=== PATIENT | female | born 1985 | race Caucasian/White ===

== ENCOUNTER → 2020-02-26 15:31 | Outpatient (BNVA) | payer OTHER, SELFPAY | PROVIDERS: PCP Internal Medicine; Visit Provider Internal Medicine | DX: J30.9 Allergic rhinitis, unspecified (principal); J44.9 Chronic obstructive pulmonary disease, unspecified; U07.1 COVID-19; E66.9 Obesity, unspecified; G47.33 Obstructive sleep apnea (adult) (pediatric); Z99.89 Dependence on other enabling machines and devices | CPT/HCPCS: Q3014 ==

== ENCOUNTER 2020-03-03 14:24 | Outpatient (REF) | payer OTHER, SELFPAY ==
[2020-03-03 15:10] LABS: Influenza A PCR NEGATIVE (Negative); Influenza B PCR NEGATIVE (Negative); Resp Syncy Virus RNA Qual PCR NEGATIVE (Negative)
[2020-03-03 15:14] LABS: SARS COV2 PCR INHOUSE POSITIVE (Negative)
== END 2020-03-03 14:25 | disposition home or self-care (01) ==
LOC: HO.LNP 14:24
PROVIDERS: Visit Provider Internal Medicine
DX: Z20.828 Contact with and (suspected) exposure to other viral communicable diseases (principal)
CPT/HCPCS: 0241U

== ENCOUNTER → 2020-03-13 14:24 | Outpatient (BNVA) | payer OTHER, SELFPAY | PROVIDERS: PCP Internal Medicine; Visit Provider Internal Medicine | DX: U07.1 COVID-19 (principal); J30.9 Allergic rhinitis, unspecified; G47.33 Obstructive sleep apnea (adult) (pediatric); J45.909 Unspecified asthma, uncomplicated; Z99.89 Dependence on other enabling machines and devices | CPT/HCPCS: 99212 ==

== ENCOUNTER 2020-03-21 14:56 | Outpatient (REF) | payer OTHER, SELFPAY ==
[2020-03-21 16:09] LABS: Estimated Average Glucose 108 mg/dL; Hemoglobin A1c % 5.4 %
[2020-03-21 16:32] LABS: Anion Gap 15 (12-20); Blood Urea Nitrogen 9 mg/dL (9-16); Calcium 8.8 mg/dL (8.4-10.2); Carbon Dioxide 24 mmol/L (22-29); Chloride 103 mmol/L (96-108); Estimated Glomerular Filt Rate > 60; Glucose Random 115 mg/dL (60-115); Potassium 4.3 mmol/L (3.3-5.1); Sodium 138 mmol/L (135-145)
[2020-03-21 16:54] LABS: Thyroid Stimulating Hormone 2.93 uIU/mL (0.32-4.0)
== END 2020-03-21 14:57 | disposition home or self-care (01) ==
LOC: HO.LAB 14:56
PROVIDERS: PCP Internal Medicine; Visit Provider Internal Medicine
DX: J45.909 Unspecified asthma, uncomplicated (principal); G47.33 Obstructive sleep apnea (adult) (pediatric); J44.9 Chronic obstructive pulmonary disease, unspecified
CPT/HCPCS: 36415; 80048; 83036; 84443

== ENCOUNTER 2020-06-13 14:59 | Outpatient (REF) | payer OTHER, SELFPAY ==
[2020-06-13 15:43] LABS: MANUAL DIFF FLAG NO
[2020-06-13 15:47] LABS: Basophils Absolute Auto 0.1 X10*3/uL (0.0-0.2); Basophils Percent Auto 0.5 % (0-2); Eosinophils Absolute Auto 0.3 X10*3/uL (0.0-0.4); Hematocrit 41.3 % (37-47); Hemoglobin 13.1 g/dl (12.0-16.0); Imm Gran Abs Auto 0.06 X10*3/uL (0.00-0.03); Imm Gran Pct Auto 0.5 % (0.0-0.4); Lymphocytes Percent Auto 24.3 % (20-40); Mean Corpuscular HGB Conc 31.7 g/dl (31.0-35.0); Mean Corpuscular Hemoglobin 27.8 pg (27.0-33.0); Mean Corpuscular Volume 87.5 fL (80-98); Mean Platelet Volume 9.5 fL (9.4-12.3); Monocytes Absolute Auto 0.7 X10*3/uL (0.1-1.2); Monocytes Percent Auto 5.7 % (2-11); Neutrophils Absolute Auto 8.4 X10*3/uL (2.0-8.3); Platelet Count 566 X10*3/uL (160-400); Red Blood Count 4.72 X10*6/uL (4.20-5.50); Red Cell Distribution Width 13.4 % (11.0-16.0); White Blood Count 12.5 X10*3/uL (4.8-10.8)
[2020-06-13 16:00] LABS: Glucose Urine UA NEG (NEG); Leukocyte Esterase Urine NEG (NEG); Nitrite Urine NEG (NEG); PH 5.5 (5.0-8.0); Specific Gravity - Urine 1.025 (1.005-1.025); Urine Blood NEG (NEG); Urine Ketones NEG (NEG); Urine Protein NEG (NEG-TRACE)
[2020-06-13 16:02] LABS: Appearance Urine CLEAR; Color Urine YELLOW
[2020-06-13 16:09] LABS: Alanine Aminotransferase 15 U/L (0-31); Albumin Level 4.3 g/dL (3.5-5.0); Alkaline Phosphatase 66 U/L (39-117); Anion Gap 14 (12-20); Aspartate Amino Transferase 14 U/L (5-31); Bilirubin Total 0.5 mg/dL (0.0-1.0); Blood Urea Nitrogen 12 mg/dL (9-16); Calcium 9.6 mg/dL (8.4-10.2); Carbon Dioxide 26 mmol/L (22-29); Chloride 102 mmol/L (96-108); Estimated Glomerular Filt Rate > 60; Glucose Random 79 mg/dL (60-115); Potassium 4.6 mmol/L (3.3-5.1); Sodium 137 mmol/L (135-145); Total Protein 7.2 g/dL (6.5-8.0)
[2020-06-13 16:19] LABS: Microalbum/Creatinine Ratio Ur 11.4 ug/mg cr
[2020-06-13 16:29] LABS: Thyroid Stimulating Hormone 2.67 uIU/mL (0.32-4.0)
== END 2020-06-13 15:00 | disposition home or self-care (01) ==
LOC: HO.LAB 14:59
PROVIDERS: PCP Internal Medicine; Visit Provider Internal Medicine
DX: R73.03 Prediabetes (principal); I10 Essential (primary) hypertension; Z87.898 Personal history of other specified conditions
CPT/HCPCS: 36415; 80053; 81003; 82043; 84443; 85025

== ENCOUNTER 2020-06-25 14:34 | Outpatient (REF) | payer OTHER, SELFPAY ==
[2020-06-28 05:56] LABS: HPV mRNA E6/E7 rflx Not Detected (Not Detected)
== END 2020-06-25 14:35 | disposition home or self-care (01) ==
LOC: HO.LAB 14:34
PROVIDERS: PCP Internal Medicine; Visit Provider Obstetrics & Gynecology
DX: Z01.419 Encounter for gynecological examination (general) (routine) without abnormal findings (principal); Z11.51 Encounter for screening for human papillomavirus (HPV); Z91.09 Other allergy status, other than to drugs and biological substances
CPT/HCPCS: 87624; 88142

== ENCOUNTER → 2020-08-04 13:58 | Outpatient (BNVA) | payer OTHER, SELFPAY | PROVIDERS: PCP Internal Medicine; Visit Provider Internal Medicine | DX: J45.909 Unspecified asthma, uncomplicated (principal); G47.33 Obstructive sleep apnea (adult) (pediatric); E66.01 Morbid (severe) obesity due to excess calories; Z99.89 Dependence on other enabling machines and devices; Z79.899 Other long term (current) drug therapy | CPT/HCPCS: 99212 ==

== ENCOUNTER 2020-09-11 08:32 | Outpatient (REF) | payer OTHER, SELFPAY ==
[2020-09-11 09:49] LABS: Anion Gap 14 (12-20); Blood Urea Nitrogen 9 mg/dL (9-16); Calcium 9.6 mg/dL (8.4-10.2); Carbon Dioxide 24 mmol/L (22-29); Chloride 105 mmol/L (96-108); Cholesterol 196 mg/dL; Estimated Glomerular Filt Rate > 60; Glucose Fasting 108 mg/dL (60-99); HDL Cholesterol 48 mg/dL; LDL Cholesterol Calculated 104 mg/dl; Potassium 4.8 mmol/L (3.3-5.1); Sodium 138 mmol/L (135-145); Triglycerides 221 mg/dL
== END 2020-09-11 08:33 | disposition home or self-care (01) ==
LOC: HO.LAB 08:32
PROVIDERS: Visit Provider Internal Medicine
DX: I10 Essential (primary) hypertension (principal); J45.909 Unspecified asthma, uncomplicated; G47.33 Obstructive sleep apnea (adult) (pediatric)
CPT/HCPCS: 36415; 80048; 80061

== ENCOUNTER → 2021-01-07 13:49 | Outpatient (BNVA) | payer OTHER, SELFPAY | PROVIDERS: PCP Internal Medicine; Visit Provider Internal Medicine ==

== ENCOUNTER → 2021-03-10 14:48 | Outpatient (BNVA) | payer OTHER, SELFPAY | PROVIDERS: PCP Internal Medicine; Visit Provider Internal Medicine ==

== ENCOUNTER 2021-10-29 17:33 | Outpatient (REF) | payer OTHER, SELFPAY ==
[2021-10-30 16:50] LABS: H Pylori Breath Test Negative (Negative)
== END 2021-10-29 17:34 | disposition home or self-care (01) ==
LOC: HO.LNP 17:33
PROVIDERS: Visit Provider Physician Assistant
DX: Z01.818 Encounter for other preprocedural examination (principal); G47.33 Obstructive sleep apnea (adult) (pediatric); E66.01 Morbid (severe) obesity due to excess calories; J44.9 Chronic obstructive pulmonary disease, unspecified; Z99.89 Dependence on other enabling machines and devices
CPT/HCPCS: 83013

== ENCOUNTER 2021-10-30 13:30 | Outpatient (REF) | payer OTHER, SELFPAY ==
--- NOTE | ~2021-10-30 | XR_ITS ---
EXAMINATION: XR CHEST 2 VIEWS CLINICAL INFORMATION: Morbid obesity. COMPARISON: Chest radiograph dated 11/12/2019. TECHNIQUE: Frontal and lateral views of the chest were obtained. FINDINGS: The heart, great vessels, pulmonary vasculature and mediastinum are normal. The lungs show no focal infiltrate, effusion or pneumothorax. There is mild elevation of the right hemidiaphragm. There is no acute osseous abnormality. XR/XR chest 2V IMPRESSION: No active cardiopulmonary disease.
--- NOTE | 2021-10-30 13:38 | ECG_ITS ---
Test Reason : e66.01 Blood Pressure : / mmHG Vent. Rate : 092 BPM Atrial Rate : 092 BPM P-R Int : 138 ms QRS Dur : 084 ms QT Int : 340 ms P-R-T Axes : 030 049 031 degrees QTc Int : 420 ms Normal sinus rhythm Normal ECG When compared with ECG of 23-DEC-2018 04:51, No significant change was found Referred By: Caryn Garibay Electronically Signed By:HUBER SALGADO
[2021-10-30 13:51] LABS: MANUAL DIFF FLAG NO
[2021-10-30 14:06] LABS: Basophils Absolute Auto 0.1 X10*3/uL (0.0-0.2); Basophils Percent Auto 0.6 % (0-2); Eosinophils Absolute Auto 0.3 X10*3/uL (0.0-0.4); Eosinophils Percent Auto 3.2 % (0-4); Hematocrit 40.8 % (37.0-47.0); Hemoglobin 13.3 g/dl (12.0-16.0); Imm Gran Abs Auto 0.04 X10*3/uL (0.00-0.03); Imm Gran Pct Auto 0.4 % (0.0-0.4); Lymphocytes Percent Auto 20.1 % (20-40); Mean Corpuscular HGB Conc 32.6 g/dl (31.0-35.0); Mean Corpuscular Hemoglobin 28.3 pg (27.0-33.0); Mean Corpuscular Volume 86.8 fL (80.0-98.0); Mean Platelet Volume 9.6 fL (9.4-12.3); Monocytes Absolute Auto 0.6 X10*3/uL (0.1-1.2); Monocytes Percent Auto 5.9 % (2-11); Neutrophils Absolute Auto 7.1 x10*3/uL (2.0-8.3); Neutrophils Percent Auto 69.8 % (45-73); Platelet Count 493 X10*3/uL (160-400); Red Cell Distribution Width 14.4 % (11.0-16.0); White Blood Count 10.1 X10*3/uL (4.8-10.8)
[2021-10-30 14:15] LABS: Estimated Average Glucose 108 mg/dL; Hemoglobin A1c % 5.4 %
[2021-10-30 14:35] LABS: Alanine Aminotransferase 21 U/L (0-31); Albumin Level 4.1 g/dL (3.5-5.0); Alkaline Phosphatase 63 U/L (39-117); Anion Gap 18 (12-20); Aspartate Amino Transferase 18 U/L (5-31); Bilirubin Total 0.4 mg/dL (0.0-1.0); Blood Urea Nitrogen 10 mg/dL (9-16); C Reactive Protein 2.07 mg/dL (< or = 0.50); Carbon Dioxide 23 mmol/L (22-29); Chloride 105 mmol/L (96-108); Cholesterol 197 mg/dL; Estimated Glomerular Filt Rate > 60; Glucose Random 106 mg/dL (60-115); HDL Cholesterol 60 mg/dL; Iron 125 mcg/dL (30-160); Percent Iron Saturation 25 % (15-50); Potassium 4.7 mmol/L (3.3-5.1); Sodium 141 mmol/L (135-145); Total Iron Binding Capacity 497 mcg/dL (228-428); Total Protein 7.3 g/dL (6.5-8.0); Unsaturated Iron Binding 372 ug/dL
[2021-10-30 14:58] LABS: LDL Cholesterol Calculated 96 mg/dl; Triglycerides 209 mg/dL
[2021-10-30 15:01] LABS: Folate 9.8 ng/mL (> or = 4.0); Vitamin B12 209 pg/mL (200-900)
[2021-10-30 15:03] LABS: Ferritin 38 ng/mL (10-122); Vitamin D 25-OH Total 18.2 ng/mL (>30)
[2021-10-30 15:33] LABS: Insulin 10 uU/mL (2-29)
[2021-11-01 13:56] LABS: PTHI 117 pg/mL (16-77)
[2021-11-03 16:56] LABS: Zinc 75 mcg/dL (60-130)
[2021-11-05 12:02] LABS: Vitamin A 66 mcg/dL (38-98)
[2021-11-06 06:32] LABS: Vitamin B1 13 nmol/L (8-30)
== END 2021-10-30 13:31 | disposition home or self-care (01) ==
LOC: HO.LAB 13:30
PROVIDERS: Visit Provider Physician Assistant
DX: Z01.818 Encounter for other preprocedural examination (principal); E66.01 Morbid (severe) obesity due to excess calories; G47.33 Obstructive sleep apnea (adult) (pediatric); J44.9 Chronic obstructive pulmonary disease, unspecified; Z99.89 Dependence on other enabling machines and devices
CPT/HCPCS: 36415; 71046; 80053; 80061; 82306; 82607; 82728; 82746; 83036; 83525; 83540; 83970; 84425; 84443; 84590; 84630; 85025; 86140; 93005

== ENCOUNTER → 2021-11-24 13:34 | Outpatient (BNVA) | payer OTHER, SELFPAY | PROVIDERS: PCP Nurse Practitioner Family; Visit Provider Dietitian, Registered | DX: E66.01 Morbid (severe) obesity due to excess calories (principal) | CPT/HCPCS: 97802 ==

== ENCOUNTER 2021-12-08 14:03 | Outpatient (REF) | payer OTHER, SELFPAY ==
[2021-12-08 15:36] LABS: Alanine Aminotransferase 22 U/L (0-31); Albumin Level 4.3 g/dL (3.5-5.0); Alkaline Phosphatase 68 U/L (39-117); Anion Gap 16 (12-20); Aspartate Amino Transferase 18 U/L (5-31); Bilirubin Total 0.4 mg/dL (0.0-1.0); Blood Urea Nitrogen 14 mg/dL (9-16); Calcium 9.6 mg/dL (8.4-10.2); Carbon Dioxide 25 mmol/L (22-29); Chloride 103 mmol/L (96-108); Estimated Glomerular Filt Rate > 60; Glucose Random 111 mg/dL (60-115); Potassium 4.5 mmol/L (3.3-5.1); Sodium 139 mmol/L (135-145)
[2021-12-10 14:57] LABS: Calcium (PTHI) 9.4 mg/dL (8.6-10.2); PTHI 68 pg/mL (16-77)
[2021-12-12 07:32] LABS: Calcium, Ionized 4.9 mg/dL (4.8-5.6)
== END 2021-12-08 14:04 | disposition home or self-care (01) ==
LOC: HO.LAB 14:03
PROVIDERS: PCP Nurse Practitioner Family; Visit Provider Nurse Practitioner Family
DX: E34.9 Endocrine disorder, unspecified (principal)
CPT/HCPCS: 36415; 80053; 82330; 83970

== ENCOUNTER → 2021-12-08 14:32 | Outpatient (BNV) | payer OTHER, SELFPAY | PROVIDERS: PCP Nurse Practitioner Family; Referring Provider Nurse Practitioner Family; Visit Provider Internal Medicine | DX: D75.839 Thrombocytosis, unspecified (principal) | CPT/HCPCS: 99204; 99213; 99214 ==

== ENCOUNTER → 2021-12-10 13:00 | Outpatient (BNVA) | payer OTHER, SELFPAY | PROVIDERS: Visit Provider Counselor Mental Health | DX: F43.20 Adjustment disorder, unspecified (principal); E66.01 Morbid (severe) obesity due to excess calories | CPT/HCPCS: 90791 ==

== ENCOUNTER → 2021-12-15 13:20 | Outpatient (BNVA) | payer OTHER, SELFPAY | PROVIDERS: PCP Nurse Practitioner Family; Visit Provider Dietitian, Registered | DX: E66.01 Morbid (severe) obesity due to excess calories (principal); Z68.42 Body mass index [BMI] 45.0-49.9, adult | CPT/HCPCS: 97803 ==

== ENCOUNTER 2021-12-17 07:54 | Outpatient (REF) | payer OTHER, SELFPAY ==
--- NOTE | ~2021-12-17 | FL_ITS ---
EXAMINATION: XR FLUOROSCOPY UPPER GI WITH AIR CLINICAL INFORMATION: Obesity. COMPARISON: None. TECHNIQUE: Air-contrast upper GI examination. FINDINGS: There is normal apposition of the vocal cords while saying E. There is normal elevation of the soft palate while saying candy. Patient swallowed thin and thick barium and a half-inch diameter barium tablet without difficulty. No nasopharyngeal reflux or tracheal aspiration identified. There is normal esophageal motility without evidence of persistent stricture or ulcerations/erosions. No hiatal hernia was identified. There was noted to be mild gastroesophageal reflux within the distal 3rd of the esophagus which cleared rapidly. The stomach demonstrated normal distensibility without evidence of abnormal mass or ulceration. There was no delay in gastric emptying. The duodenal bulb and sweep appeared unremarkable. FLUOROSCOPY TIME: 1.4 minutes. DOSE AREA PRODUCT: 13.768 Gy-cm2 (em-centimeter squared) FL/FL upper GI w air IMPRESSION: Mild gastroesophageal reflux distal 3rd of the esophagus which clears rapidly. Otherwise unremarkable air-contrast upper GI examination.
--- NOTE | ~2021-12-17 | US_ITS ---
EXAMINATION: US COMPLETE ABDOMEN WITH LIVER ELASTOGRAPHY CLINICAL INFORMATION: Obesity COMPARISON: Previous abdominal ultrasound February 2015 TECHNIQUE: Real-time imaging of the abdominal viscera. Noninvasive ultrasound liver fibrosis assessment is performed using Tyson ElastPQ point quantification shear wave elastography (2D-SWE) with a C5-2 MHz transducer. Multiple elastography samples are obtained. FINDINGS: PANCREAS: Normal. ABDOMINAL AORTA: The proximal and middle aortic segments are normal in caliber. Distal abdominal aorta is not well visualized bowel gas. INFERIOR VENA CAVA: Visualized portions are normal. LIVER: Liver echotexture is slightly increased. The liver is enlarged. The liver contour is normal. No focal lesion or intrahepatic biliary duct dilatation. The right lobe measures 23 cm in length. The left lobe measures 13 cm in length. Portal flow is normal/hepatopedal Shear wave liver elastography median stiffness is 2.4 m/s (reference: normal median stiffness is 1.3 m/s or less). IQR/median stiffness to assess sampling precision is 0.07 (reference: good quality data set is IQR/median stiffness of 0.15 or less). GALLBLADDER: Normal. The gallbladder is physiologically distended without evidence of stones, sludge, polyps, wall thickening or pericholecystic fluid. COMMON BILE DUCT: Normal in caliber measuring 0.6 cm in diameter. RIGHT KIDNEY: Normal. No hydronephrosis. No renal calculi or focal parenchymal lesions. The kidney measures 13 cm in maximum dimension. LEFT KIDNEY: Normal. No hydronephrosis. No renal calculi or focal parenchymal lesions. The kidney measures 13 cm in maximum dimension. SPLEEN: Normal. The spleen measures 12 cm in maximum dimension. FREE FLUID: None. US/US abdomen comp w elastography IMPRESSION: 1. Impression enlarged echogenic liver. No focal liver lesion or evidence of cirrhosis. Limited visualization of the distal abdominal aorta. 2. Liver elastography: Adequate liver sampling. Increased liver stiffness suggestive of clinically significant portal hypertension. REFERENCE: Society of Radiologists in Ultrasound Liver Stiffness Thresholds (2020): LIVER STIFFNESS THRESHOLDS: *Liver Stiffness equal or less than 1.3 m/s: High probability of being normal. *Liver Stiffness less than 1.7 m/s: In the absence of other known clinical signs, rules out compensated advanced chronic liver disease. *Liver Stiffness 1.7-2.1 m/s: Suggestive of compensated advanced chronic liver disease but need further test for confirmation. *Liver Stiffness over 2.1 m/s: Rules in compensated advanced chronic liver disease. *Liver Stiffness over 2.4 m/s: Suggestive of clinically significant portal hypertension. QUALITY OF DATA SET: *IQR/Median value equal or less than 0.15 implies a quality data set. *IQR/Median value over 0.15 implies a poor quality data set. SIGNIFICANT CHANGE FROM PRIOR EXAM: Significant change if liver stiffness measurement is 10% or greater from prior exam. OTHER CONSIDERATIONS: The stage of liver fibrosis may be overestimated in the setting of acute hepatitis, liver inflammation, elevated liver function tests, hepatic vascular congestion, obstructive cholestasis, non-fasting state, and infiltrative diseases such as amyloidosis and lymphoma. In some patients with NAFLD, the liver stiffness thresholds for compensated advanced chronic liver disease may be lower. In causes other than viral hepatitis and NAFLD, liver stiffness thresholds are not well established.
== END 2021-12-17 07:55 | disposition home or self-care (01) ==
LOC: HO.US 07:54
PROVIDERS: Visit Provider Physician Assistant
DX: Z01.818 Encounter for other preprocedural examination (principal); E66.01 Morbid (severe) obesity due to excess calories; G47.33 Obstructive sleep apnea (adult) (pediatric); J44.9 Chronic obstructive pulmonary disease, unspecified; Z99.89 Dependence on other enabling machines and devices
CPT/HCPCS: 74246; 76705; 76981

== ENCOUNTER → 2021-12-23 14:07 | Outpatient (REF) | payer OTHER, SELFPAY ==
--- NOTE | 2021-12-23 14:11 | CA_ITS ---
Transthoracic Echocardiogram Amended Patient (Last, First, Middle): Kellie Abraham A Gender: Female Date of : 1985 Age: 36 Procedure Date: 12/23/2021 Procedure Type: Transthoracic Echocardiogram Location: OP Height: 162.56 cm Weight: 130.64 kg BSA: 2.28 m2 Heart Rate: bpm BP: 170 / 100 mmHg Poly Operator: AJ Referring MD: Emmanuel Collins [facility] Symptoms: R01.1 - Cardiac murmur, unspecified Study Quality: Adequate ECG Rhythm: Sinus Conclusions: - The left ventricular systolic function is normal. The calculated ejection fraction is 63% by biplane method. - Possible basal inferior hypokinesis. - No obvious valvular pathology seen on this study. Findings Left Ventricle Normal left ventricular cavity size. There is normal left ventricular wall thickness. The left ventricular systolic function is normal. The calculated ejection fraction is 63% by biplane method. Diastolic function is normal for age. Possible basal inferior hypokinesis. Right Ventricle Normal right ventricular cavity size and systolic function. Atria Both atria are normal in size. Aortic Valve There is a normal trileaflet aortic valve. There is no aortic valve stenosis. There is trace (trivial) aortic valve regurgitation. Mitral Valve The mitral valve appears normal. There is trace mitral valve regurgitation. There is no mitral valve stenosis. Pulmonic Valve The pulmonic valve is likely normal. Tricuspid Valve Normal tricuspid valve structure. There is trace tricuspid valve regurgitation. There is no evidence of pulmonary hypertension. Great Vessels The asc aorta is normal in size. Venous The inferior vena cava is normal in size and collapses greater than 50% with inspiration. Pericardium/Pleural There is no evidence of pericardial effusion. Prior Study Comparison No prior study available for comparison. Recommendations, Care & Conclusions No obvious valvular pathology seen on this study. Measurements 2D Linear Measurements IVSd: 1.00 0.6-0.9/0.6-1.0 cm LVIDd: 5.02 3.9-5.3/4.2-5.9 cm LVIDd Index: 2.20 2.4-3.2/2.2-3.1 cm/m2 LVIDs: 2.99 2.0-3.6 cm LVPWd: 1.00 0.7-1.1 cm LA Diam: 3.80 2.7-3.8/3.0-4.0 cm LAIDs Index: 1.67 1.5-2.3 cm/m2 LV Mass: 228.22 67-162/88-224 g LV Mass Index: 100.10 43-95/49-115 g/m2 LVOT Diam: 1.90 3.0+(-)1.3 cm 2D Volumes LA Vol: 20.40 2D Systolic Function EF 4C: 54.30 >55% EF 2C: 68.20 >55% EF BiP: 62.50 >55% Mitral Valve MV Pk E: 1.30 MV PK A: 0.88 MV Decel Time: 189.00 E/A: 1.50 E'Lateral: 11.40 E'Medial: 7.45 E/E' Med: 17.40 E/E' Lat: 11.40 PHT: 55.00 MVA PHT: 4.00 Decel [place]: 6.86 Aortic Valve AoV Pk [place]: 1.47 AoV Mn [place]: 1.02 AoV VTI: 0.31 AoV Pk Grad: 9.00 Aov Mn Grad: 5.00 ANAT Cont.VTI: 2.62 LVOT LVOT Pk [place]: 1.32 LVOT Mn [place]: 0.91 LVOT VTI: 0.29 LVOT Pk Grad: 7.00 LVOT Mn Grad: 4.00 LVOT Diam: 1.90 LVOT Area: 2.84 Diastolic Function MV Pk E: 1.30 MV Pk A: 0.88 E/A: 1.50 E'Medial: 7.45 E/E' Med: 17.40 E' Laterial: 11.40 E/E' Lat: 11.40 Right Ventricle TAPSE (mm): 20.30 TVS' [place]: 11.70 Tricuspid Valve TR Pk [place]: 1.81 TR Pk Grad: 13.00 RA Press: 3.00 RVSP: 16.00 Great Vessels Aorta Sinus of Valsalva: 3.10 2.0-3.5 cm Ao Asc: 3.20 2.1-3.4 cm Pulmonary Valve PV Pk [place]: 1.03 Peak PV Grad: 4.00 Updated in Other Vendor System with Status of Final Danilo Lorenzo MD electronically signed on 04/06/2022 3:23:33 PM with status of Final
== END ==
LOC: HO.CARD 14:07
PROVIDERS: Visit Provider Nurse Practitioner Family
DX: R01.1 Cardiac murmur, unspecified (principal)
CPT/HCPCS: 93306

== ENCOUNTER 2021-12-27 11:05 | Emergency (ER) | payer OTHER, SELFPAY ==
--- NOTE | 2021-12-27 | ECG_ITS ---
Test Reason : CHEST PAIN/SOB Blood Pressure : / mmHG Vent. Rate : 134 BPM Atrial Rate : 134 BPM P-R Int : 124 ms QRS Dur : 082 ms QT Int : 290 ms P-R-T Axes : 044 065 021 degrees QTc Int : 433 ms Sinus tachycardia Abnormal ECG When compared with ECG of 30-OCT-2021 13:43, Heart rate has increased Referred By: Generic ED Physician Electronically Signed By:KERI FISCHER MD
--- NOTE | ~2021-12-27 | XR_ITS ---
EXAMINATION: XR CHEST CLINICAL INFORMATION: Cough. COMPARISON: None TECHNIQUE: PA view of the chest was obtained. XR/XR chest 1V FINDINGS/IMPRESSION: The study is limited by portable technique, low lung volumes, and patient body habitus. Approximately 1.7 cm, round density projects over the confluence of pulmonary vessels and ribs, and was not clearly evident 2 months prior. Differential diagnosis includes, but is not limited to, overlapping normal anatomical structures, and, less likely, unusual infiltrate, etc. If further imaging is clinically desired, repeat standing upright PA, lateral, and bilateral oblique views of the chest in full inspiration may be of use for further evaluation. The study is otherwise essentially unremarkable. No effusion or pneumothorax is seen. The cardiovascular structures, mediastinum, diaphragm, bones and soft tissues appear unremarkable.
--- NOTE | ~2021-12-27 | CT_ITS ---
EXAMINATION: CT ANGIOGRAM OF THE CHEST WITH AND WITHOUT CONTRAST (CT PULMONARY ANGIOGRAM FOR PE) CLINICAL INFORMATION: Reason for Exam SOB, tachycardia COMPARISON: 02/03/2018 TECHNIQUE: Prior to contrast administration, noncontrast localization images were obtained. Subsequently, multidetector volumetric imaging was performed from the thoracic inlet to below the diaphragms following the administration of 140 mL Omnipaque 350 intravenous contrast. Repeat bolus was required due to suboptimal first scan No contrast reaction reported Sagittal, coronal, and MIP oblique sagittal reformatted images were obtained on the CT workstation, uploaded to PACS, and reviewed. This CT examination was performed using dose optimization techniques as appropriate, variously including the following: *Automated exposure control *Adjustment of mA and/or kV according to patient size (this includes techniques or standardized protocols for targeted exams where dose is matched to indication/reason for exam; i.e. extremities or head) *Use of iterative reconstruction technique Total exam dose-length product 1001 mGy-cm FINDINGS: QUALITY OF STUDY/CONTRAST BOLUS: Suboptimal. PULMONARY ARTERIES: No central or lobar pulmonary embolus is seen. However, there is inadequate assessment of the segmental and subsegmental vessels bilaterally due to suboptimal bolus timing, and therefore emboli at these levels cannot be entirely excluded. THORACIC AORTA: No aneurysm or dissection. LUNG: There is a focal region of consolidation in the posterior right lower lobe measuring up to approximately 4.6 cm. Additional patchy, less well-defined region of opacity is also present in the anterior right upper lobe. The left lung appears clear. PLEURA: No pleural effusion or pneumothorax. MEDIASTINUM: Visualized thyroid gland is unremarkable. A few mildly prominent right paratracheal lymph nodes are noted, which may be reactive. Borderline cardiomegaly without pericardial effusion. No evidence of septal bowing or right heart strain. CHEST WALL/AXILLA: No axillary or internal mammary lymphadenopathy. OSSEOUS STRUCTURES: No acute or suspicious osseous abnormality. UPPER ABDOMEN: Unremarkable. No reflux of contrast into the hepatic veins to suggest elevated right heart pressures. CT/CT angio chest PE protocol IMPRESSION: 1. No central or lobar pulmonary embolus identified. However, there is inadequate assessment of the segmental and subsegmental vessels bilaterally due to suboptimal bolus timing, and therefore emboli at these levels cannot be entirely excluded. 2. Focal region of consolidation in the posterior right lower lobe, suspicious for pneumonia. Additional patchy region of opacity in the anterior right upper lobe. Given the focal appearance of the right lower lobe consolidation, follow-up chest CT in 3 months is advised to assess for resolution and exclude underlying mass. 3. Mildly prominent right paratracheal lymph nodes, which may be reactive. VTE: negative
[2021-12-27 11:14] VITALS: BP 183/95; PULSE 143; RESP 20; TEMP 37.8; O2SAT 97; BMI 31.9
[2021-12-27 11:55] LABS: Basophils Absolute Auto 0.1 X10*3/uL (0.0-0.2); Basophils Percent Auto 0.3 % (0-2); Eosinophils Percent Auto 0.1 % (0-4); Hemoglobin 13.9 g/dl (12.0-16.0); Imm Gran Abs Auto 0.11 X10*3/uL (0.00-0.03); Imm Gran Pct Auto 0.6 % (0.0-0.4); Lymphocytes Absolute Auto 1.4 X10*3/uL (1.2-4.9); Lymphocytes Percent Auto 7.2 % (20-40); MANUAL DIFF FLAG SCAN; Mean Corpuscular HGB Conc 33.1 g/dl (31.0-35.0); Mean Corpuscular Hemoglobin 28.4 pg (27.0-33.0); Mean Corpuscular Volume 85.9 fL (80.0-98.0); Mean Platelet Volume 10.1 fL (9.4-12.3); Monocytes Absolute Auto 1.1 X10*3/uL (0.1-1.2); Neutrophils Absolute Auto 16.2 x10*3/uL (2.0-8.3); Neutrophils Percent Auto 85.8 % (45-73); PLT CLUMP 1; Red Blood Count 4.89 X10*6/uL (4.20-5.50); SCAN SMEAR FLAG 1
[2021-12-27 12:09] LABS: Anion Gap 22 (12-20); Blood Urea Nitrogen 10 mg/dL (9-16); Calcium 9.2 mg/dL (8.4-10.2); Carbon Dioxide 16 mmol/L (22-29); Chloride 104 mmol/L (96-108); Creatinine Clr Calc Pharmacy 115.7; Estimated Glomerular Filt Rate > 60; Glucose Random 145 mg/dL (60-115); Potassium 4.5 mmol/L (3.3-5.1); Sodium 137 mmol/L (135-145)
[2021-12-27 12:16] LABS: Platelet Count 389 X10*3/uL (160-400); White Blood Count 18.9 X10*3/uL (4.8-10.8)
[2021-12-27 12:17] LABS: COVID-19 Test Negative (Negative); SLIDE REVIEW VERIFIED
[2021-12-27 18:13] VITALS: BP 147/110; PULSE 120; RESP 18; TEMP 37.3; O2SAT 98
[2021-12-27 18:19] VITALS: O2SAT 98
[2021-12-27 19:26] VITALS: PULSE 116
--- NOTE | 2021-12-27 20:07 | ED.URI ---
HPI - URI/Sore Throat General Chief Complaint: Upper Respiratory Symptoms Stated Complaint: Chest pain/Fever Time Seen by Provider: 12/27/21 19:21 Source: patient Mode of arrival: ambulatory History of Present Illness HPI Narrative: 36-year-old female has been feeling unwell with body aches, cough, sore throat and noted that she had a fever at noon today that was measured at 102 and patient took Tylenol. Otherwise, she denies any shortness of breath, chest pain/palpitations, nausea, vomiting, diarrhea, nasal congestion. Related Data Home Medications Medication Instructions Recorded Confirmed fexofenadine 60 mg capsule 180 mg PO DAILY 01/07/21 12/08/21 amlodipine 10 mg tablet 5 mg PO DAILY 10/13/21 12/08/21 Previous Rx's Medication Instructions Recorded albuterol sulfate 90 mcg/actuation 2 puff inhalation Q4-6H PRN 03/07/20 aerosol inhaler (ProAir HFA) shortness of breath or wheezing #8.5 grams cholecalciferol (vitamin D3) 50 50 mcg PO DAILY #30 caps 11/02/21 mcg (2,000 unit) capsule cyanocobalamin (vitamin B-12) 500 500 mcg PO DAILY #30 tabs 11/02/21 mcg tablet l.norgest-eth.estradiol triphasic 1 tab PO DAILY 30 days #30 tabs 11/12/21 50-30 (6)/75-40(5)/125-30(10) tablet fluticasone 250 mcg-salmeterol 50 1 inh inhalation BID 90 days #3 ea 11/13/21 mcg/dose blistr powdr for inhalation montelukast 10 mg tablet 10 mg PO DAILY #90 tabs 11/13/21 doxycycline hyclate 100 mg capsule 100 mg PO BID 7 days #14 caps 12/28/21 Allergies Allergy/AdvReac Type Severity Reaction Status Date / Time ENVIRONMENTAL Allergy Intermediate RUNNY Uncoded 12/02/21 15:07 NOSE, ASTHMA FLARE UP Review of Systems Review of Systems: Pertinent positives and negatives as stated in HPI 10 point review of systems is otherwise negative. PMFSH Past Medical History Source: nursing notes reviewed Medical History Allergic rhinitis Asthma Chest pain COPD (chronic obstructive pulmonary disease) COVID-19 Morbid obesity Obesity (BMI 30-39.9) TISHA on CPAP Surgical History History of carpal tunnel surgery History of loop electrical excision procedure (LEEP) Family History Family History Father HTN (hypertension) Mother HTN (hypertension) Social History Social History Household Members: None Housing: Apartment Alcohol intake: current Alcohol intake frequency: holidays/special occasions only Patient Tobacco Use Status: Never used Tobacco Smoked in Last 30 Days: No e-Cigarette/Vaping Use: Never Used Second Hand Smoke Exposure: No Use of substances other than those prescribed or required for medical reasons: No Advance Directives: No Advance Directives Information Provided: Yes service: No Current occupational status: employed Current occupation: [employer] Current occupational exposures/hazards: No Gender identity: Female Cognitive needs: No Hearing needs: No Vision needs: No Physical Exam Vital Signs: Vital Signs: Last Vital Signs Temp 99.0 F 12/27/21 20:56 Pulse 106 H 12/27/21 22:00 Resp 20 12/27/21 22:00 BP 173/83 H 12/27/21 20:56 Pulse Ox 96 12/27/21 22:00 O2 Del Method 12/27/21 22:00 BMI result Body Mass Index 31.9 VITAL SIGNS: Reviewed. GENERAL: Elevated BMI, Well developed, well nourished, in no acute distress. HEAD: Normocephalic/atraumatic EYES: PERRLA, EOMI EARS: Ext canals without abnormality OROPHARYNX: no oral lesions noted, posterior pharynx clear NECK: Supple, no adenopathy LUNGS: Normal breath sounds. No adventitious sounds or accessory muscle use. SpO2<98> CARDIOVASCULAR: Regular rate and rhythm without noted murmurs ABDOMEN: Soft, non-tender, non-distended with bowel sounds. MUSCULOSKELETAL: No tenderness, deformities, or effusions noted on gross inspection. EXTREMITIES: No cyanosis, clubbing or edema. SKIN: Inspection of the skin reveals no rashes NEUROLOGIC: Alert and oriented x 4. Strength and sensation to light touch were grossly intact x 4. Course Course Course Narrative: 36-year-old female with history and clinical presentation consistent with viral syndrome and suspect RSV as on review of all investigations she is negative for COVID-19 On review of all investigations patient has a pneumonia, she is oxygenating well otherwise and hers received IV fluids as well as antibiotics. All results were discussed with her bedside she is discharged home in stable condition with antibiotics for pneumonia and suspect the urinalysis is a dirty urine given the number squamous epithelial cells. Patient received antibiotics in the emergency room, heart rate is noted to have improved. And she is discharged home in stable condition. MDM - URI/Sore Throat Lab Data Result diagrams: 12/27/21 11:47 12/27/21 11:47 Labs: Lab Results 12/27/21 12/27/21 12/27/21 Range/Units 11:47 11:47 11:47 WBC 18.9 H (4.8-10.8) X10*3/uL RBC 4.89 (4.20-5.50) X10*6/uL Hgb 13.9 (12.0-16.0) g/dl Hct 42.0 (37.0-47.0) % MCV 85.9 (80.0-98.0) fL MCH 28.4 (27.0-33.0) pg MCHC 33.1 (31.0-35.0) g/dl RDW 14.0 (11.0-16.0) % Plt Count 389 (160-400) X10*3/uL MPV 10.1 (9.4-12.3) fL Immature Gran % (Auto) 0.6 H (0.0-0.4) % Neut % (Auto) 85.8 H (45-73) % Lymph % (Auto) 7.2 L (20-40) % [place] % (Auto) 6.0 (2-11) % Eos % (Auto) 0.1 (0-4) % Baso % (Auto) 0.3 (0-2) % Lymph # (Auto) 1.4 (1.2-4.9) X10*3/uL [place] # (Auto) 1.1 (0.1-1.2) X10*3/uL Eos # (Auto) 0.0 (0.0-0.4) X10*3/uL Baso # (Auto) 0.1 (0.0-0.2) X10*3/uL Abs Immat Gran (auto) 0.11 H (0.00-0.03) X10*3/uL Absolute Neuts (auto) 16.2 H (2.0-8.3) x10*3/uL Absolute Nucleated RBC 0.000 (0.0-0.012) X10*3/uL Nucleated RBC % (auto) 0.0 (0.0-0.2) /100WBC Smear Tech's Comments VERIFIED D-Dimer High Sensitivty NG/ML Sodium 137 (135-145) mmol/L Potassium 4.5 (3.3-5.1) mmol/L Chloride 104 (96-108) mmol/L Carbon Dioxide 16 L (22-29) mmol/L Anion Gap 22 H (12-20) BUN 10 (9-16) mg/dL Creatinine 0.72 (0.5-1.4) mg/dL Estim Creat Clear Calc 115.7 Estimated GFR > 60 Random Glucose 145 H (60-115) mg/dL Calcium 9.2 (8.4-10.2) mg/dL Beta HCG, Quant 5 mIU/mL Urine Color Urine Appearance Urine pH (5.0-9.0) Ur Specific [place] (1.005-1.025) Urine Protein (Neg-Trace) mg/dL Urine Glucose (UA) (Negative) mg/dL Urine Ketones (Negative) mg/dL Urine Blood (Negative) Urine Nitrite (Negative) Ur Leukocyte Esterase (Negative) Urine RBC (0-2) /HPF Urine WBC (0-5) /HPF Ur Squamous Epith Cells (0-2) /HPF Urine Bacteria (None Seen) Hyaline Casts (0-2) /LPF COVID-19 (EZ) Negative (Negative) COVID-19 Clin Com See Note Influenza Type A (PCR) (Negative) Influenza Type B (PCR) (Negative) RSV RNA Qual (PCR) (Negative) SARS-CoV-2 RNA (RT-PCR) (Negative) S. pyogenes GrpA MARCY (Negative) 12/27/21 12/27/21 12/27/21 Range/Units 19:41 21:03 21:11 WBC (4.8-10.8) X10*3/uL RBC (4.20-5.50) X10*6/uL Hgb (12.0-16.0) g/dl Hct (37.0-47.0) % MCV (80.0-98.0) fL MCH (27.0-33.0) pg MCHC (31.0-35.0) g/dl RDW (11.0-16.0) % Plt Count (160-400) X10*3/uL MPV (9.4-12.3) fL Immature Gran % (Auto) (0.0-0.4) % Neut % (Auto) (45-73) % Lymph % (Auto) (20-40) % [place] % (Auto) (2-11) % Eos % (Auto) (0-4) % Baso % (Auto) (0-2) % Lymph # (Auto) (1.2-4.9) X10*3/uL [place] # (Auto) (0.1-1.2) X10*3/uL Eos # (Auto) (0.0-0.4) X10*3/uL Baso # (Auto) (0.0-0.2) X10*3/uL Abs Immat Gran (auto) (0.00-0.03) X10*3/uL Absolute Neuts (auto) (2.0-8.3) x10*3/uL Absolute Nucleated RBC (0.0-0.012) X10*3/uL Nucleated RBC % (auto) (0.0-0.2) /100WBC Smear Tech's Comments D-Dimer High Sensitivty 391 NG/ML Sodium (135-145) mmol/L Potassium (3.3-5.1) mmol/L Chloride (96-108) mmol/L Carbon Dioxide (22-29) mmol/L Anion Gap (12-20) BUN (9-16) mg/dL Creatinine (0.5-1.4) mg/dL Estim Creat Clear Calc Estimated GFR Random Glucose (60-115) mg/dL Calcium (8.4-10.2) mg/dL Beta HCG, Quant mIU/mL Urine Color Yellow Urine Appearance Cloudy Urine pH 6.5 (5.0-9.0) Ur Specific [place] >= 1.030 H (1.005-1.025) Urine Protein Trace (Neg-Trace) mg/dL Urine Glucose (UA) Negative (Negative) mg/dL Urine Ketones Trace (Negative) mg/dL Urine Blood Negative (Negative) Urine Nitrite Negative (Negative) Ur Leukocyte Esterase Moderate (2+) H (Negative) Urine RBC 3-5 H (0-2) /HPF Urine WBC 21-50 H (0-5) /HPF Ur Squamous Epith Cells 11-20 (0-2) /HPF Urine Bacteria 4+ (None Seen) Hyaline Casts 0-2 (0-2) /LPF COVID-19 (EZ) (Negative) COVID-19 Clin Com Influenza Type A (PCR) NEGATIVE (Negative) Influenza Type B (PCR) NEGATIVE (Negative) RSV RNA Qual (PCR) NEGATIVE (Negative) SARS-CoV-2 RNA (RT-PCR) NEGATIVE (Negative) S. pyogenes GrpA MARCY (Negative) 12/27/21 Range/Units 23:22 WBC (4.8-10.8) X10*3/uL RBC (4.20-5.50) X10*6/uL Hgb (12.0-16.0) g/dl Hct (37.0-47.0) % MCV (80.0-98.0) fL MCH (27.0-33.0) pg MCHC (31.0-35.0) g/dl RDW (11.0-16.0) % Plt Count (160-400) X10*3/uL MPV (9.4-12.3) fL Immature Gran % (Auto) (0.0-0.4) % Neut % (Auto) (45-73) % Lymph % (Auto) (20-40) % [place] % (Auto) (2-11) % Eos % (Auto) (0-4) % Baso % (Auto) (0-2) % Lymph # (Auto) (1.2-4.9) X10*3/uL [place] # (Auto) (0.1-1.2) X10*3/uL Eos # (Auto) (0.0-0.4) X10*3/uL Baso # (Auto) (0.0-0.2) X10*3/uL Abs Immat Gran (auto) (0.00-0.03) X10*3/uL Absolute Neuts (auto) (2.0-8.3) x10*3/uL Absolute Nucleated RBC (0.0-0.012) X10*3/uL Nucleated RBC % (auto) (0.0-0.2) /100WBC Smear Tech's Comments D-Dimer High Sensitivty NG/ML Sodium (135-145) mmol/L Potassium (3.3-5.1) mmol/L Chloride (96-108) mmol/L Carbon Dioxide (22-29) mmol/L Anion Gap (12-20) BUN (9-16) mg/dL Creatinine (0.5-1.4) mg/dL Estim Creat Clear Calc Estimated GFR Random Glucose (60-115) mg/dL Calcium (8.4-10.2) mg/dL Beta HCG, Quant mIU/mL Urine Color Urine Appearance Urine pH (5.0-9.0) Ur Specific [place] (1.005-1.025) Urine Protein (Neg-Trace) mg/dL Urine Glucose (UA) (Negative) mg/dL Urine Ketones (Negative) mg/dL Urine Blood (Negative) Urine Nitrite (Negative) Ur Leukocyte Esterase (Negative) Urine RBC (0-2) /HPF Urine WBC (0-5) /HPF Ur Squamous Epith Cells (0-2) /HPF Urine Bacteria (None Seen) Hyaline Casts (0-2) /LPF COVID-19 (EZ) (Negative) COVID-19 Clin Com Influenza Type A (PCR) (Negative) Influenza Type B (PCR) (Negative) RSV RNA Qual (PCR) (Negative) SARS-CoV-2 RNA (RT-PCR) (Negative) S. pyogenes GrpA MARCY Negative (Negative) Discharge Plan Discharge Clinical Impression: Pneumonia Patient Disposition: Home, Self-Care Instructions: Pneumonia (ED) Additional Instructions: 1. Resume all home medications as prescribed. 2. Complete the entire course of antibiotics as prescribed. 3. Recommend that you utilize [id number] Tylenol as needed for temperatures greater than 100.4. 4. Please follow-up with your primary care provider by calling the office tomorrow morning and setting up an appointment for re-evaluation. Return to the ER for worsening symptoms. Prescriptions: New doxycycline hyclate 100 mg capsule 100 mg PO BID 7 Days Qty: 14 0RF No Action albuterol sulfate [ProAir HFA] 90 mcg/actuation HFA aerosol inhaler 2 puff inhalation Q4-6H PRN (Reason: shortness of breath or wheezing) Qty: 8.5 2RF cyanocobalamin (vitamin B-12) 500 mcg tablet 500 mcg PO DAILY Qty: 30 6RF cholecalciferol (vitamin D3) 50 mcg (2,000 unit) capsule 50 mcg PO DAILY Qty: 30 6RF levonorg-eth estrad triphasic 50-30 (6)/75-40 (5)/125-30(10) tablet 1 tab PO DAILY 30 Days Qty: 30 2RF fluticasone propion-salmeterol 250-50 mcg/dose blister with device 1 inh inhalation BID 90 Days Qty: 3 2RF montelukast 10 mg tablet 10 mg PO DAILY Qty: 90 1RF fexofenadine 60 mg capsule 180 mg PO DAILY amlodipine 10 mg tablet 5 mg PO DAILY Referrals: Emmanuel Collins, [employer] [Primary Care Provider] -
[2021-12-27 20:28] LABS: Influenza A PCR NEGATIVE (Negative); Influenza B PCR NEGATIVE (Negative); Resp Syncy Virus RNA Qual PCR NEGATIVE (Negative); SARS COV2 PCR INHOUSE NEGATIVE (Negative)
[2021-12-27 20:56] VITALS: BP 173/83; PULSE 112; RESP 20; TEMP 37.2; O2SAT 95
[2021-12-27 21:13] LABS: HCG Quantitative 5 mIU/mL
[2021-12-27 21:17] LABS: Appearance Urine Cloudy; Color Urine Yellow; Glucose Urine UA Negative (Negative); Leukocyte Esterase Urine Moderate (2+) (Negative); Nitrite Urine Negative (Negative); PH 6.5 (5.0-9.0); Specific Gravity - Urine >= 1.030 (1.005-1.025); UMIC TRIGGER UACC YES; Urine Blood Negative (Negative); Urine Ketones Trace mg/dL (Negative); Urine Protein Trace mg/dL (Neg-Trace)
[2021-12-27 21:22] LABS: Bacteria Urine 4+ (None Seen); Hyaline Casts Urine 0-2 /LPF (0-2); UACC Culture Trigger YES; WBC Urine 21-50 /HPF (0-5)
[2021-12-27 21:23] LABS: D Dimer High Sensitivity 391 NG/ML
[2021-12-27 22:00] VITALS: PULSE 106; RESP 20; O2SAT 96
[2021-12-27] MEDS: ondansetron HCL 4 MG/2 ML VIAL IVPUSH (22:27)
[2021-12-27] MEDS: Acetaminophen 325 MG TABLET 975 MG PO (22:27)
[2021-12-27] MEDS: 0.9 % Sodium Chloride 1,000 ML 999 ML IV (22:40)
--- NOTE | 2021-12-27 23:20 | PC.NURSE ---
per Dr Prieto blood cultures and lactic acid are not needed at this time 2320.
[2021-12-27] MEDS: cefTRIAXone sodium 1 GM in 0.9 % Sodium Chloride 50 ML IV (23:23)
[2021-12-27 23:40] LABS: Strep A Nucleic Acid Negative (Negative)
--- NOTE | 2021-12-27 23:45 | PC.NURSE ---
Pt reported being nauseas after getting her IV placed. Zofran was administered and some time was given. Pt was poked again for a lab draw and reported that she felt like she was going to pass out and had to lay down. Labs were unable to be drawn at that time. I spoke to Dr Prieto about the situation and she stated that we do not need the labs at this time and I can start the antibiotics. Pt went to CT scan and came back feeling much better. Fluids and antibiotics are running at this time.
[2021-12-28 00:12] VITALS: BP 139/68; PULSE 99; RESP 22; TEMP 37; O2SAT 98
== END 2021-12-28 00:39 | disposition home or self-care (01) ==
PROVIDERS: Emergency Provider Student in an Organized Health Care Education/Training Program; PCP Nurse Practitioner Family
DX: J18.9 Pneumonia, unspecified organism (principal); R05.9 Cough, unspecified; M79.10 Myalgia, unspecified site; Z20.822 Contact with and (suspected) exposure to COVID-19; Z79.899 Other long term (current) drug therapy
CPT/HCPCS: 0241U; 36415; 71045; 71275; 80048; 81001; 84702; 85025; 85379; 87086; 87635; 87651; 93005; 99285; J0696; J2405; Q9967

== ENCOUNTER → 2022-02-25 13:23 | Outpatient (BNVA) | payer OTHER, SELFPAY | PROVIDERS: PCP Nurse Practitioner Family; Visit Provider Physician Assistant | DX: E66.01 Morbid (severe) obesity due to excess calories (principal) ==

== ENCOUNTER → 2022-03-17 13:45 | Outpatient (BNVA) | payer OTHER, SELFPAY | PROVIDERS: PCP Nurse Practitioner Family; Visit Provider Physician Assistant | DX: E66.9 Obesity, unspecified (principal); Z90.3 Acquired absence of stomach [part of]; E66.01 Morbid (severe) obesity due to excess calories; D75.839 Thrombocytosis, unspecified ==

== ENCOUNTER 2022-03-18 14:02 | Emergency (ER) | payer OTHER, SELFPAY ==
--- NOTE | ~2022-03-18 | XR_ITS ---
EXAMINATION: XR CHEST CLINICAL INFORMATION: Chest pain COMPARISON: Chest radiograph from 12/27/2021 TECHNIQUE: 2 views of the chest were obtained. FINDINGS: No focal consolidation. No pneumothorax. Trachea is midline. Cardiac mediastinal silhouette is not enlarged. No large pleural effusion. Osseous structures are intact. Soft tissues are unremarkable. XR/XR chest 2V IMPRESSION: No acute cardiopulmonary process.
--- NOTE | 2022-03-18 14:19 | ED.CHESTPAIN ---
HPI - Chest Pain General Chief Complaint: Chest Pain <Tessa Cabrales NP - Last Filed: 03/18/22 14:21> Stated Complaint: chest pain <Tessa Cabrales NP - Last Filed: 03/18/22 14:21> Time Seen by Provider: 03/18/22 17:12 <Tessa Cabrales NP - Last Filed: 03/18/22 14:21> Source: patient <SAMMY Roblero - Last Filed: 03/18/22 20:34> Mode of arrival: ambulatory <SAMMY Roblero - Last Filed: 03/18/22 20:34> Limitations: no limitations <SAMMY Roblero - Last Filed: 03/18/22 20:34> History of Present Illness HPI narrative: This is a 37-year-old female history of HTN, obesity, asthma, adjustment disorder, hyperparathyroidism, TISHA on CPAP here with chest pain since this morning. Patient reports that the chest pain is intermittent, substernal in nature, nonradiating, described as stabbing. Patient is unable to tell me what makes the pain better or worse. She denies shortness of breath lower extremity swelling, fevers, chills, upper respiratory symptoms, nausea, vomiting, abdominal pain, headache, vision changes, dizziness. <SAMMY Roblero - Last Filed: 03/18/22 20:34> Related Data Home Medications: Home Medications Medication Instructions Recorded Confirmed fexofenadine 60 mg capsule 180 mg PO DAILY 01/07/21 03/10/22 amlodipine 10 mg tablet 5 mg PO DAILY 10/13/21 03/10/22 Previous Rx's Medication Instructions Recorded albuterol sulfate 90 mcg/actuation 2 puff inhalation Q4-6H PRN 03/07/20 aerosol inhaler (ProAir HFA) shortness of breath or wheezing #8.5 grams cholecalciferol (vitamin D3) 50 50 mcg PO DAILY #30 caps 11/02/21 mcg (2,000 unit) capsule cyanocobalamin (vitamin B-12) 500 500 mcg PO DAILY #30 tabs 11/02/21 mcg tablet fluticasone 250 mcg-salmeterol 50 1 inh inhalation BID 90 days #3 ea 11/13/21 mcg/dose blistr powdr for inhalation montelukast 10 mg tablet 10 mg PO DAILY #90 tabs 11/13/21 l.norgest-eth.estradiol triphasic 1 tab PO DAILY 30 days #30 tabs 02/11/22 50-30 (6)/75-40(5)/125-30(10) tablet olmesartan 20 1 tab PO DAILY 30 days #30 tabs 03/17/22 mg-hydrochlorothiazide 12.5 mg tablet ketorolac 10 mg tablet 10 mg PO TID PRN pain 5 days #15 03/18/22 tabs <Tessa Cabrales NP - Last Filed: 03/18/22 14:21> Allergies/Adverse Reactions: Allergies Allergy/AdvReac Type Severity Reaction Status Date / Time ENVIRONMENTAL Allergy Intermediate RUNNY Uncoded 12/02/21 15:07 NOSE, ASTHMA FLARE UP <Tessa Cabrales NP - Last Filed: 03/18/22 14:21> Review of Systems Review of Systems: Constitutional : No Weight loss, No Fever, No Chills, No Fatigue, No Malaise ENT/Mouth : No sore throat, No Rhinorrhea Eyes: No Eye Pain, No Swelling, No Redness Cardiovascular : + Chest Pain, No SOB, No Dyspnea on Exertion, No Orthopnea, No Edema, No Palpitations Respiratory : No Cough, No Sputum, No Wheezing Gastrointestinal : No Nausea, No Vomiting, No Diarrhea, No Constipation, No abdominal Pain, No Hematochezia, No Melena Genitourinary : No Dysuria, No Urinary Frequency, No Hematuria, Musculoskeletal : No joint pain, No Myalgias, No Joint Swelling Skin : No Skin Lesions, No rash Neuro : No Weakness, No Numbness, No Dizziness, No Headache Psych : No Anxiety/Panic, No Depression All other systems reviewed and are negative <SAMMY Roblero - Last Filed: 03/18/22 20:34> Yes all other systems are reviewed and are negative <SAMMY Roblero - Last Filed: 03/18/22 20:34> PMFSH Past Medical History Medical History: Medical History Allergic rhinitis Asthma Chest pain COPD (chronic obstructive pulmonary disease) COVID-19 Morbid obesity Obesity (BMI 30-39.9) TISHA on CPAP <Tessa Cabrales NP - Last Filed: 03/18/22 14:21> Surgical History: Surgical History History of carpal tunnel surgery History of loop electrical excision procedure (LEEP) <Tessa Cabrales NP - Last Filed: 03/18/22 14:21> Family History Family History: Family History Father HTN (hypertension) Mother HTN (hypertension) <Tessa Cabrales NP - Last Filed: 03/18/22 14:21> Social History Social History: Social History Household Members: None Housing: Apartment Alcohol intake: current Alcohol intake frequency: holidays/special occasions only Patient Tobacco Use Status: Never used Tobacco e-Cigarette/Vaping Use: Never Used Second Hand Smoke Exposure: No Advance Directives: No Patient : No service: No Current occupational status: employed Current occupation: [employer] Current occupational exposures/hazards: No Gender identity: Female Cognitive needs: No Hearing needs: No Vision needs: No <Tessa Cabrales NP - Last Filed: 03/18/22 14:21> Physical Exam Vital Signs: Vital Signs: Last Vital Signs Temp 98.7 F 03/18/22 18:30 Pulse 94 03/18/22 18:30 Resp 14 03/18/22 18:30 BP 128/68 03/18/22 18:30 Pulse Ox 96 03/18/22 18:30 O2 Del Method 03/18/22 18:30 BMI result Body Mass Index 47.3 <Tessa Cabrales NP - Last Filed: 03/18/22 14:21> Vital Signs: Last Vital Signs Temp 98.7 F 03/18/22 18:30 Pulse 94 03/18/22 18:30 Resp 14 03/18/22 18:30 BP 128/68 03/18/22 18:30 Pulse Ox 96 03/18/22 18:30 O2 Del Method 03/18/22 18:30 BMI result Body Mass Index 47.3 vss <SAMMY Roblero - Last Filed: 03/18/22 20:34> Appearance: Alert.? Oriented X3.? No acute distress.? Head: Normocephalic, atraumatic, no step-offs or deformities Eyes: Pupils equal, round and reactive to light.? ENT: Pharynx normal.? Neck: Normal inspection.? Neck supple.? CVS: Rapid rate normal rhythm likely sinus tachycardia.? Pulses normal.? Respiratory: No respiratory distress.? Breath sounds normal.? Abdomen: Soft and nontender.? Skin: Skin warm and dry.? Normal skin color.? Normal skin turgor.? Extremities: No lower extremity edema.? No calf ttp. 5/5 strength to bilateral upper and lower extremities Neuro: Oriented X 3.? No motor deficit.? No sensory deficit. CN 2-12 intact <SAMMY Roblero - Last Filed: 03/18/22 20:34> Course Course Course Narrative: This is a rapid medical exam. Deferred additional HPI, ROS, PE to primary provider. 37 yo female with past medical history of HTN, obesity, asthma, TISHA on CPAP here with chest pain since this morning. No cough, difficulty breathing, cough, fever. Will obtain labs, EKG, CXR. VSS <Tessa Cabrales NP - Last Filed: 03/18/22 14:21> Reevaluation(s) Reevaluation #1: CBC appears to be within normal limits, platelets elevated 557 however this appears to be chronic for patient, chemistry with no acute electrolyte abnormalities requiring intervention. Troponin negative, EKG nonischemic unlikely ACS. Patient COVID negative. Pending D-dimer. <SAMMY Roblero - Last Filed: 03/18/22 20:34> Time: 17:45 <SAMMY Roblero - Last Filed: 03/18/22 20:34> Reevaluation #2: Patient feeling better, reports significant improvement symptoms. Trop negative X2. Dimer negative, unlikley PE . Patient will be DC home w/ cardiology follow up. Educated patient on diagnosis and treatment plan, answered all question, patient verbalizes understanding. At this time patient will be discharged home, advised to return with new or worsening symptoms. Educated on worrisome signs and symptoms and when to return. At this time I feel comfortable discharge home. <SAMMY Roblero - Last Filed: 03/18/22 20:34> Time: 20:33 <SAMMY Roblero - Last Filed: 03/18/22 20:34> Medications Administered Discontinued Medications Generic Name Dose Route Start Last Admin Trade Name Freq PRN Reason Stop Dose Admin Ketorolac Tromethamine 30 mg 03/18/22 17:43 03/18/22 19:35 Ketorolac Tromethamine 15 Mg/Ml Vial IVPUSH 03/18/22 17:44 30 mg ONCE ONE Administration <Tessa Cabrales NP - Last Filed: 03/18/22 14:21> Medications Administered Discontinued Medications Generic Name Dose Route Start Last Admin Trade Name Freq PRN Reason Stop Dose Admin Ketorolac Tromethamine 30 mg 03/18/22 17:43 03/18/22 19:35 Ketorolac Tromethamine 15 Mg/Ml Vial IVPUSH 03/18/22 17:44 30 mg ONCE ONE Administration <SAMMY Roblero - Last Filed: 03/18/22 20:34> Medical Decision Making Medical Decision Making [facility] Narrative: 1725 37-year-old female presents with substernal, nonradiating stabbing chest pain that is intermittent in nature since this morning was advised to come to the emergency department by her PCP for further evaluation. Physical examination with rapid regular rhythm likely sinus tachycardia. Likely noncardiac related chest pain, anxiety. I do not suspect ACS, PE, aortic dissection, endocarditis, pericarditis, myocarditis Plan at this time basic labs, EKG, D-dimer and troponin. <SAMMY Roblero - Last Filed: 03/18/22 20:34> Differential Diagnosis Differential Diagnoses: The differential diagnosis associated with the presentation includes <SAMMY Roblero - Last Filed: 03/18/22 20:34> Likely noncardiac related chest pain, anxiety. I do not suspect ACS, PE, aortic dissection, endocarditis, pericarditis, myocarditis <SAMMY Roblero - Last Filed: 03/18/22 20:34> Admission/Observation Consideration of admission/observation: Escalation of care including admission/observation considered <SAMMY Roblero - Last Filed: 03/18/22 20:34> Unlikely <SAMMY Roblero - Last Filed: 03/18/22 20:34> Lab Data MDM Lab Attestation statement: I reviewed the patient's lab results. <SAMMY Roblero - Last Filed: 03/18/22 20:34> Result Diagrams: 03/18/22 14:54 03/18/22 14:54 <Tessa Cabrales NP - Last Filed: 03/18/22 14:21> Labs: Lab Results 03/18/22 03/18/22 03/18/22 Range/Units 14:54 14:54 14:54 WBC 10.7 (4.8-10.8) X10*3/uL RBC 4.74 (4.20-5.50) X10*6/uL Hgb 13.0 (12.0-16.0) g/dl Hct 41.3 (37.0-47.0) % MCV 87.1 (80.0-98.0) fL MCH 27.4 (27.0-33.0) pg MCHC 31.5 (31.0-35.0) g/dl RDW 15.4 (11.0-16.0) % Plt Count 557 H (160-400) X10*3/uL MPV 9.5 (9.4-12.3) fL Immature Gran % (Auto) 0.3 (0.0-0.4) % Neut % (Auto) 73.5 H (45-73) % Lymph % (Auto) 18.3 L (20-40) % Richardson % (Auto) 5.5 (2-11) % Eos % (Auto) 1.8 (0-4) % Baso % (Auto) 0.6 (0-2) % Lymph # (Auto) 2.0 (1.2-4.9) X10*3/uL Richardson # (Auto) 0.6 (0.1-1.2) X10*3/uL Eos # (Auto) 0.2 (0.0-0.4) X10*3/uL Baso # (Auto) 0.1 (0.0-0.2) X10*3/uL Abs Immat Gran (auto) 0.03 (0.00-0.03) X10*3/uL Absolute Neuts (auto) 7.9 (2.0-8.3) x10*3/uL Absolute Nucleated RBC 0.000 (0.0-0.012) X10*3/uL Nucleated RBC % (auto) 0.0 (0.0-0.2) /100WBC D-Dimer High Sensitivty NG/ML Sodium 139 (135-145) mmol/L Potassium 4.4 (3.3-5.1) mmol/L Chloride 107 (96-108) mmol/L Carbon Dioxide 23 (22-29) mmol/L Anion Gap 13 (12-20) BUN 10 (9-16) mg/dL Creatinine 0.76 (0.5-1.4) mg/dL Estim Creat Clear Calc 135.2 Estimated GFR > 60 Random Glucose 154 H (60-115) mg/dL Calcium 8.9 (8.4-10.2) mg/dL Magnesium 1.9 (1.6-2.6) mg/dL Total Bilirubin 0.3 (0.0-1.0) mg/dL Direct Bilirubin < 0.2 (0.0-0.5) mg/dL AST 19 (5-31) U/L ALT 27 (0-31) U/L Alkaline Phosphatase 72 (39-117) U/L Troponin I High Sens < 3.5 (<3.5-17.0) ng/L Total Protein 6.5 (6.5-8.0) g/dL Albumin 3.9 (3.5-5.0) g/dL COVID-19 (EZ) (Negative) COVID-19 Clin Com 03/18/22 03/18/22 03/18/22 Range/Units 15:05 17:41 17:41 WBC (4.8-10.8) X10*3/uL RBC (4.20-5.50) X10*6/uL Hgb (12.0-16.0) g/dl Hct (37.0-47.0) % MCV (80.0-98.0) fL MCH (27.0-33.0) pg MCHC (31.0-35.0) g/dl RDW (11.0-16.0) % Plt Count (160-400) X10*3/uL MPV (9.4-12.3) fL Immature Gran % (Auto) (0.0-0.4) % Neut % (Auto) (45-73) % Lymph % (Auto) (20-40) % Richardson % (Auto) (2-11) % Eos % (Auto) (0-4) % Baso % (Auto) (0-2) % Lymph # (Auto) (1.2-4.9) X10*3/uL Richardson # (Auto) (0.1-1.2) X10*3/uL Eos # (Auto) (0.0-0.4) X10*3/uL Baso # (Auto) (0.0-0.2) X10*3/uL Abs Immat Gran (auto) (0.00-0.03) X10*3/uL Absolute Neuts (auto) (2.0-8.3) x10*3/uL Absolute Nucleated RBC (0.0-0.012) X10*3/uL Nucleated RBC % (auto) (0.0-0.2) /100WBC D-Dimer High Sensitivty 167 NG/ML Sodium (135-145) mmol/L Potassium (3.3-5.1) mmol/L Chloride (96-108) mmol/L Carbon Dioxide (22-29) mmol/L Anion Gap (12-20) BUN (9-16) mg/dL Creatinine (0.5-1.4) mg/dL Estim Creat Clear Calc Estimated GFR Random Glucose (60-115) mg/dL Calcium (8.4-10.2) mg/dL Magnesium (1.6-2.6) mg/dL Total Bilirubin (0.0-1.0) mg/dL Direct Bilirubin (0.0-0.5) mg/dL AST (5-31) U/L ALT (0-31) U/L Alkaline Phosphatase (39-117) U/L Troponin I High Sens < 3.5 (<3.5-17.0) ng/L Total Protein (6.5-8.0) g/dL Albumin (3.5-5.0) g/dL COVID-19 (EZ) Negative (Negative) COVID-19 Clin Com See Note <Tessa SUDHIR Cabrales - Last Filed: 03/18/22 14:21> Lab Results 03/18/22 03/18/22 03/18/22 Range/Units 14:54 14:54 14:54 WBC 10.7 (4.8-10.8) X10*3/uL RBC 4.74 (4.20-5.50) X10*6/uL Hgb 13.0 (12.0-16.0) g/dl Hct 41.3 (37.0-47.0) % MCV 87.1 (80.0-98.0) fL MCH 27.4 (27.0-33.0) pg MCHC 31.5 (31.0-35.0) g/dl RDW 15.4 (11.0-16.0) % Plt Count 557 H (160-400) X10*3/uL MPV 9.5 (9.4-12.3) fL Immature Gran % (Auto) 0.3 (0.0-0.4) % Neut % (Auto) 73.5 H (45-73) % Lymph % (Auto) 18.3 L (20-40) % Richardson % (Auto) 5.5 (2-11) % Eos % (Auto) 1.8 (0-4) % Baso % (Auto) 0.6 (0-2) % Lymph # (Auto) 2.0 (1.2-4.9) X10*3/uL Richardson # (Auto) 0.6 (0.1-1.2) X10*3/uL Eos # (Auto) 0.2 (0.0-0.4) X10*3/uL Baso # (Auto) 0.1 (0.0-0.2) X10*3/uL Abs Immat Gran (auto) 0.03 (0.00-0.03) X10*3/uL Absolute Neuts (auto) 7.9 (2.0-8.3) x10*3/uL Absolute Nucleated RBC 0.000 (0.0-0.012) X10*3/uL Nucleated RBC % (auto) 0.0 (0.0-0.2) /100WBC D-Dimer High Sensitivty NG/ML Sodium 139 (135-145) mmol/L Potassium 4.4 (3.3-5.1) mmol/L Chloride 107 (96-108) mmol/L Carbon Dioxide 23 (22-29) mmol/L Anion Gap 13 (12-20) BUN 10 (9-16) mg/dL Creatinine 0.76 (0.5-1.4) mg/dL Estim Creat Clear Calc 135.2 Estimated GFR > 60 Random Glucose 154 H (60-115) mg/dL Calcium 8.9 (8.4-10.2) mg/dL Magnesium 1.9 (1.6-2.6) mg/dL Total Bilirubin 0.3 (0.0-1.0) mg/dL Direct Bilirubin < 0.2 (0.0-0.5) mg/dL AST 19 (5-31) U/L ALT 27 (0-31) U/L Alkaline Phosphatase 72 (39-117) U/L Troponin I High Sens < 3.5 (<3.5-17.0) ng/L Total Protein 6.5 (6.5-8.0) g/dL Albumin 3.9 (3.5-5.0) g/dL COVID-19 (EZ) (Negative) COVID-19 Clin Com 03/18/22 03/18/22 03/18/22 Range/Units 15:05 17:41 17:41 WBC (4.8-10.8) X10*3/uL RBC (4.20-5.50) X10*6/uL Hgb (12.0-16.0) g/dl Hct (37.0-47.0) % MCV (80.0-98.0) fL MCH (27.0-33.0) pg MCHC (31.0-35.0) g/dl RDW (11.0-16.0) % Plt Count (160-400) X10*3/uL MPV (9.4-12.3) fL Immature Gran % (Auto) (0.0-0.4) % Neut % (Auto) (45-73) % Lymph % (Auto) (20-40) % Richardson % (Auto) (2-11) % Eos % (Auto) (0-4) % Baso % (Auto) (0-2) % Lymph # (Auto) (1.2-4.9) X10*3/uL Richardson # (Auto) (0.1-1.2) X10*3/uL Eos # (Auto) (0.0-0.4) X10*3/uL Baso # (Auto) (0.0-0.2) X10*3/uL Abs Immat Gran (auto) (0.00-0.03) X10*3/uL Absolute Neuts (auto) (2.0-8.3) x10*3/uL Absolute Nucleated RBC (0.0-0.012) X10*3/uL Nucleated RBC % (auto) (0.0-0.2) /100WBC D-Dimer High Sensitivty 167 NG/ML Sodium (135-145) mmol/L Potassium (3.3-5.1) mmol/L Chloride (96-108) mmol/L Carbon Dioxide (22-29) mmol/L Anion Gap (12-20) BUN (9-16) mg/dL Creatinine (0.5-1.4) mg/dL Estim Creat Clear Calc Estimated GFR Random Glucose (60-115) mg/dL Calcium (8.4-10.2) mg/dL Magnesium (1.6-2.6) mg/dL Total Bilirubin (0.0-1.0) mg/dL Direct Bilirubin (0.0-0.5) mg/dL AST (5-31) U/L ALT (0-31) U/L Alkaline Phosphatase (39-117) U/L Troponin I High Sens < 3.5 (<3.5-17.0) ng/L Total Protein (6.5-8.0) g/dL Albumin (3.5-5.0) g/dL COVID-19 (EZ) Negative (Negative) COVID-19 Clin Com See Note <SAMMY Roblero - Last Filed: 03/18/22 20:34> Independent Interpretation I performed an independent interpretation of an: EKG (EKG with sinus tachycardia heart rate 110, normal TN normal QRS normal QT/QTC. No significant changes when compared to previous. No signs of acute ischemia) <SAMMY Roblero - Last Filed: 03/18/22 20:34> Radiology Impression Discussion of test interpretation with radiology: I have reviewed the radiologist's reading. <SAMMY Roblero - Last Filed: 03/18/22 20:34> Core Measures AMI core measures followed: Yes <SAMMY Roblero - Last Filed: 03/18/22 20:34> Measure exclusions: not indicated <SAMMY Roblero - Last Filed: 03/18/22 20:34> Critical Care Time Critical Care Time Critical Care Time: No <SAMMY Roblero - Last Filed: 03/18/22 20:34> Discharge Plan Discharge Clinical Impression: Chest pain <Tessa Cabrales NP - Last Filed: 03/18/22 14:21> Patient Disposition: Home, Self-Care <Tessa Cabrales NP - Last Filed: 03/18/22 14:21> Instructions: Chest Pain (DC) <Tessa Cabrales NP - Last Filed: 03/18/22 14:21> Additional Instructions: Take your medications as prescribed. If you were prescribed antibiotics today, it is important that you take your medication to their entirety, do not skip any doses, do not finish them early. Follow-up with your primary care provider this week. Follow up with cardiology Return to the emergency department with new or worsening symptoms. Such as fevers, chills, chest pain, shortness of breath, nausea, vomiting, dizziness, headache, vision changes, lethargy In case of emergency call 911 Your laboratory studies, EKG and imaging were all reassuring. Toradol has been sent to your pharmacy, you tolerated this well in the department. Please take this as prescribed do not take this with ibuprofen, or other NSAIDs, do not mix this with alcohol. Side effects of this medication including increased risk for bleeding and possible kidney injury. <Tessa Cabrales NP - Last Filed: 03/18/22 14:21> Prescriptions: New ketorolac 10 mg tablet 10 mg PO TID PRN (Reason: pain) 5 Days Qty: 15 0RF Rx Instructions: Tolerated IM in the department No Action albuterol sulfate [ProAir HFA] 90 mcg/actuation HFA aerosol inhaler 2 puff inhalation Q4-6H PRN (Reason: shortness of breath or wheezing) Qty: 8.5 2RF cyanocobalamin (vitamin B-12) 500 mcg tablet 500 mcg PO DAILY Qty: 30 6RF cholecalciferol (vitamin D3) 50 mcg (2,000 unit) capsule 50 mcg PO DAILY Qty: 30 6RF fluticasone propion-salmeterol 250-50 mcg/dose blister with device 1 inh inhalation BID 90 Days Qty: 3 2RF montelukast 10 mg tablet 10 mg PO DAILY Qty: 90 1RF levonorg-eth estrad triphasic 50-30 (6)/75-40 (5)/125-30(10) tablet 1 tab PO DAILY 30 Days Qty: 30 2RF olmesartan-hydrochlorothiazide 20-12.5 mg tablet 1 tab PO DAILY 30 Days Qty: 30 1RF fexofenadine 60 mg capsule 180 mg PO DAILY amlodipine 10 mg tablet 5 mg PO DAILY <Tessa Cabrales NP - Last Filed: 03/18/22 14:21> Referrals: [facility] Cardiovascular Services [Provider Group] - 2 days <Tessa Cabrales NP - Last Filed: 03/18/22 14:21> Stand Alone Forms: Work/School Release <Tessa Cabrales NP - Last Filed: 03/18/22 14:21>
[2022-03-18 14:20] VITALS: BP 153/81; PULSE 109; RESP 16; TEMP 36.1; O2SAT 96; BMI 47.3
--- NOTE | 2022-03-18 14:21 | ECG_ITS ---
Test Reason : chest pain Blood Pressure : / mmHG Vent. Rate : 110 BPM Atrial Rate : 110 BPM P-R Int : 136 ms QRS Dur : 082 ms QT Int : 334 ms P-R-T Axes : 036 043 018 degrees QTc Int : 452 ms Sinus tachycardia Otherwise normal ECG When compared with ECG of 27-DEC-2021 11:35, No significant change was found Referred By: Tessa Cabrales Electronically Signed By:BUSHRA MILLER
[2022-03-18 15:03] LABS: MANUAL DIFF FLAG NO
[2022-03-18 15:07] LABS: Basophils Absolute Auto 0.1 X10*3/uL (0.0-0.2); Basophils Percent Auto 0.6 % (0-2); Eosinophils Absolute Auto 0.2 X10*3/uL (0.0-0.4); Eosinophils Percent Auto 1.8 % (0-4); Hematocrit 41.3 % (37.0-47.0); Imm Gran Abs Auto 0.03 X10*3/uL (0.00-0.03); Imm Gran Pct Auto 0.3 % (0.0-0.4); Lymphocytes Percent Auto 18.3 % (20-40); Mean Corpuscular HGB Conc 31.5 g/dl (31.0-35.0); Mean Corpuscular Hemoglobin 27.4 pg (27.0-33.0); Mean Corpuscular Volume 87.1 fL (80.0-98.0); Mean Platelet Volume 9.5 fL (9.4-12.3); Monocytes Absolute Auto 0.6 X10*3/uL (0.1-1.2); Monocytes Percent Auto 5.5 % (2-11); Neutrophils Absolute Auto 7.9 x10*3/uL (2.0-8.3); Neutrophils Percent Auto 73.5 % (45-73); Platelet Count 557 X10*3/uL (160-400); Red Blood Count 4.74 X10*6/uL (4.20-5.50); Red Cell Distribution Width 15.4 % (11.0-16.0); White Blood Count 10.7 X10*3/uL (4.8-10.8)
[2022-03-18 15:23] LABS: COVID-19 Test Negative (Negative); IDNOW Serial# 6674DD1D
[2022-03-18 15:26] LABS: Alanine Aminotransferase 27 U/L (0-31); Albumin Level 3.9 g/dL (3.5-5.0); Alkaline Phosphatase 72 U/L (39-117); Anion Gap 13 (12-20); Aspartate Amino Transferase 19 U/L (5-31); Bilirubin Direct < 0.2 mg/dL (0.0-0.5); Bilirubin Total 0.3 mg/dL (0.0-1.0); Blood Urea Nitrogen 10 mg/dL (9-16); Calcium 8.9 mg/dL (8.4-10.2); Carbon Dioxide 23 mmol/L (22-29); Chloride 107 mmol/L (96-108); Creatinine Clr Calc Pharmacy 135.2; Estimated Glomerular Filt Rate > 60; Glucose Random 154 mg/dL (60-115); Magnesium 1.9 mg/dL (1.6-2.6); Potassium 4.4 mmol/L (3.3-5.1); Sodium 139 mmol/L (135-145); Total Protein 6.5 g/dL (6.5-8.0)
[2022-03-18 15:49] LABS: Troponin-I High Sensitivity < 3.5 ng/L (<3.5-17.0)
[2022-03-18 18:03] LABS: D Dimer High Sensitivity 167 NG/ML
[2022-03-18 18:20] LABS: Troponin-I High Sensitivity < 3.5 ng/L (<3.5-17.0)
[2022-03-18 18:30] VITALS: BP 128/68; PULSE 94; RESP 14; TEMP 37.1; O2SAT 96
--- NOTE | 2022-03-18 19:20 | PC.NURSE ---
assumed care of patient reading book while resting quietly per SRUTHI Parks, pt refused IV line and ketorolac IV push has not been administered will confirm with pt that she still desires not to have IV line established
[2022-03-18] MEDS: Ketorolac Tromethamine 15 MG/ML VIAL 30 MG IVPUSH (19:35)
--- NOTE | 2022-03-18 19:36 | PC.NURSE ---
IV line est in L AC 20g 2mL ketorolac IV push administered pt pain level 8/10 (chest)
--- NOTE | 2022-03-18 20:44 | PC.NURSE ---
Discharge instructions given/explained, no sob- able to speak in full sentences; no respiratory distress, ambulates safely/independently; IV cath tip intact upon removal; all of patient's questions answered
== END 2022-03-18 20:36 | disposition home or self-care (01) ==
PROVIDERS: Nurse Practitioner Family; Physician Assistant; Emergency Provider Emergency Medicine; PCP Nurse Practitioner Family
DX: R07.89 Other chest pain (principal); I10 Essential (primary) hypertension; G47.33 Obstructive sleep apnea (adult) (pediatric); Z79.899 Other long term (current) drug therapy; Z20.828 Contact with and (suspected) exposure to other viral communicable diseases; Z20.822 Contact with and (suspected) exposure to COVID-19
CPT/HCPCS: 36415; 71046; 80048; 80076; 83735; 84484; 85025; 85379; 87635; 93005; 96374; 99284; 99285; J1885

== ENCOUNTER 2022-03-29 09:34 | Outpatient (REF) | payer OTHER, SELFPAY ==
[2022-03-29 12:06] LABS: Cholesterol 179 mg/dL; HDL Cholesterol 65 mg/dL; LDL Cholesterol Calculated 93 mg/dl; Triglycerides 106 mg/dL
[2022-03-29 12:29] LABS: Vitamin D 25-OH Total 43.7 ng/mL (>30)
[2022-03-30 15:08] LABS: Calcium (PTHI) 9.4 mg/dL (8.6-10.2); PTHI 104 pg/mL (16-77)
== END 2022-03-29 09:35 | disposition home or self-care (01) ==
LOC: HO.LAB 09:34
PROVIDERS: PCP Nurse Practitioner Family; Visit Provider Physician Assistant
DX: E66.01 Morbid (severe) obesity due to excess calories (principal); R01.1 Cardiac murmur, unspecified; G47.33 Obstructive sleep apnea (adult) (pediatric); D75.839 Thrombocytosis, unspecified; Z71.3 Dietary counseling and surveillance; Z79.899 Other long term (current) drug therapy; Z90.3 Acquired absence of stomach [part of]
CPT/HCPCS: 36415; 80061; 82306; 83970

== ENCOUNTER → 2022-04-06 14:08 | Outpatient (BNVA) | payer OTHER, SELFPAY | PROVIDERS: PCP Nurse Practitioner Family; Visit Provider Internal Medicine | DX: R07.9 Chest pain, unspecified (principal); I10 Essential (primary) hypertension; E66.01 Morbid (severe) obesity due to excess calories; G47.33 Obstructive sleep apnea (adult) (pediatric); Z99.89 Dependence on other enabling machines and devices; Z68.42 Body mass index [BMI] 45.0-49.9, adult | CPT/HCPCS: 93005 ==

== ENCOUNTER 2022-04-13 14:07 | Outpatient (REF) | payer OTHER, SELFPAY ==
[2022-04-13 15:11] LABS: Anion Gap 11 (12-20); Blood Urea Nitrogen 18 mg/dL (9-16); Calcium 9.5 mg/dL (8.4-10.2); Carbon Dioxide 28 mmol/L (22-29); Chloride 103 mmol/L (96-108); Estimated Glomerular Filt Rate > 60; Glucose Random 94 mg/dL (60-115); Potassium 4.7 mmol/L (3.3-5.1); Sodium 137 mmol/L (135-145)
[2022-04-13 15:22] LABS: Vitamin D 25-OH Total 40.1 ng/mL (>30)
[2022-04-14 10:03] LABS: PTHI 56 pg/mL (16-77)
[2022-04-14 13:44] LABS: Thyroid Peroxidase Antibodies <1 IU/mL (<9)
[2022-04-15 14:53] LABS: Calcium, Ionized 5.1 mg/dL (4.8-5.6)
== END 2022-04-13 14:08 | disposition home or self-care (01) ==
LOC: HO.LAB 14:07
PROVIDERS: PCP Nurse Practitioner Family; Visit Provider Nurse Practitioner Family
DX: E34.9 Endocrine disorder, unspecified (principal); R07.9 Chest pain, unspecified; R94.6 Abnormal results of thyroid function studies
CPT/HCPCS: 36415; 80048; 82306; 82330; 83970; 84443; 86376

== ENCOUNTER 2022-05-12 13:47 | Outpatient (REF) | payer OTHER, SELFPAY ==
[2022-05-12 14:02] LABS: MANUAL DIFF FLAG NO
[2022-05-12 16:08] LABS: Basophils Absolute Auto 0.1 X10*3/uL (0.0-0.2); Basophils Percent Auto 0.6 % (0-2); Eosinophils Absolute Auto 0.3 X10*3/uL (0.0-0.4); Eosinophils Percent Auto 2.2 % (0-4); Hematocrit 40.2 % (37.0-47.0); Hemoglobin 12.9 g/dl (12.0-16.0); Imm Gran Abs Auto 0.06 X10*3/uL (0.00-0.03); Imm Gran Pct Auto 0.5 % (0.0-0.4); Lymphocytes Absolute Auto 2.7 X10*3/uL (1.2-4.9); Lymphocytes Percent Auto 21.6 % (20-40); Mean Corpuscular HGB Conc 32.1 g/dl (31.0-35.0); Mean Corpuscular Hemoglobin 28.4 pg (27.0-33.0); Mean Corpuscular Volume 88.4 fL (80.0-98.0); Mean Platelet Volume 9.4 fL (9.4-12.3); Monocytes Absolute Auto 0.9 X10*3/uL (0.1-1.2); Monocytes Percent Auto 6.7 % (2-11); Neutrophils Absolute Auto 8.7 x10*3/uL (2.0-8.3); Neutrophils Percent Auto 68.4 % (45-73); Platelet Count 574 X10*3/uL (160-400); Red Blood Count 4.55 X10*6/uL (4.20-5.50); Red Cell Distribution Width 14.5 % (11.0-16.0); White Blood Count 12.7 X10*3/uL (4.8-10.8)
== END 2022-05-12 13:48 | disposition home or self-care (01) ==
LOC: HO.LAB 13:47
PROVIDERS: PCP Nurse Practitioner Family; Referring Provider Internal Medicine; Visit Provider Nurse Practitioner Family
DX: D75.839 Thrombocytosis, unspecified (principal)
CPT/HCPCS: 36415; 85025

== ENCOUNTER 2022-06-24 09:01 | Outpatient (REF) | payer OTHER, SELFPAY ==
[2022-06-24 09:20] LABS: MANUAL DIFF FLAG NO
[2022-06-24 09:51] LABS: Basophils Absolute Auto 0.1 X10*3/uL (0.0-0.2); Basophils Percent Auto 0.5 % (0-2); Eosinophils Absolute Auto 0.2 X10*3/uL (0.0-0.4); Eosinophils Percent Auto 2.2 % (0-4); Hematocrit 39.6 % (37.0-47.0); Hemoglobin 12.8 g/dl (12.0-16.0); Imm Gran Abs Auto 0.04 X10*3/uL (0.00-0.03); Imm Gran Pct Auto 0.4 % (0.0-0.4); Lymphocytes Absolute Auto 2.3 X10*3/uL (1.2-4.9); Lymphocytes Percent Auto 24.6 % (20-40); Mean Corpuscular HGB Conc 32.3 g/dl (31.0-35.0); Mean Corpuscular Hemoglobin 28.8 pg (27.0-33.0); Mean Corpuscular Volume 89.2 fL (80.0-98.0); Mean Platelet Volume 9.4 fL (9.4-12.3); Monocytes Absolute Auto 0.6 X10*3/uL (0.1-1.2); Neutrophils Percent Auto 65.3 % (45-73); Platelet Count 551 X10*3/uL (160-400); Red Blood Count 4.44 X10*6/uL (4.20-5.50); Red Cell Distribution Width 14.1 % (11.0-16.0); White Blood Count 9.1 X10*3/uL (4.8-10.8)
[2022-06-24 10:01] LABS: Appearance Urine Clear; Color Urine Yellow; Glucose Urine UA Negative (Negative); Leukocyte Esterase Urine Moderate (2+) (Negative); Nitrite Urine Negative (Negative); PH 7.5 (5.0-9.0); Specific Gravity - Urine 1.025 (1.005-1.025); UMIC TRIGGER UACC YES; Urine Blood Negative (Negative); Urine Ketones Negative (Negative); Urine Protein Negative (Neg-Trace)
[2022-06-24 10:06] LABS: Bacteria Urine Trace (None Seen); Hyaline Casts Urine 0-2 /LPF (0-2); RBC Urine 0-2 /HPF (0-2); Squamous Epithelial Cell Urine 0-2 /HPF (0-2); UACC Culture Trigger YES; WBC Urine 21-50 /HPF (0-5)
[2022-06-24 10:27] LABS: Alanine Aminotransferase 18 U/L (0-31); Albumin Level 4.1 g/dL (3.5-5.0); Alkaline Phosphatase 58 U/L (39-117); Anion Gap 13 (12-20); Aspartate Amino Transferase 14 U/L (5-31); Bilirubin Total 0.3 mg/dL (0.0-1.0); Blood Urea Nitrogen 18 mg/dL (9-16); Calcium 9.6 mg/dL (8.4-10.2); Carbon Dioxide 26 mmol/L (22-29); Chloride 105 mmol/L (96-108); Cholesterol 210 mg/dL; Estimated Glomerular Filt Rate > 60; Glucose Fasting 112 mg/dL (60-99); HDL Cholesterol 52 mg/dL; LDL Cholesterol Calculated 128 mg/dl; Potassium 4.9 mmol/L (3.3-5.1); Sodium 139 mmol/L (135-145); Total Protein 6.7 g/dL (6.5-8.0); Triglycerides 154 mg/dL
[2022-06-24 10:47] LABS: TSH reflex Free T4 2.91 uIU/mL (0.32-4.0)
== END 2022-06-24 09:02 | disposition home or self-care (01) ==
LOC: HO.LAB 09:01
PROVIDERS: PCP Nurse Practitioner Family; Visit Provider Nurse Practitioner Family
DX: Z00.00 Encounter for general adult medical examination without abnormal findings (principal); R82.90 Unspecified abnormal findings in urine; Z20.2 Contact with and (suspected) exposure to infections with a predominantly sexual mode of transmission; I10 Essential (primary) hypertension; R94.6 Abnormal results of thyroid function studies; K76.0 Fatty (change of) liver, not elsewhere classified
CPT/HCPCS: 36415; 80053; 80061; 81001; 81003; 84443; 85025; 87086

== ENCOUNTER → 2022-06-28 13:23 | Outpatient (BNVA) | payer OTHER, SELFPAY | PROVIDERS: PCP Nurse Practitioner Family; Visit Provider Physician Assistant | DX: E66.01 Morbid (severe) obesity due to excess calories (principal) ==

== ENCOUNTER → 2022-07-29 14:02 | Outpatient (BNVA) | payer OTHER, SELFPAY | PROVIDERS: PCP Nurse Practitioner Family; Referring Provider Nurse Practitioner Family; Visit Provider Internal Medicine ==

== ENCOUNTER 2022-08-30 13:00 | Outpatient (AMB) | payer OTHER, SELFPAY ==
--- NOTE | 2022-08-30 12:54 | MHC.OFFVISWM ---
Intake VS Expanded 08/30/22 12:55 Height 5 ft 4 in Weight 278 lb 6 oz BMI 47.8 Intake Visit Reasons: VIDEO F/U SWL Allergies ENVIRONMENTAL Allergy (Intermediate, Uncoded 07/29/22 14:29) RUNNY NOSE, ASTHMA FLARE UP Medication List - Last Reconciled 08/30/22 by Caryn Garibay PA-C albuterol sulfate 90 mcg/actuation (ProAir HFA) 2 puffs inhalation Q4-6H PRN amlodipine 5 mg PO DAILY betamethasone dipropionate 0.05% 1 appl topical DAILY PRN cholecalciferol (vitamin D3) (Vitamin D3) 50 mcg PO DAILY cyanocobalamin (vitamin B-12) 500 mcg PO DAILY fexofenadine (Chasidy Allergy) 180 mg PO DAILY fluticasone propion-salmeterol 250-50 mcg/dose 1 inh inhalation BID 90 days fluticasone propionate 50 mcg/actuation (Allergy Relief (fluticasone)) 2 sprays intranasal DAILY levonorg-eth estrad triphasic 50-30 (6)/75-40 (5)/125-30(10) 1 tab PO DAILY 30 days montelukast 10 mg PO DAILY olmesartan-hydrochlorothiazide 20-12.5 mg 1 tab PO DAILY 90 days HPI HPI Comments History of Present Illness Details 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 All preoperatvie work up has been completed including cardiology clearance, low risk. Pt is feeling frustrated. Meal plan; 8:30 - Body Central shake 12pm - yougrt may have fresh berries with it 3:30 - Body Central shake 6:30 pm- grilled chicken or ground turkey with raw vegetables Exercise - M- F, over the last 2 weeks, 30 minutes PFS Medical History Allergic rhinitis Asthma Chest pain COPD (chronic obstructive pulmonary disease) COVID-19 Morbid obesity Obesity (BMI 30-39.9) TISHA on CPAP Surgical History History of carpal tunnel surgery History of loop electrical excision procedure (LEEP) Family History Father HTN (hypertension) Mother HTN (hypertension) Social History Household Members: None Housing: Apartment Alcohol intake: current Alcohol intake frequency: holidays/special occasions only Patient Tobacco Use Status: Never used Tobacco e-Cigarette/Vaping Use: Never Used Second Hand Smoke Exposure: No service: No Current occupational status: employed Current occupation: [employer] Current occupational exposures/hazards: No Gender identity: Female Cognitive needs: No Hearing needs: No Vision needs: No Assessment & Plan Assessment & Plan (1) Morbid obesity: Code(s): E66.01 - Morbid (severe) obesity due to excess calories Plan: Pt has lost 19.8 lbs or 6.6% and pre op work up is completed. She had to stop for a while due to cardiac symptoms - but is now cleared and considered low risk. No changes to meal plan. Will change her exercise plan now and see what progress she has over the next week or two, can change to bars and shakes only if needed. Exercise - TBP every other day, alternating with her other 30 minute videos. Will text me next week, appt in 3 weeks. Patient is still morbidly obese and is not considered stable at this time. I spent 25 minutes in total speaking with the patient via video conference counseling , reviewing records and charting in patients chart. . Telehealth Telehealth Location of provider rendering services: practice address Location of patient: address on file Patient Identification confirmed using: Name, : Yes Telehealth method: video Patient verbally consented to treatment: Yes Patient verbally consented to billing insurance company: Yes Patient informed of any privacy concerns related to visit: Yes Coding Level of Care Code Tele Est Pt Level 4 (71625) Diagnoses Morbid obesity E66.01
[2022-08-30 12:55] VITALS: BMI 47.8
== END 2022-08-30 13:28 | disposition home or self-care (01) ==
LOC: HO.HBS 13:26
PROVIDERS: PCP Nurse Practitioner Family; Visit Provider Physician Assistant
DX: E66.01 Morbid (severe) obesity due to excess calories (principal); Z68.42 Body mass index [BMI] 45.0-49.9, adult
CPT/HCPCS: 99214

== ENCOUNTER → 2022-08-30 13:00 | Outpatient (BNVA) | payer OTHER, SELFPAY | PROVIDERS: PCP Nurse Practitioner Family; Visit Provider Physician Assistant ==

== ENCOUNTER 2022-09-08 13:23 | Outpatient (AMB) | payer OTHER, SELFPAY ==
[2022-09-08 13:25] VITALS: BP 140/78; PULSE 108; O2SAT 98; BMI 47.7
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
== END 2022-09-08 13:42 | disposition home or self-care (01) ==
PROVIDERS: PCP Nurse Practitioner Family; Visit Provider Nurse Practitioner Family
DX: J45.909 Unspecified asthma, uncomplicated (principal)
CPT/HCPCS: 99213

== ENCOUNTER → 2022-09-08 13:23 | Outpatient (BNVA) | payer OTHER, SELFPAY | PROVIDERS: PCP Nurse Practitioner Family; Visit Provider Nurse Practitioner Family ==

== ENCOUNTER 2022-09-15 11:04 | Outpatient (REF) | payer OTHER, SELFPAY ==
--- NOTE | ~2022-09-15 | XR_ITS ---
EXAMINATION: XR CHEST CLINICAL INFORMATION: Reason for Exam R07.81 - Pleurodynia COMPARISON: Chest radiograph 03/18/2022 TECHNIQUE: 2 views of the chest FINDINGS: Lines and tubes: None. Streaky right lower lung airspace opacities likely reflecting atelectasis. No pleural effusion. No pneumothorax. Normal cardiomediastinal silhouette. XR/XR chest 2V IMPRESSION: Streaky right lower lung airspace opacities likely reflecting atelectasis.
== END 2022-09-15 11:05 | disposition home or self-care (01) ==
LOC: HO.XRAY 11:04
PROVIDERS: PCP Nurse Practitioner Family; Visit Provider Nurse Practitioner Family
DX: R07.81 Pleurodynia (principal); J45.909 Unspecified asthma, uncomplicated; G47.33 Obstructive sleep apnea (adult) (pediatric); Z99.89 Dependence on other enabling machines and devices
CPT/HCPCS: 71046; 94640

== ENCOUNTER 2022-09-15 11:04 | Outpatient (AMB) | payer OTHER, SELFPAY ==
[2022-09-15 11:09] VITALS: BP 130/80; PULSE 114; O2SAT 96; BMI 48.1
--- NOTE | 2022-09-15 11:09 | A.OFFVIS_ITS ---
Intake Vital Signs 09/15/22 11:09 Height 5 ft 4 in Weight 279 lb 15.793 oz BMI 48.1 BP 130/80 Blood Pressure Location Lt brachial Position Sitting Pulse 114 H Pulse Source Pulse Oximeter Pulse Oximetry (%) 96 Oxygen Delivery Method Room Air Intake Visit Reasons: Shortness of breath Back Up Worker Required: No Health Care Specialist: Health Care Specialist offered & declined Allergies ENVIRONMENTAL Allergy (Intermediate, Uncoded 09/15/22 11:14) RUNNY NOSE, ASTHMA FLARE UP Medication List - Last Reconciled 09/15/22 by Autumn Hall LPN albuterol sulfate 90 mcg/actuation (ProAir HFA) 2 puffs inhalation Q4-6H PRN amlodipine 5 mg PO DAILY betamethasone dipropionate 0.05% 1 appl topical DAILY PRN cholecalciferol (vitamin D3) (Vitamin D3) 50 mcg PO DAILY cyanocobalamin (vitamin B-12) 500 mcg PO DAILY fexofenadine (Wendy Allergy) 180 mg PO DAILY fluticasone propion-salmeterol 250-50 mcg/dose 1 inh inhalation BID 90 days fluticasone propionate 50 mcg/actuation (Allergy Relief (fluticasone)) 2 sprays intranasal DAILY PRN levonorg-eth estrad triphasic 50-30 (6)/75-40 (5)/125-30(10) 1 tab PO DAILY 30 days montelukast 10 mg PO DAILY olmesartan-hydrochlorothiazide 20-12.5 mg 1 tab PO DAILY 90 days prednisone 10 mg PO DIRECTED prednisone 40 mg (2 x 20 mg) PO DAILY HPI Shortness of breath HPI Details Kellie is a pleasant 37 year old female with underlying asthma and TISHA on CPAP. At baseline symptoms are well controlled on advair, singulair, albuterol MDI wendy. Today she presents for an acute visit. She was seen on 09/08/22 with increased chest tightness and dry cough after being exposed to poor air quality with [employer]. She was given a 5 day course of prednisone and had significant relief in symptoms. This past two days she reports feeling almost back to baseline and woke this morning with similar symptoms of chest tightness and cough. She reports symptoms today feel worse than prior exacerbation and did not get any relief with her albuterol this morning. She also reported waking up gasping for air despite using her CPAP reguarly. [facility] Medical History Allergic rhinitis Asthma Chest pain COPD (chronic obstructive pulmonary disease) COVID-19 Morbid obesity Obesity (BMI 30-39.9) TISHA on CPAP Surgical History History of carpal tunnel surgery History of loop electrical excision procedure (LEEP) Family History Father HTN (hypertension) Mother HTN (hypertension) Social History Household Members: None Housing: Apartment Alcohol intake: current Alcohol intake frequency: holidays/special occasions only Patient Tobacco Use Status: Never used Tobacco e-Cigarette/Vaping Use: Never Used Second Hand Smoke Exposure: No service: No Current occupational status: employed Current occupation: [employer] Current occupational exposures/hazards: No Gender identity: Female Cognitive needs: No Hearing needs: No Vision needs: No Review of Systems Const Denies chills, Denies excessive sweating, Denies fever(s), Denies headache(s) and Denies night sweats Eyes Denies dry eyes, Denies irritation and Denies itchy eyes ENT Reports Normal hearing present, Denies headache(s), Denies nasal congestion, Denies nasal discharge, Denies post nasal drip and Denies sore throat Card Denies chest pain, Denies chest pain at rest, Denies chest pain with activity, Denies claudication, Denies leg edema, Denies dyspnea, Denies orthopnea and Denies paroxysmal nocturnal dyspnea Resp Denies chest congestion, Denies excessive phlegm production, Denies pain on inspiration, Denies pain with cough, Denies dyspnea, Denies stridor and Denies wheezing Musc Denies myalgias Neuro Reports Normal hearing present and Denies headache(s) Endo Denies excessive sweating Melo/Lymph Denies lymphadenopathy Aller/Immun Denies itchy eyes, Denies seasonal rhinorrhea and Denies wheezing Physical Exam Vital Signs: Last Vital Signs Pulse 114 H 09/15/22 11:09 BP 130/80 09/15/22 11:09 Pulse Ox 96 09/15/22 11:09 Oxygen Delivery Method Room Air 09/15/22 11:09 BMI result Body Mass Index 48.1 Const General: cooperative, healthy appearing, comfortable, no acute distress, well developed and alert Nutritional Appearance: obese Orientation/consciousness: patient oriented x3 Limitations: no limitations HEENT Head: Yes normal to inspection, Yes normocephalic and Yes atraumatic Ears: hearing grossly normal bilaterally and external ears normal Eyes General: appearance normal, both eyes and all related structures Eyelids: Yes eyelids normal Sclerae: sclerae normal EOM: EOMs intact bilaterally Neck Neck: Yes normal visual inspection and Yes no lymphadenopathy Lymphatic: no lymphadenopathy noted Chest Chest palpation & inspection: normal inspection of the chest Resp Other: post exhalation cough, diminished lung sounds bilaterally, improved after duoneb Effort & Inspection: normal respiratory effort, able to speak in complete sentences, no audible wheezes, no stridor, not tachypneic, no tripod positioning and no use of accessory muscles Cardio Jugular venous distension: no JVD Rate: regular rate Rhythm: regular rhythm Skin Other: warm, dry General skin exam: no rashes or lesions noted Neuro General: patient oriented x3 Cranial nerves: Yes Normal hearing present Cognition (Neuro): normal cognition Gait exam (Neuro): Normal gait present Extrem General: Yes normal to inspection, Yes capillary refill normal, Yes no clubbing, cyanosis or edema and Yes no pedal edema Psych Appearance: grossly normal and well kempt Speech and movement: Normal speech and movement present and Clear speech present Affect: normal affect Attitude: cooperative Thought process: Normal thought process present Thought content: Normal thought content present Insight: Good insight present (Psych) Judgement: Good judgement present (Psych) Office Procedures Nebulizer Treatment Nebulizer Treatment 27003-[id number]/MDI RX initial, or Nebulizer Subsequent Treatment Office Meds ipratropium-albuterol 0.5 mg-3 mg(2.5 mg base)/3 mL Performing Provider: Candelaria Randolph NP Administered by: Autumn Hall LPN on 09/15/22 11:30 Dose Route Admin Location Lot Number Expiration Date 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 On exam she did have post exhalation cough and diminished lung sounds, both improved after duoneb treatment in office. Patient stated she also felt it was easier to take a deep breath after nebulizer. Will send in an extended prednisone taper and duoneb. She was also reporting pleurtic pain, will send for CXR. She is aware if symptoms worsen to seek emergent care and to call the office if she does not have improvements. All questions were answered and patient is in agreement of plan. Orders: Orders XR chest 2V 09/15/22 R07.81 - Pleurodynia AMB Nebulizer Treatment 09/15/22 J45.909 - Unspecified asthma, uncomplicated Medications: New prednisone see taper instructions; 40 mg Daily for three days, 30 mg daily for three days, 20 mg daily for three days, 10 mg daily for three days 10 mg PO DIRECTED 30 tabs 0RF ipratropium-albuterol 0.5 mg-3 mg(2.5 mg base)/3 mL 3 mL inhalation Q6H PRN 180 mL 0RF wheezing Coding Level of Care Code Est Pt Level 4 (13459) Diagnoses Asthma J45.909 TISHA on CPAP G47.33; Z99.89 Pleuritic chest pain R07.81 CPT Codes Nebulizer Treatment - Nebulizer Treatment, initial or subsequent: 08562- Nebulizer/MDI RX initial, or Nebulizer Subsequent Treatment ([id number])
== END 2022-09-15 13:47 | disposition home or self-care (01) ==
PROVIDERS: PCP Nurse Practitioner Family; Visit Provider Nurse Practitioner Family
DX: J45.909 Unspecified asthma, uncomplicated (principal)
CPT/HCPCS: 99214

== ENCOUNTER 2022-10-01 13:07 | Outpatient (AMB) | payer OTHER, SELFPAY ==
--- NOTE | 2022-10-01 13:08 | MHC.OFFVISWM ---
Intake VS Expanded 10/01/22 13:10 Height 5 ft 4 in Weight 279 lb 9.6 oz BMI 48.0 BP 165/86 H Blood Pressure Location Rt brachial Blood Pressure Position Sitting Pulse 110 H Pulse Source Pulse Oximeter Temp 98.4 F Temperature Source Temporal Artery Scan Pulse Oximetry 97 Body Fat 132.2 Body Fat Percentage 47.3 Free Fat Mass 147.2 Muscle Mass 139.8 Visceral Mass 15 Water Mass 105.6 BMR 2,113 Intake Visit Reasons: (OV) F/U SWL Manager Database Required: No Accompanied by: Self / Same As Patient Allergies ENVIRONMENTAL Allergy (Intermediate, Uncoded 10/01/22 13:09) RUNNY NOSE, ASTHMA FLARE UP Medication List - Last Reconciled 10/01/22 by Caryn Garibay PA-C albuterol sulfate 90 mcg/actuation (ProAir HFA) 2 puffs inhalation Q4-6H PRN albuterol sulfate 2.5 mg (3 mL) inhalation Q4-6H PRN amlodipine 5 mg PO DAILY azithromycin For 250 mg dose pack: take 500 mg today (day 1), then 250 mg for 4 days (days 2-5) PO betamethasone dipropionate 0.05% 1 appl topical DAILY PRN cholecalciferol (vitamin D3) (Vitamin D3) 50 mcg PO DAILY cyanocobalamin (vitamin B-12) 500 mcg PO DAILY fexofenadine (Chasidy Allergy) 180 mg PO DAILY fluticasone propion-salmeterol 250-50 mcg/dose 1 inh inhalation BID 90 days fluticasone propionate 50 mcg/actuation (Allergy Relief (fluticasone)) 2 sprays intranasal DAILY PRN ipratropium bromide 2.5 mL inhalation Q6H PRN ipratropium-albuterol 0.5 mg-3 mg(2.5 mg base)/3 mL 3 mL inhalation Q6H PRN levonorg-eth estrad triphasic 50-30 (6)/75-40 (5)/125-30(10) 1 tab PO DAILY 30 days montelukast 10 mg PO DAILY olmesartan-hydrochlorothiazide 20-12.5 mg 1 tab PO DAILY 90 days HPI HPI Comments History of Present Illness Details SWL follow up -now on abx URI, just finished prednisone for asthma exacerbation. Exercise- none for about 3 weeks due to asthma. Meal plan - sometimes misses s MR due ot lung congestion. typical routine: 8:30 fairlife shake 12 pm - yogurt - sometimes adds 1/2 c blueberries 3pm - second shake 6:30 - 6 oz chicken mostly and green vegetables - will measure in forkfuls - 12 each [facility] Medical History Allergic rhinitis Asthma Chest pain COPD (chronic obstructive pulmonary disease) COVID-19 Morbid obesity Obesity (BMI 30-39.9) TISHA on CPAP Surgical History History of carpal tunnel surgery History of loop electrical excision procedure (LEEP) Family History Father HTN (hypertension) Mother HTN (hypertension) Social History Household Members: None Housing: Apartment Alcohol intake: current Alcohol intake frequency: holidays/special occasions only Patient Tobacco Use Status: Never used Tobacco e-Cigarette/Vaping Use: Never Used Second Hand Smoke Exposure: No service: No Current occupational status: employed Current occupation: [employer] Current occupational exposures/hazards: No Gender identity: Female Cognitive needs: No Hearing needs: No Vision needs: No Physical Exam Vital Signs: Last Vital Signs Temp 98.4 F 10/01/22 13:10 Pulse 110 H 10/01/22 13:10 BP 165/86 H 10/01/22 13:10 Pulse Ox 97 10/01/22 13:10 BMI result Body Mass Index 48.0 Assessment & Plan Assessment & Plan (1) Morbid obesity: Code(s): E66.01 - Morbid (severe) obesity due to excess calories Plan: SWL patient in our program since Oct 2021, with 19.6 or 6.6% TBWL. She has completed all pre operative work up but has not been able to exercise regularly due to lety exacerbations, frequent URI's and cardiac work up. Visceral fat rating of 15. No changes to meal plan Exercise - she will continue to try to walk at least 30 minutes daily now and will increase again once her lung conditiion improves. I have asked Dr Aguilar for a surgical consultation for her. She will take her BP at home, it was high today as she was rushing to get to her appt. Encouraged her to continue with weekly texts. Next appt with me in 3 weeks. Patient is morbidly obese and is not considered stable at this time. I spent 30minutes in total with patient reviewing/updating records, examining the patient and counseling the patient on weight management as detailed above. (2) COPD (chronic obstructive pulmonary disease): Code(s): J44.9 - Chronic obstructive pulmonary disease, unspecified (3) TISHA on CPAP: Code(s): G47.33 - Obstructive sleep apnea (adult) (pediatric); Z99.89 - Dependence on other enabling machines and devices (4) HTN (hypertension): Code(s): I10 - Essential (primary) hypertension (5) Fatty liver: Code(s): K76.0 - Fatty (change of) liver, not elsewhere classified Coding Level of Care Code Est Pt Level 4 (12663) Diagnoses Morbid obesity E66.01 COPD (chronic obstructive pulmonary disease) J44.9 TISHA on CPAP G47.33; Z99.89 HTN (hypertension) I10 Fatty liver K76.0
[2022-10-01 13:10] VITALS: BP 165/86; PULSE 110; TEMP 36.9; O2SAT 97; BMI 48.0
== END 2022-10-01 13:42 | disposition home or self-care (01) ==
PROVIDERS: PCP Nurse Practitioner Family; Visit Provider Physician Assistant
DX: E66.01 Morbid (severe) obesity due to excess calories (principal); J44.9 Chronic obstructive pulmonary disease, unspecified; G47.33 Obstructive sleep apnea (adult) (pediatric); Z99.89 Dependence on other enabling machines and devices; I10 Essential (primary) hypertension; K76.0 Fatty (change of) liver, not elsewhere classified
CPT/HCPCS: 99214

== ENCOUNTER → 2022-10-01 13:07 | Outpatient (BNVA) | payer OTHER, SELFPAY | PROVIDERS: PCP Nurse Practitioner Family; Visit Provider Physician Assistant ==

== ENCOUNTER 2022-10-18 08:00 | Outpatient (AMB) | payer OTHER, SELFPAY ==
--- NOTE | 2022-10-18 08:38 | A.OFFVIS_ITS ---
Intake VS Expanded 10/18/22 09:01 Height 5 ft 4 in Weight 279 lb 8 oz BMI 48.0 Body Fat 142.9 Body Fat Percentage 51.1 Free Fat Mass 136.8 Visceral Mass 16 Water Mass 97.9 BMR 1,878 Intake Visit Reasons: TV Consult/Transfer Caryn Allergies ENVIRONMENTAL Allergy (Intermediate, Uncoded 10/18/22 08:38) RUNNY NOSE, ASTHMA FLARE UP Medication List - Last Reconciled 10/18/22 by Mikal Love MD albuterol sulfate 90 mcg/actuation (ProAir HFA) 2 puffs inhalation Q4-6H PRN albuterol sulfate 2.5 mg (3 mL) inhalation Q4-6H PRN amlodipine 5 mg PO DAILY amoxicillin-pot clavulanate 875-125 mg 1 tab PO Q12H azithromycin For 250 mg dose pack: take 500 mg today (day 1), then 250 mg for 4 days (days 2-5) PO betamethasone dipropionate 0.05% 1 appl topical DAILY PRN cholecalciferol (vitamin D3) (Vitamin D3) 50 mcg PO DAILY cyanocobalamin (vitamin B-12) 500 mcg PO DAILY fexofenadine (Chasidy Allergy) 180 mg PO DAILY fluticasone propion-salmeterol 250-50 mcg/dose 1 inh inhalation BID 90 days fluticasone propionate 50 mcg/actuation (Allergy Relief (fluticasone)) 2 sprays intranasal DAILY PRN ipratropium bromide 2.5 mL inhalation Q6H PRN ipratropium-albuterol 0.5 mg-3 mg(2.5 mg base)/3 mL 3 mL inhalation Q6H PRN levonorg-eth estrad triphasic 50-30 (6)/75-40 (5)/125-30(10) 1 tab PO DAILY 30 days montelukast 10 mg PO DAILY olmesartan-hydrochlorothiazide 20-12.5 mg 1 tab PO DAILY 90 days HPI TV Consult/Transfer Caryn HPI Details Start time: 8.15am, End time: 9.15am ?I spent 15 minutes speaking with the patient on the phone plus an additional 5 minutes reviewing and updating records for a total of 20 minutes HPI Comments History of Present Illness Details Overall weight loss: 18.6lbs, or 6.23% TBWL Is doing two Powerphotonickes, one Chinese yogurt or a Quest protein bar and a meal (6oz meat with 6oz vegetables, estimating) Snacks: none Exercise: 2 mile in-house exercise video daily [facility] Medical History Allergic rhinitis Asthma Chest pain COPD (chronic obstructive pulmonary disease) COVID-19 Morbid obesity Obesity (BMI 30-39.9) TISHA on CPAP Surgical History History of carpal tunnel surgery History of loop electrical excision procedure (LEEP) Family History Father HTN (hypertension) Mother HTN (hypertension) Social History Household Members: None Housing: Apartment Alcohol intake: current Alcohol intake frequency: holidays/special occasions only Patient Tobacco Use Status: Never used Tobacco e-Cigarette/Vaping Use: Never Used Second Hand Smoke Exposure: No service: No Current occupational status: employed Current occupation: [employer] Current occupational exposures/hazards: No Gender identity: Female Cognitive needs: No Hearing needs: No Vision needs: No Physical Exam Vital Signs: BMI result Body Mass Index 48.0 Assessment & Plan Assessment & Plan (1) Morbid obesity: Code(s): E66.01 - Morbid (severe) obesity due to excess calories Plan: 1. Plan for lap sleeve gastrectomy. If diaphragmatic or ventral hernias are present at time of surgery, these will be repaired laparoscopically as well. Risks and complications were discussed in detail including possible conversion to an open procedure, anastomotic leak, bleeding requiring transfusion, small bowel obstruction, , DVT and pulmonary embolism, cardiac, or pulmonary complications, as terminal block assembler complications such as anastomotic ulcer, insufficient weight loss and vitamin deficiencies. I emphasized the importance of close follow-up, adherence to instructions and good communication. 2. Please change nutritional plan to 2 Isopure INFUSION protein shakes (HALF scoop EACH in 8oz cold water) at 8am-10am and 11am-1pm, one Zone Perfect protein bar, one meal (10 forks of protein and 10 forks of salad or vegetables) and 2 more Zone Perfect protein bars at 7pm-9pm and 9pm-11pm. 3. Increase home video exercises to 4 miles per day 4. Purchase a stationary bike, elliptical or treadmill at home that can track calories. Let me know if you do so I can give you an exercise plan. 5. Send me weight measurements weekly on Fridays (2) Fatty liver: Code(s): K76.0 - Fatty (change of) liver, not elsewhere classified (3) HTN (hypertension): Code(s): I10 - Essential (primary) hypertension (4) Thrombocytosis: Code(s): D75.839 - Thrombocytosis, unspecified (5) TISHA on CPAP: Code(s): G47.33 - Obstructive sleep apnea (adult) (pediatric); Z99.89 - Dependence on other enabling machines and devices (6) COPD (chronic obstructive pulmonary disease): Code(s): J44.9 - Chronic obstructive pulmonary disease, unspecified (7) Asthma: Code(s): J45.909 - Unspecified asthma, uncomplicated Telehealth Telehealth Location of provider rendering services: practice address Location of patient: address on file Patient Identification confirmed using: Name, : Yes Telehealth method: voice only Patient verbally consented to treatment: Yes Patient verbally consented to billing insurance company: Yes Patient informed of any privacy concerns related to visit: Yes Minutes spent on Phone/Video with Pt.: 60 Coding Level of Care Code Tele Est Pt Level 5 (09035) Diagnoses Morbid obesity E66.01 Fatty liver K76.0 HTN (hypertension) I10 Thrombocytosis D75.839 TISHA on CPAP G47.33; Z99.89 COPD (chronic obstructive pulmonary disease) J44.9 Asthma J45.909 Time Spent (min) 60
[2022-10-18 09:01] VITALS: BMI 48.0
== END 2022-10-18 09:41 | disposition home or self-care (01) ==
LOC: HO.HBS 08:00
PROVIDERS: PCP Nurse Practitioner Family; Visit Provider Surgery
DX: E66.01 Morbid (severe) obesity due to excess calories (principal); Z68.42 Body mass index [BMI] 45.0-49.9, adult; K76.0 Fatty (change of) liver, not elsewhere classified; I10 Essential (primary) hypertension
CPT/HCPCS: 99443

== ENCOUNTER → 2022-10-18 08:00 | Outpatient (BNVA) | payer OTHER, SELFPAY | PROVIDERS: PCP Nurse Practitioner Family; Visit Provider Surgery ==

== ENCOUNTER 2022-11-02 15:25 | Outpatient (AMB) | payer OTHER, SELFPAY ==
--- NOTE | 2022-11-02 15:27 | A.OFFVIS_ITS ---
Intake Vital Signs 11/02/22 15:28 Height 5 ft 4 in Weight 280 lb BMI 48.1 BP 120/80 Intake Visit Reasons: Annual/DO NOT RS Laboratory Specialist Required: No Information Interpreted: non-clinical & clinical Magnetizer: Magnetizer Present (Karen) Allergies ENVIRONMENTAL Allergy (Intermediate, Uncoded 11/02/22 15:31) RUNNY NOSE, ASTHMA FLARE UP Is last menstrual period known: No Post menopausal: No HPI HPI Comments History of Present Illness Details Presenting for annual exam. No complaints. Last Pap/HPV was in 07/11 was negative [facility] Medical History Chest pain Morbid obesity Asthma COVID-19 COPD (chronic obstructive pulmonary disease) Allergic rhinitis TISHA on CPAP Obesity (BMI 30-39.9) Surgical History History of loop electrical excision procedure (LEEP) History of carpal tunnel surgery Family History Father HTN (hypertension) Mother HTN (hypertension) Maternal Grandmother Breast cancer Social History Household Members: None Housing: Apartment Alcohol intake: current Alcohol intake frequency: holidays/special occasions only Patient Tobacco Use Status: Never used Tobacco e-Cigarette/Vaping Use: Never Used Second Hand Smoke Exposure: No service: No Current occupational status: employed Current occupation: [employer] Current occupational exposures/hazards: No Gender identity: Female Cognitive needs: No Hearing needs: No Vision needs: No Female Reproductive History Menstrual Age of Menarche: 17 Duration of menses: 3-5 days control method: pills Total pregnancies: 0 Date of last pap smear: 06/26/20 (negative) History of abnormal pap smear: Yes Review of Systems Const All systems reviewed & are unremarkable except as noted in HPI and below Card Reports as per HPI Resp Reports as per HPI GI Reports as per HPI and Reports no additional complaints Reports as per HPI Physical Exam Vital Signs: Last Vital Signs BP 120/80 11/02/22 15:28 BMI result Body Mass Index 48.1 Const General: cooperative, healthy appearing and comfortable Chest Chest palpation & inspection: normal inspection of the chest and normal palpation of entire chest wall Breast/axilla inspection: normal inspection of the breasts and normal inspection of the axillae Breast/axilla palpation: normal palpation of the breasts, normal palpation of the axillae and no axillary lymphadenopathy Resp Effort & Inspection: normal respiratory effort Auscultation: clear to auscultation bilaterally Percussion: percussion normal Cardio Palpation: normal PMI Rate: regular rate Rhythm: regular rhythm Heart sounds: no murmurs and no rubs Peripheral pulses: Peripheral pulses 2+ throughout GI Inspection: Yes normal to inspection Palpation (GI): Soft to palpation, nontender, no guarding, not rigid and No hepatosplenomegaly present Percussion: Yes normal to percussion Auscultation: normal bowel sounds Rectal Exam - Female: deferred General: Yes bladder normal to palpation External Female Exam: No lesion Speculum Exam - Vagina: normal appearance of the vagina, normal palpation, normal vaginal discharge and not erythematous Speculum Exam - Cervix: normal appearance of the cervix and normal palpation Bimanual exam- vagina & uterus: normal bimanual exam, normal palpation, uterine size normal, bladder normal to palpation, consistency normal and normal palpation Bimanual Exam- Adnexa, other: normal adnexae, no masses and no tenderness Assessment & Plan Assessment & Plan (1) Well woman exam: Code(s): Z01.419 - Encounter for gynecological examination (general) (routine) without abnormal findings Plan: Cotesting not indicated this year. Counseled the patient about the recommended dietary allowance of 1000 mg of Calcium & 600 IU of vitamin D. The patient was instructed to perform monthly self-breast exams and to schedule an annual exam in a year; All questions answered and the patient verbalized understanding. Instructed the patient to schedule annual exam in a year Coding Level of Care Code Est Pt Prev Care 18-39y(27470) Diagnoses Well woman exam Z01.419
[2022-11-02 15:28] VITALS: BP 120/80; BMI 48.1
== END 2022-11-02 16:01 | disposition home or self-care (01) ==
PROVIDERS: Visit Provider Obstetrics & Gynecology
DX: Z01.419 Encounter for gynecological examination (general) (routine) without abnormal findings (principal)
CPT/HCPCS: 99395

== ENCOUNTER → 2022-11-02 15:25 | Outpatient (BNVA) | payer OTHER, SELFPAY | PROVIDERS: Visit Provider Obstetrics & Gynecology ==

== ENCOUNTER 2022-11-02 15:52 | Outpatient (AMB) | payer OTHER, SELFPAY ==
[2022-11-02 16:02] VITALS: BP 124/80; PULSE 120; O2SAT 97; BMI 48.1
--- NOTE | 2022-11-02 16:02 | MHC.OFFVIS ---
Intake Vital Signs 11/02/22 16:02 Height 5 ft 4 in Weight 279 lb 15.793 oz BMI 48.1 BP 124/80 Blood Pressure Location Lt brachial Position Sitting Pulse 120 H Pulse Source Pulse Oximeter Pulse Oximetry (%) 97 Oxygen Delivery Method Room Air Intake Visit Reasons: asthma Intake Note: pt is here for follow up and states cpap is doing well, asthma is stable. Geothermal Operations Manager Required: No Allergies ENVIRONMENTAL Allergy (Intermediate, Uncoded 11/02/22 15:31) RUNNY NOSE, ASTHMA FLARE UP Medication List - Last Reconciled 11/02/22 by Lisa Wilde MD albuterol sulfate 90 mcg/actuation (ProAir HFA) 2 puffs inhalation Q4-6H PRN albuterol sulfate 2.5 mg (3 mL) inhalation Q4-6H PRN amlodipine 5 mg PO DAILY azithromycin For 250 mg dose pack: take 500 mg today (day 1), then 250 mg for 4 days (days 2-5) PO betamethasone dipropionate 0.05% 1 appl topical DAILY PRN cholecalciferol (vitamin D3) (Vitamin D3) 50 mcg PO DAILY cyanocobalamin (vitamin B-12) 500 mcg PO DAILY fexofenadine (Chasidy Allergy) 180 mg PO DAILY fluticasone propion-salmeterol 250-50 mcg/dose 1 inh inhalation BID 90 days fluticasone propionate 50 mcg/actuation (Allergy Relief (fluticasone)) 2 sprays intranasal DAILY PRN ipratropium bromide 2.5 mL inhalation Q6H PRN ipratropium-albuterol 0.5 mg-3 mg(2.5 mg base)/3 mL 3 mL inhalation Q6H PRN levonorg-eth estrad triphasic 50-30 (6)/75-40 (5)/125-30(10) 1 tab PO DAILY 30 days montelukast 10 mg PO DAILY olmesartan-hydrochlorothiazide 20-12.5 mg 1 tab PO DAILY 90 days Do you need a note to return to daycare/school/sports/work: No HPI asthma HPI Details This 37 years old morbidly obese and very pleasant female, is for her routine follow-up for the bronchial asthma and obstructive sleep apnea. She uses CPAP very regularly and sleeps good for at least 8-9 hours per night. She does have intermittent nasal congestion, which is controlled. With medications She is in weight management program and has lost some weight. She is on a strict diet and waiting to undergo bariatric surgery. Denies any problems with the CPAP device. Breathing remains well controlled as long as she uses Advair 250-51 inhalation b.i.d. ipratropium/albuterol solution only p.r.n.. Her allergy symptoms are controlled with use of montelukast, PFSH Medical History Chest pain Morbid obesity Asthma COVID-19 COPD (chronic obstructive pulmonary disease) Allergic rhinitis TISHA on CPAP Obesity (BMI 30-39.9) Surgical History History of loop electrical excision procedure (LEEP) History of carpal tunnel surgery Family History Father HTN (hypertension) Mother HTN (hypertension) Maternal Grandmother Breast cancer Social History Household Members: None Housing: Apartment Alcohol intake: current Alcohol intake frequency: holidays/special occasions only Patient Tobacco Use Status: Never used Tobacco e-Cigarette/Vaping Use: Never Used Second Hand Smoke Exposure: No service: No Current occupational status: employed Current occupation: [employer] Current occupational exposures/hazards: No Gender identity: Female Cognitive needs: No Hearing needs: No Vision needs: No Female Reproductive History Menstrual Age of Menarche: 17 Review of Systems Const All systems reviewed & are unremarkable except as noted in HPI and below Eyes Reports no additional complaints ENT Reports no additional complaints Card Reports chest pain (It is more like muscular, discomfort across the anterior chest), Denies irregular heart rhythm and Denies leg edema Resp Details: She has her usual mild intermittent cough with some wheezing Reports cough (mild) and Reports wheezing (only occasional ) GI Reports no additional complaints Reports no additional complaints Musc Reports no additional complaints Skin/Breast Reports system reviewed and no additional complaints, except as documented Psych Reports no additional complaints Aller/Immun Reports wheezing (only occasional ) Physical Exam Vital Signs: Last Vital Signs Pulse 120 H 11/02/22 16:02 BP 124/80 11/02/22 16:02 Pulse Ox 97 11/02/22 16:02 Oxygen Delivery Method Room Air 11/02/22 16:02 BMI result Body Mass Index 48.1 Const General: comfortable, no acute distress, alert and awake Orientation/consciousness: patient oriented x3 HEENT Head: Yes normal to inspection General nose exam: No nasal polyps present and No nasal discharge present Face and sinus: Yes sinuses nontender Mouth: oropharynx normal Throat: Yes posterior oropharynx normal Eyes General: appearance normal, both eyes and all related structures Neck Neck: Yes normal visual inspection, Yes no lymphadenopathy, Yes trachea midline and Yes no JVD Thyroid: Thyroid normal Chest Chest palpation & inspection: normal inspection of the chest, normal palpation of entire chest wall and tenderness (Minimal, nonspecific, tenderness over the anterior chest.) Resp Other: Breath sounds are distant as usual. She does not have any active wheezing crepitations or pleural rub. Cardio Palpation: normal PMI Rate: regular rate Rhythm: regular rhythm Heart sounds: no gallops and no murmurs Peripheral pulses: Peripheral pulses 2+ throughout GI Palpation (GI): Soft to palpation, nontender, No hepatosplenomegaly present and no masses Auscultation: normal bowel sounds Back/Spine/Pelvis Thoracic/Lumbar Spine: thoracic and lumbar spine normal to inspection Skin General skin exam: no rashes or lesions noted Neuro General: patient oriented x3 and no focal motor deficits Cranial nerves: Yes CN's II-XII intact bilaterally Extrem General: Yes normal to inspection, Yes no clubbing, cyanosis or edema and Yes no calf tenderness Psych Appearance: grossly normal and well kempt Speech and movement: Normal speech and movement present Results Reviewed Results Reviewed: Compliance report for the last 30 nights is reviewed. Her usage has been 97%, missed only 1 night when she had her nephew and niece home. Average use it per night 9 hours 16 minutes. Pressure used mostly 13 cm. There is a slight leak, maximum 77. Residual AHI only 0.7 Assessment & Plan Assessment & Plan (1) TISHA on CPAP: Comment: Patient is a very regular user of CPAP. . CPAP is well treated Commended for good compliance and encouraged to keep on using CPAP regularly , pressure setting is 6-16 cm. . Uses fullface mask Code(s): G47.33 - Obstructive sleep apnea (adult) (pediatric); Z99.89 - Dependence on other enabling machines and devices (2) Allergic rhinitis: Comment: Chronic , controlled with meds . TX: CONT. SINGULAIR 10 MG DAILY / and Fexofenadine 180 mg per day as needed Code(s): J30.9 - Allergic rhinitis, unspecified (3) COPD (chronic obstructive pulmonary disease): Comment: She has combination of bronchial asthma/COPD. Remains well controlled with the use of Advair 250-51 inhalation b.i.d.. And use of ipratropium -albuterol solution in the nebulizer Q 4-6 hours p.r.n. Code(s): J44.9 - Chronic obstructive pulmonary disease, unspecified (4) Morbid obesity: Comment: Patient currently in weight management program. Code(s): E66.01 - Morbid (severe) obesity due to excess calories Coding Level of Care Code Est Pt Level 3 (79044) Diagnoses TISHA on CPAP G47.33; Z99.89 Allergic rhinitis J30.9 COPD (chronic obstructive pulmonary disease) J44.9 Morbid obesity E66.01
== END 2022-11-02 16:15 | disposition home or self-care (01) ==
PROVIDERS: PCP Nurse Practitioner Family; Visit Provider Internal Medicine
DX: G47.33 Obstructive sleep apnea (adult) (pediatric) (principal); Z99.89 Dependence on other enabling machines and devices; J30.9 Allergic rhinitis, unspecified; J44.9 Chronic obstructive pulmonary disease, unspecified; E66.01 Morbid (severe) obesity due to excess calories
CPT/HCPCS: 99213

== ENCOUNTER 2022-11-08 08:42 | Outpatient (AMB) | payer OTHER, SELFPAY ==
--- NOTE | 2022-11-08 10:27 | MHC.OFFVISWM ---
Intake Intake Visit Reasons: TV Pre Op LSG 11/16/22 Allergies ENVIRONMENTAL Allergy (Intermediate, Uncoded 11/08/22 10:27) RUNNY NOSE, ASTHMA FLARE UP Medication List - Last Reconciled 11/08/22 by Mikal Love MD albuterol sulfate 90 mcg/actuation (ProAir HFA) 2 puffs inhalation Q4-6H PRN albuterol sulfate 2.5 mg (3 mL) inhalation Q4-6H PRN amlodipine 5 mg PO DAILY betamethasone dipropionate 0.05% 1 appl topical DAILY PRN cholecalciferol (vitamin D3) (Vitamin D3) 50 mcg PO DAILY cyanocobalamin (vitamin B-12) 500 mcg PO DAILY fexofenadine (Chasidy Allergy) 180 mg PO DAILY fluticasone propion-salmeterol 250-50 mcg/dose 1 inh inhalation BID 90 days fluticasone propionate 50 mcg/actuation (Allergy Relief (fluticasone)) 2 sprays intranasal DAILY PRN ipratropium bromide 2.5 mL inhalation Q6H PRN ipratropium-albuterol 0.5 mg-3 mg(2.5 mg base)/3 mL 3 mL inhalation Q6H PRN levonorg-eth estrad triphasic 50-30 (6)/75-40 (5)/125-30(10) 1 tab PO DAILY 30 days montelukast 10 mg PO DAILY olmesartan-hydrochlorothiazide 20-12.5 mg 1 tab PO DAILY 90 days ondansetron 4 mg PO Q12H pantoprazole 40 mg PO DAILY polyethylene glycol 3350 (Miralax) 17 grams PO DAILY sucralfate 10 mL PO BID HPI TV Pre Op LSG 11/16/22 HPI Details Start time: 10.21am, End time: 10.51am ?I spent 25 minutes speaking with the patient on the phone plus an additional 5 minutes reviewing and updating records for a total of 30 minutes HPI Comments History of Present Illness Details Overall weight loss: 23.2lbs, or 7.77% TBWL Is doing 2 Isopure protein shakes (1 scoop each in water), 2 Zone Perfect protein bars and one meal (10 forks of protein and 10 forks of salad or vegetables) Exercise: is doing home exercise videos [facility] Medical History Chest pain Morbid obesity Asthma COVID-19 COPD (chronic obstructive pulmonary disease) Allergic rhinitis TISHA on CPAP Obesity (BMI 30-39.9) Surgical History History of loop electrical excision procedure (LEEP) History of carpal tunnel surgery Family History Father HTN (hypertension) Mother HTN (hypertension) Maternal Grandmother Breast cancer Social History Household Members: None Housing: Apartment Alcohol intake: current Alcohol intake frequency: holidays/special occasions only Patient Tobacco Use Status: Never used Tobacco e-Cigarette/Vaping Use: Never Used Second Hand Smoke Exposure: No service: No Current occupational status: employed Current occupation: [employer] Current occupational exposures/hazards: No Gender identity: Female Cognitive needs: No Hearing needs: No Vision needs: No Female Reproductive History Menstrual Age of Menarche: 17 Assessment & Plan Assessment & Plan (1) Morbid obesity: Comment: Patient currently in weight management program. Code(s): E66.01 - Morbid (severe) obesity due to excess calories Plan: 1. Plan for lap sleeve gastrectomy including upper GI endoscopy. All tests has been completed and reviewed and the patient is cleared for the surgery. ?If diaphragmatic or ventral hernias are present at time of surgery, these will be repaired laparoscopically as well. Risks and complications were discussed in detail including possible conversion to an open procedure, anastomotic leak, bleeding requiring transfusion, small bowel obstruction, , DVT and pulmonary embolism, cardiac, or pulmonary complications, as penitentiary complications such as anastomotic ulcer, insufficient weight loss and vitamin deficiencies. I emphasized the importance of close follow-up, adherence to instructions and good communication. So far she has proven to be an excellent communicator and very compliant with all our directions accomplishing a great weight loss. I believe that she is an excellent candidate and she is ready. 2. Preop prescriptions were provided and explained the purpose of each one. Need to be purchased preop. Start Pantoprazole now as you get it from the pharmacy, 1 pill per day. Sucralfate and Zofran are for after surgery as needed. 3. Bowel prep: please do 7 packets ?of Miralax mixing each one with a an 8oz glass of water, crystal light, gatorade zero, or propel ?on 11/14/22 and the same amount on 11/15/22. Continue the protein shakes during? the bowel prep. 4. Needs to purchase 1oz medicine cups . 5. Needs to purchase Children's liquid Tylenol for postop pain control. 6. She needs to stop the control pill as of today. Avoid aspirin, motrin, Advil, Aleve, Ibuprofen, Naproxyn. Tylenol is OK. 7. She needs to purchase the Celebrate 4:1 protein shakes from the hospital's gift shop. 8. Will do basic preop blood work-up any day between Tuesday11/09/22 and Tuesday11/12/22 fasting for 12 hours and is scheduled to see the Anesthesiologist prior to the day of surgery. 9. Importance of adherence to postop folllow-up and recommendations was underscored and she understands that. 10. Stop food and bars as of tomorrow 11/09/22 and continue with one Ispure protein shake (HALF scoop in 8oz water) at 9am-11am, and FOUR more Isopure protein shakes with ONE scoop in 8oz of water at 12pm-2pm, 3pm-5pm, 6pm-8pm and 9pm-11pm 11. No soups, broths or V8 12. The patient's?medical?history has been reviewed and they are considered low risk for post op DVT and therefore DVT prophylaxis is not considered necessary. Travel after surgery was reviewed. The patient has not disclosed any travel plans during the first 30 days after surgery and they have been advised that within the first 30 days after surgery any bus, plane, train or car travel over 2 hours in duration is contraindicated due to the possibility of developing blood clots from immobility. Any travel, needs to include periods of ambulation of 10 minutes in duration every 2 hours.? Patient was instructed to discuss any plans for travel during this period with their bariatric surgeon.? 13. Use your CPAP daily and bring it to the hospital with your mask 14. Please take at the day of surgery the following medications: AMLODIPINE AND LOSARTAN/HYDROCHLROTHIAZIDE. Please check your blood pressure daily and let me know if it drops below 120/70. 15. Stop any control pills and don't use them for one month after surgery 16. Absolutely no smoking or vaping, or marijuana until the surgery and for at least the first 4 weeks. Only nicotine patches are allowed. 17. Send me weight measurements on and then next Tuesday on the day of surgery before you go to the hospital. 18. Avoid any steroids by mouth for any reason. Let me know if someone prescribes them to you (2) HTN (hypertension): Code(s): I10 - Essential (primary) hypertension Orders: Orders TSH reflex Free T4 Today E66.01 - Morbid (severe) obesity due to excess calories, I10 - Essential (primary) hypertension, R79.89 - Other specified abnormal findings of blood chemistry Partial Thromboplastin Time Today E66.01 - Morbid (severe) obesity due to excess calories, I10 - Essential (primary) hypertension, R79.89 - Other specified abnormal findings of blood chemistry C Reactive Protein Today E66.01 - Morbid (severe) obesity due to excess calories, I10 - Essential (primary) hypertension, R79.89 - Other specified abnormal findings of blood chemistry Lipid Panel Today E66.01 - Morbid (severe) obesity due to excess calories, I10 - Essential (primary) hypertension, R79.89 - Other specified abnormal findings of blood chemistry Hemoglobin A1c Today E66.01 - Morbid (severe) obesity due to excess calories, I10 - Essential (primary) hypertension, R79.89 - Other specified abnormal findings of blood chemistry Insulin Today E66.01 - Morbid (severe) obesity due to excess calories, I10 - Essential (primary) hypertension, R79.89 - Other specified abnormal findings of blood chemistry Comprehensive Met. Panel Today E66.01 - Morbid (severe) obesity due to excess calories, I10 - Essential (primary) hypertension, R79.89 - Other specified abnormal findings of blood chemistry Prothrombin Time INR Today E66.01 - Morbid (severe) obesity due to excess calories, I10 - Essential (primary) hypertension, R79.89 - Other specified abnormal findings of blood chemistry Type and Screen Today E66.01 - Morbid (severe) obesity due to excess calories, I10 - Essential (primary) hypertension, R79.89 - Other specified abnormal findings of blood chemistry Medications: New pantoprazole 40 mg PO DAILY 30 tabs 2RF K21.9 - Gastro-esophageal reflux disease without esophagitis sucralfate 10 mL PO BID 400 mL 2RF K21.9 - Gastro-esophageal reflux disease without esophagitis polyethylene glycol 3350 (Miralax) Mix each packet with 8oz of water, Crystal light, or Gatorade zero, or Propel and do 7 packets on 11/14/22 and another 7 packets on 11/15/22 17 grams PO DAILY 14 ea 0RF Z01.818 - Encounter for other preprocedural examination ondansetron 4 mg PO Q12H 20 tabs 0RF nausea and vomiting R11.0 - Nausea Telehealth Telehealth Location of provider rendering services: practice address Location of patient: address on file Patient Identification confirmed using: Name, : Yes Telehealth method: voice only Patient verbally consented to treatment: Yes Patient verbally consented to billing insurance company: Yes Patient informed of any privacy concerns related to visit: Yes Minutes spent on Phone/Video with Pt.: 30 Coding Level of Care Code Tele Est Pt Level 4 (19524) Diagnoses Morbid obesity E66.01 HTN (hypertension) I10 Time Spent (min) 30
== END 2022-11-08 10:52 | disposition home or self-care (01) ==
PROVIDERS: PCP Nurse Practitioner Family; Visit Provider Surgery
DX: E66.01 Morbid (severe) obesity due to excess calories (principal); I10 Essential (primary) hypertension
CPT/HCPCS: 99499

== ENCOUNTER → 2022-11-08 08:42 | Outpatient (BNVA) | payer OTHER, SELFPAY | PROVIDERS: PCP Nurse Practitioner Family; Visit Provider Surgery ==

== ENCOUNTER 2022-11-16 10:33 | Inpatient (IN) | payer OTHER, SELFPAY ==
[2022-11-10 08:57] LABS: Estimated Average Glucose 100 mg/dL; Hemoglobin A1c % 5.1 % (<6.0)
[2022-11-10 09:02] LABS: INTERNATIONAL NORM RATIO 0.9 (0.9-1.1)
[2022-11-10 09:05] LABS: Partial Thromboplastin Time 32.8 SEC (26.0-36.4)
[2022-11-10 10:25] LABS: Alanine Aminotransferase 32 U/L (0-31); Albumin Level 4.4 g/dL (3.5-5.0); Alkaline Phosphatase 68 U/L (39-117); Anion Gap 15 (12-20); Aspartate Amino Transferase 23 U/L (5-31); Bilirubin Total 0.5 mg/dL (0.0-1.0); Blood Urea Nitrogen 16 mg/dL (9-16); C Reactive Protein 2.43 mg/dL (< or = 0.50); Calcium 9.7 mg/dL (8.4-10.2); Carbon Dioxide 25 mmol/L (22-29); Chloride 105 mmol/L (96-108); Cholesterol 211 mg/dL (<200); Estimated Glomerular Filt Rate > 60; Glucose Random 98 mg/dL (60-115); HDL Cholesterol 57 mg/dL (>40); LDL Cholesterol Calculated 111 mg/dL (<100); Potassium 3.5 mmol/L (3.3-5.1); Sodium 141 mmol/L (135-145); Total Protein 7.1 g/dL (6.5-8.0); Triglycerides 216 mg/dL (<150)
[2022-11-10 10:48] LABS: Insulin 9 uU/mL (2-29); TSH reflex Free T4 2.78 uIU/mL (0.32-4.0)
--- NOTE | 2022-11-10 23:39 | MHC.SHP ---
Pre-Procedural Eval Section A Date of Service: 11/10/22 The patient is an INPATIENT: Yes The History & Physical has been completed within 30 days and I have reviewed it.: Yes Section B Chief Complaint: Morbid (severe) obesity due to excess calories Relevant Family History (Specify if Yes): No Relevant Social History: None Present Medications: None Medical History: No relevant PMH History of Previous Operations: No relevant previous surgery Allergies: Allergies Allergy/AdvReac Type Severity Reaction Status Date / Time ENVIRONMENTAL Allergy Intermediate RUNNY Uncoded 11/08/22 10:27 NOSE, ASTHMA FLARE UP Review of Systems Sugical H&P ROS: Negative: Constitution, Cardiovascular, Respiratory, Neurological, Psychiatric, Hem-Onc, Allergic/Immunologic, Gastrointestinal, Genitourinary, Musculoskeletal, Integumentary, Endocrine and Eyes/Ears/Nose/Throat Exam Surgical H&P Exam: Normal: HEENT, Normal: Heart, Normal: Lungs, Normal: Extremities, Normal: Abdomen, Normal: Skin and Normal: Neurological Plan Diagnosis/Plan: Unchanged I have reviewed the history and physical and performed a pertinent physical examination on my patient. No changes have occurred unless specified. Time Spent With Patient Time: Total time managing care of this patient today ____ minutes.
[2022-11-11 11:31] VITALS: BMI 46.7
--- NOTE | 2022-11-15 09:19 | HO.ANESPROP2 ---
Documented by User: Belen Holguin NP 11/15/22 09:20 HPI - Anesthesia Eval Consult details Narrative: 37yo F for Gastrectomy Sleeve,EGD,poss diaphragmatic hernia,poss ventral hernia,poss open, Cardiac optimized PMFSH Active Problems Active Problems: All Active Problems (Updated 11/11/22 @ 11:15 by Jenelle Barajas RN) Pleuritic chest pain (Acute) Preoperative cardiovascular examination (Acute) Elevated TSH (Acute) Elevated parathyroid hormone (Acute) Fatty liver (Acute) Adjustment disorder, unspecified (Acute) Thrombocytosis (Chronic) HTN (hypertension) (Acute) Systolic murmur (Acute) Elevated parathyroid hormone (Acute) Pre-op evaluation (Acute) Morbid obesity (Acute) Physical exam (Acute) Well woman exam (Acute) Chest pain (Acute) Morbid obesity (Acute) Asthma (Acute) COVID-19 (Acute) COPD (chronic obstructive pulmonary disease) (Acute) Allergic rhinitis (Acute) TISHA on CPAP (Acute) Obesity (BMI 30-39.9) (Acute) Past Medical History Medical History Fatty liver Anxiety Murmur HTN (hypertension) Chest pain Morbid obesity Asthma COVID-19 COPD (chronic obstructive pulmonary disease) Allergic rhinitis TISHA on CPAP Obesity (BMI 30-39.9) Family History Family History Father HTN (hypertension) Mother HTN (hypertension) Maternal Grandmother Breast cancer Surgical History Surgical History Hx of sinus surgery History of loop electrical excision procedure (LEEP) History of carpal tunnel surgery Social History Social History Household Members: None Housing: Apartment Are you a primary care coordination manager to a significant other at home: No Do you presently have visiting nurse or other home services: No Alcohol intake: current Alcohol intake frequency: does not drink Patient Tobacco Use Status: Never used Tobacco e-Cigarette/Vaping Use: Never Used Second Hand Smoke Exposure: No Use of substances other than those prescribed or required for medical reasons: No Have you been hit, kicked, punched, or otherwise hurt by someone within the past year? If so, by whom?: No Are you DNR?: No Advance Directives: No Advance Directives Information Provided: No Advance Directives on File: No Recently lost weight without trying: No Nutrition Risks: No Nutritional Risk Patient : No : No Poor oral hygiene: No service: No Current occupational status: employed Current occupation: [email or web address] Current occupational exposures/hazards: No Gender identity: Female Cognitive needs: No Hearing needs: No Vision needs: No Meds Allergies Allergy/AdvReac Type Severity Reaction Status Date / Time ENVIRONMENTAL Allergy Intermediate RUNNY Uncoded 11/16/22 10:43 NOSE, ASTHMA FLARE UP Home Medications Medication Instructions Recorded Confirmed Last Taken Type amlodipine 5 mg tablet 5 mg PO DAILY 04/06/22 11/11/22 11/16/22 09:00 History fexofenadine 180 mg tablet 180 mg PO DAILY 04/06/22 11/11/22 11/15/22 History (Chasidy Allergy) montelukast 10 mg tablet 10 mg PO BEDTIME 11/11/22 11/11/22 11/15/22 History fluticasone 250 mcg-salmeterol 50 1 ea inhalation BID 11/16/22 11/16/22 11/16/22 09:00 History mcg/dose blistr powdr for inhalation (Advair Diskus) Exam Exam Date and Time: November 15, 2022 0919 Height,Weight and Vital Signs: Height 5 ft 4 in Weight 123.377 kg Pertinent Lab Results Pertinent Lab Results: Laboratory Tests 11/10/22 11/10/22 07:50 07:52 PT 11.0 L INR 0.9 APTT 32.8 Sodium 141 Potassium 3.5 D Chloride 105 Carbon Dioxide 25 Anion Gap 15 BUN 16 Creatinine 0.72 Estim Creat Clear Calc TNP Estimated GFR > 60 Random Glucose 98 Estimat Average Glucose 100 Hemoglobin A1c % 5.1 Insulin Level 9 Calcium 9.7 Total Bilirubin 0.5 AST 23 ALT 32 H Alkaline Phosphatase 68 C-Reactive Protein 2.43 H Total Protein 7.1 Albumin 4.4 Triglycerides 216 H Cholesterol 211 H LDL Cholesterol, Calc 111 H HDL Cholesterol 57 TSH 2.78 Blood Type A Positive Antibody Screen NEGATIVE Narrative Narrative: Per 07/2022 cardiology office visit note: Baseline EKG shows sinus tachycardia but otherwise unremarkable. In the echocardiogram, LVEF preserved. There is a question of basal inferior hypokinesis but more than likely, could be just from the way it is visualized. Possibly normal. Images reviewed. Coronary CTA reviewed. No coronary artery calcification. No definite coronary stenosis. Assessment and Plan Assessment Anesthesia Assessment: Chart Reviewed Documented by User: Gladys Yee MD 11/16/22 13:33 [facility] Past Medical History Medical History Fatty liver Anxiety Murmur HTN (hypertension) Chest pain Morbid obesity Asthma COVID-19 COPD (chronic obstructive pulmonary disease) Allergic rhinitis TISHA on CPAP Obesity (BMI 30-39.9) Family History Family History Father HTN (hypertension) Mother HTN (hypertension) Maternal Grandmother Breast cancer Surgical History Surgical History Hx of sinus surgery History of loop electrical excision procedure (LEEP) History of carpal tunnel surgery History of Problems with Anesthesia: No Social History Social History Household Members: None Housing: Apartment Are you a primary care coordination manager to a significant other at home: No Do you presently have visiting nurse or other home services: No Alcohol intake: current Alcohol intake frequency: does not drink Patient Tobacco Use Status: Never used Tobacco e-Cigarette/Vaping Use: Never Used Second Hand Smoke Exposure: No Use of substances other than those prescribed or required for medical reasons: No Have you been hit, kicked, punched, or otherwise hurt by someone within the past year? If so, by whom?: No Are you DNR?: No Advance Directives: No Advance Directives Information Provided: No Advance Directives on File: No Recently lost weight without trying: No Nutrition Risks: No Nutritional Risk Patient : No : No Poor oral hygiene: No service: No Current occupational status: employed Current occupation: [email or web address] Current occupational exposures/hazards: No Gender identity: Female Cognitive needs: No Hearing needs: No Vision needs: No Meds Allergies Allergy/AdvReac Type Severity Reaction Status Date / Time ENVIRONMENTAL Allergy Intermediate RUNNY Uncoded 11/16/22 10:43 NOSE, ASTHMA FLARE UP Home Medications Medication Instructions Recorded Confirmed Last Taken Type amlodipine 5 mg tablet 5 mg PO DAILY 04/06/22 11/11/22 11/16/22 09:00 History fexofenadine 180 mg tablet 180 mg PO DAILY 04/06/22 11/11/22 11/15/22 History (Chasidy Allergy) montelukast 10 mg tablet 10 mg PO BEDTIME 11/11/22 11/11/22 11/15/22 History fluticasone 250 mcg-salmeterol 50 1 ea inhalation BID 11/16/22 11/16/22 11/16/22 09:00 History mcg/dose blistr powdr for inhalation (Advair Diskus) Exam Airway Mallampati Class: III TM Dist: >3cm Neck ROM: Full Loose/Missing/Broken Teeth: No Heart: RRR Lungs: CTA Assessment and Plan Assessment Anesthesia Assessment: Anesthesia Plan Discussed Final Anesthetic Review History of Problems with Anesthesia: No NPO: Yes ASA Class: III Final Preanesthetic Review: Meds/Allgs Chart Reviewed, Consent Obtained/Reviewed and Anes Risks/Benef Reviewed Patient Risk: Intermediate Procedure Risk: Intermediate Anesthetic Plan Anesthetic Plan: GA Disposition: Standard PACU
[2022-11-16] VITALS (15 sets, daily range): BP systolic 82–132; BP diastolic 35–67; PULSE 87–108; RESP 16–24; TEMP 36–36.4; O2SAT 94–98; BMI 45.6
--- NOTE | 2022-11-16 10:45 | PHA.MEDREC ---
Pharmacy Consult ? Medication Reconciliation Pharmacy has reviewed the medication reconciliation.
[2022-11-16] MEDS: Lactated Ringers 1,000 ML 999 ML IV (11:13)
[2022-11-16] MEDS: Aprepitant 32 MG/4.4 ML VIAL IVPUSH (11:13)
[2022-11-16 12:13] LABS: UPreg QC Valid YES; Urine Pregnancy NEGATIVE (NEGATIVE)
--- NOTE | 2022-11-16 12:21 | PM.OP ---
Brief Operative Note Date of Service: 11/16/22 Pre-op diagnosis: Morbid obesity with comorbidities (see below) Post-op diagnosis: same (& abdominal adhesions) Procedure: INITIAL PATIENT BMI ON PRESENTATION AT OUR OFFICE: 52 kg/m2 LAST BMI BEFORE SURGERY: 47.6 kg/m2 COMORBIDITIES: sleep anea on CPAP, thrombocytosis, hypertension, asthma, GERD, liver steatosis, liver fibrosis, left inferior wall hypokinesis ?The patient presented to the Weight Management Program with significant obesity that was negatively impacting the patient's comorbidities as listed above.? The program is a phased program with a special focus on preoperative medical weight management to promote substantial weight loss and prepare the patients for the second phase of the program: bariatric surgery. The patient participated in an intensive weekly lifestyle ?intervention and exercise program during which the patient ?has lost between the initial office visit and the last preoperative visit 23.2lbs, or 7.77% of initial actual body weight. It was deemed appropriate for the patient to now have bariatric surgery. In light of the current Covid-19 pandemic and the well documented strong association of obesity and increased risk of worse outcomes if infected with Covid-19 (REFERENCES:https://pubmed.ncbi.nlm.nih.gov/06261400/,?https://pubmed.ncbi.nlm.nih.gov/87982927/), any delay in undergoing bariatric surgery may lead to the patient's worsening health condition and increased?risk of more severe Covid-19 disease if infected. In addition a recent?study from [facility] published in [facility] on 02/16/2021 ([email or web address]) found that, among patients with obesity, substantial weight loss achieved with surgery was associated with improved outcomes of COVID-19 infection. The findings suggest that obesity can be a modifiable risk factor for the severity of COVID-19 infection. In addition, the patient met the BMI-criteria for bariatric surgery based on the BMI on initial presentation. The patient should not be penalized for achieving such weight loss because ?it is not sustainable long-term without surgical intervention and it was achieved in preparation for bariatric surgery ?under my direction and based on my published research ([email or web address]).[email or web address] and?[email or web address].soard.org/article/[email or web address]/pdf) ?that a 10% preoperative weight loss improves long-term weight loss after surgery and reduces perioperative complications.? Insurance carriers such as [facility] have endorsed my recommendations ?and have included in their policies criteria to include a 10% preoperative weight loss requirement. PROCEDURE: Esophago-gastroscopy, laparoscopic lysis of adhesions, laparoscopic sleeve gastrectomy and laparoscopic gastropexy INDICATIONS: This is a 37 year-old female who was electively scheduled for laparoscopic, possibly open sleeve gastrectomy. The risks and complications of the procedure were discussed with the patient in advance, particularly the possibility of ; pulmonary embolism; staple line leak; bleeding; GERD; cardiac, pulmonary, or renal complications; as well as long-term problems such as insufficient weight loss, vitamin deficiency, strictures, or ulcers. The patient understood all the risks, and was in agreement to proceed with surgery. DESCRIPTION OF PROCEDURE: After informed consent was obtained from the patient, the patient was given preoperative antibiotics, and was transferred to the operating room. After successful induction of general anesthesia, pneumatic compression devices were placed on both lower extremities. An upper endoscopy was performed next. The oropharynx and esophagus appeared to be within normal limits. There was no diaphragmatic hernia present consistent with the findings of the preoperative upper GI. The stomach was entered. Then after all fluid and air were suctioned and the stomach was fully decompressed, the scope was withdrawn and secured in the mid esophagus. The patient was then prepped and draped in the usual sterile manner, and abdominal access was established at the right upper quadrant with the Hever technique. A 12 mm blunt port was inserted, and the abdomen was insufflated with CO2 to a pressure of 15 mmHg. Under direct visualization, additional ports were placed, specifically two 5 mm Versi-step ports to the left upper quadrant, and a 5 mm Versi-Step port to the right upper quadrant. 1% lidocaine plain was used to infiltrate all port sites as well as all fascia defects. Following that, the patient was placed in a steep reverse Trendelenburg position. An additional 5 mm port was placed to the right flank for the Mediflex retractor that was used to retract the left lobe of the liver. The gastro-esophageal fat pad was opened with the ultrasonic device (Thunderbeat, Olympus) and the anterior esophagus and hiatus were exposed. The angle of His was opened with the ultrasonic device the fundus of the stomach from any diaphragmatic and splenic attachments. I then opened the gastrocolic ligament between the transverse colon and the greater curvature of the stomach with the ultrasonic device to enter the lesser sac and facilitate the ligation of the short gastric vessels. I started at a mid-point along the greater curvature and using the Thunderbeat, all short gastric vessels were divided all the way to the angle of His until the left beth was completely dissected at its entirety. I then divided the gastro-colic ligament distally to a distance of about 3-4 cm proximal to the pylorus. There were extensive congenital adhesions between the pancreas and posterior gastric wall. Those were lysed completely with the ultrasonic device. Adhesiolysis took approximately 45 min to complete. The stomach was then divided transversely with one Endo VIJAY-45 purple and four VIJAY-60 articulating purple loads using the SIGNIA stapler and loads. Every effort was made that the gastric sleeve had a tubular shape and an even caliber throughout. Once the sleeve resection was completed, the staple line of the gastric sleeve was reinforced with Hemoclips. The resected stomach was retrieved without difficulty from the Hever port. A gastropexy was then performed in order to prevent postoperative GERD and partial gastric volvulus. Several interrupted 2.0 Surgidac sutures were placed between the sleeve's staple line and the previously divided greater omentum and gastro-colic ligament using the Endo-Stitch device. ?An upper endoscopy was performed. There was no narrowing at the GE junction. The scope was easily advanced all the way to the pylorus which was clearly visualized. There was no narrowing anywhere and the sleeve's caliber was even throughout. The sleeve's staple line was inspected and there was no evidence of ischemia, bleeding or dehiscence. At that point the gastroscope was withdrawn from the patient?s mouth while we were decompressing the bowel and the stomach from any remaining air. I looked into the lesser sac to see how the sleeve was situating and it was situating well. There was no bleeding from the staple line, spleen, or short gastric vessels. The Mediflex retractor was removed, and the undersurface of the liver was inspected and there was no bleeding. The patient was placed in supine position. I closed the fascial defect of the 12 mm port site with a figure of eight #1 Polysorb suture. Then 30cc Ropivacaine plain with 10 mg of Dexamethasone were used to infiltrate the fascial closure as well as all skin incisions. A total of 7ml Zynrelef was applied in the Hever wound. At this point, the abdomen was deflated, all ports were removed under direct vision, and no bleeding was noted from any of the port sites. The skin incisions were irrigated with saline and were closed with 4-0 absorbable monofilament sutures. Steri-Strips and OpSites were used to cover all incisions. The patient was extubated and was transferred in stable condition to the recovery room for further care. I was present and performed all flor parts of the procedure. Mr Cardoza was the assistant project engineer. There were no residents to assist with this case. Tim Love MD, PhD, FACS Surgeon: Mikal Love MD Anesthesia: GETA, local and other (TAP block and 7ml Zynrelef) Was an Removable Prosthodontist used for this Procedure?: No Removable Prosthodontist: Marck Cardoza Estimated blood loss (mL): 10 IV fluids (mL): 2,300 Urine output (mL): 0 (No Gil to record output) Pathology: other (Stomach) Condition: stable Disposition: PACU
--- NOTE | 2022-11-16 12:26 | P.PNGS_ITS ---
Subjective Subjective Date of Service: 11/17/22 Interval history: Feels well. Mild incisional pain. She is tolerating phase 1 bariatric diet Physical Exam 2 Vital Signs: Vital Signs: Last Vital Signs Temp 97.3 F 11/16/22 10:58 Pulse 108 H 11/16/22 10:58 Resp 16 11/16/22 10:58 BP 82/35 L 11/16/22 10:58 Pulse Ox 97 11/16/22 10:58 O2 Del Method Room Air 11/16/22 10:58 BMI result Body Mass Index 46.7 GI: Inspection: Yes normal to inspection, Yes incision (clean, dry and intact) and Yes obesity Palpation (GI): Soft to palpation Extrem: Right lower extremity: normal to inspection (no calf tenderness) L eft lower extremity: normal to inspection (no calf tenderness) Objective Data Active Medications Albuterol Sulfate (Albuterol Sulfate (0.083%) 2.5 Mg/3 Ml Vial.Neb) 2.5 mg INHALE ONCE PRN PRN Reason: Shortness of Breath/Wheezing Lactated Ringer's (Lr) 1,000 mls @ 100 mls/hr IVCONT .Q10H JOE Lactated Ringer's (Lr) 1,000 mls @ 999 mls/hr IV .Q1H1M JOE Stop: 11/16/22 12:45 Last Admin: 11/16/22 11:13 Dose: 999 mls/hr Documented By: JOSE CARLOS Labs 11/17/22 05:33 11/17/22 05:33 Labs: Laboratory Results - last 24 hr 11/16/22 11:55 Urine Test NEGATIVE Procedures Date of Service Date of Service: 11/17/22 Progress Note: A&P Assessment and plan (1) Morbid obesity: Status: Acute Assessment and Plan: s/p laparoscopic sleeve gastrectomy, lysis of adhesions, and gastropexy Doing well Will check am labs and if OK the patient will be discharged home (2) TISHA on CPAP: Status: Acute (3) Asthma: Status: Acute (4) Thrombocytosis: Status: Chronic (5) HTN (hypertension): Status: Acute (6) GERD (gastroesophageal reflux disease): Status: Acute (7) Fatty liver: Status: Acute (8) Liver fibrosis: Status: Acute (9) Hepatomegaly: Status: Acute (10) Left ventricular hypokinesis: Status: Acute (11) S/P laparoscopic sleeve gastrectomy: Status: Acute (12) Congenital intra-abdominal adhesions: Status: Acute Time Spent With Patient Time: Total time managing care of this patient today ____ minutes. Quality Stroke Does the patient have a stroke diagnosis?: No VTE Prior VTE?: No VTE Risk Level:: Medical - moderate - high VTE Device Contraindication: N/A - Device Ordered VTE Drug Contraindication: Treatment Not Indicated
--- NOTE | 2022-11-16 15:01 | P.DS_ITS ---
DS: Providers Provider Date of Service: 11/17/22 Date of admission: 11/16/22 10:33 Primary care physician: JOSEFA DiazPJennifer DS: Diagnosis Discharge Diagnosis (1) Morbid obesity: Status: Acute (2) TISHA on CPAP: Status: Acute (3) Asthma: Status: Acute (4) Thrombocytosis: Status: Chronic (5) HTN (hypertension): Status: Acute (6) GERD (gastroesophageal reflux disease): Status: Acute (7) Fatty liver: Status: Acute (8) Liver fibrosis: Status: Acute (9) Hepatomegaly: Status: Acute (10) Left ventricular hypokinesis: Status: Acute DS: Summary Hospital Course Hospital Course: ADMITTING DIAGNOSIS: morbid obesity, htn, tisha, chronic leukocytosis/thrombocytosis ? DISCHARGE DIAGNOSIS: same, s/p laparoscopic sleeve gastrectomy ? PAST SURGICAL HISTORY: sinus surgery, carpal tunnel ? PROCEDURE: upper endoscopy, laparoscopic sleeve gastrectomy ? DISCHARGE SUMMARY: ? History of Present Illness: ? The patient is a?37 year-old woman with a BMI of?52 kg/m2 and associated co- morbidities as described above. The patient had extensive work-up,lost?27.2 lbs preoperatively and was electively scheduled for laparoscopic, possible open sleeve gastrectomy and gastropexy. Risks and complications of the surgery were discussed with the patient in advance, particularly the possibility of , pulmonary embolism, anastomotic leak, bleeding, bowel injury, GERD, cardiac, renal or pulmonary complications. The patient understood all the risks and was in agreement with the surgical plan. ? Hospital Course: ? The patient underwent an uneventful laparoscopic sleeve gastrectomy with gastropexy on the day of admission. Postoperatively, the patient was transferred to the surgical floor. The patient received IV Acetaminophen and IV dilaudid for pain control. Patient was started on bariatric phase 1 diet POD #0. On postoperative day one, the patient was feeling well without nausea, vomiting, fevers, or tachycardia. The patient had some mild incisional pain and the abdomen was soft. ? On the morning of postoperative day one, the patient was continued on 1 ounce of water or ice every half hour. During the day, the patient did fairly well, having some incisional pain, but able to ambulate adequately and to tolerate liquids well. ? Since the patient is doing well, we decided that the patient was ready to be discharged. The patient was given instructions to follow-up with me next week and to call my office for any fever over 101, persistent abdominal pain, nausea, vomiting, GERD, symptoms of DVT such as calf tenderness, or leg swelling, or pulmonary embolism such as chest pain or shortness of breath. The patient was also instructed to drink 40-60 ounces of liquids per day using the 1-ounce cups. The patient had been given prescriptions for Tylenol for pain, Zofran prn for nausea, and pantoprazole and carafate previously. The patient was encouraged to ambulate and use the incentive spirometer. The patient was allowed to shower, but no baths, and encouraged to stay active at home. All of these instructions were given to the patient personally. All questions were answered and the patient understood all instructions, the instructions were also given to the patient in print. Time Spent with Patient Time attestation: Total time managing care of this patient today ____ minutes. Discharge coordination time: Less than 30 minutes Quality: Safe Use of Opioids Does Pt have an Active Cancer Diagnosis on the Problem List?: No Quality: Stroke Does the patient have a stroke diagnosis?: No Physical Exam Vital Signs: Vital Signs: Last Vital Signs Temp 97.3 F 11/16/22 10:58 Pulse 108 H 11/16/22 10:58 Resp 16 11/16/22 10:58 BP 82/35 L 11/16/22 10:58 Pulse Ox 97 11/16/22 10:58 O2 Del Method Room Air 11/16/22 10:58 BMI result Body Mass Index 46.7 DS: Data Data Completed and Pending Pending studies at discharge: Pending at discharge 11/16/22 14:06 Surgical [PTH] Routine Labs on day of discharge: Laboratory Results - last 24 hr 11/16/22 11:55 Urine Test NEGATIVE Discharge Plan Discharge Anticipated Discharge Date/Time: 11/17/22 15:08 Patient Disposition: Home, Self-Care Discharge Diagnosis: s/p laparoscopic sleeve gastrectomy Referrals: Emmanuel Collins, [employer] [Primary Care Provider] - 1 Week Discharge Medications: Continued albuterol sulfate 2.5 mg /3 mL (0.083 %) solution for nebulization 2.5 mg inhalation Q4-6H PRN (Reason: shortness of breath or wheezing) Qty: 180 0RF ipratropium bromide 0.02 % solution 2.5 ml inhalation Q6H PRN (Reason: shortness of breath or wheezing) Qty: 150 0RF albuterol sulfate [ProAir HFA] 90 mcg/actuation HFA aerosol inhaler 2 puff inhalation Q4-6H PRN (Reason: shortness of breath or wheezing) Qty: 1 2RF sucralfate 1 gram tablet 1 g PO BID Qty: 60 2RF montelukast 10 mg tablet 10 mg PO BEDTIME fluticasone propion-salmeterol [Advair Diskus] 250-50 mcg/dose blister with device 1 ea INHALATION BID fexofenadine [Chasidy Allergy] 180 mg tablet 180 mg PO DAILY pantoprazole 40 mg tablet,delayed release (DR/EC) 40 mg PO DAILY Qty: 30 2RF ondansetron 4 mg tablet,disintegrating 4 mg PO Q12H Qty: 20 0RF ipratropium-albuterol 0.5 mg-3 mg(2.5 mg base)/3 mL solution for nebulization 3 ml inhalation Q6H PRN (Reason: wheezing) Qty: 180 0RF Held levonorg-eth estrad triphasic 50-30 (6)/75-40 (5)/125-30(10) tablet 1 tab PO DAILY 30 Days Qty: 30 0RF Hold Instructions: until discussed with dr cabello olmesartan-hydrochlorothiazide 20-12.5 mg tablet 1 tab PO DAILY 90 Days Qty: 90 0RF Hold Instructions: Resume on 11/18/22. Check your blood pressure every evening and send it to Dr. Cabello. Do not take the medication before you hear from Dr. Cabello. Do not take the medication if your blood pressure is below 120/70 mmHg. amlodipine 5 mg tablet 5 mg PO DAILY Hold Instructions: Resume on 11/18/22. Check your blood pressure every evening and send it to Dr. Cabello. Do not take the medication before you hear from Dr. Cabello. Do not take the medication if your blood pressure is below 120/70 mmHg. Discontinued cyanocobalamin (vitamin B-12) 500 mcg tablet 500 mcg PO DAILY Qty: 90 2RF cholecalciferol (vitamin D3) [Vitamin D3] 50 mcg (2,000 unit) capsule 50 mcg PO DAILY Qty: 90 5RF polyethylene glycol 3350 [Miralax] 17 gram powder in packet 17 g PO DAILY Qty: 14 0RF Rx Instructions: Mix each packet with 8oz of water, Crystal light, or Gatorade zero, or Propel and do 7 packets on 11/14/22 and another 7 packets on 11/15/22 Discharge Orders: Discharge Order (Routine); Ordered 11/17/22 Ordered By: Mikal Cabello Activity on Discharge: No heavy lifting Stand Alone Forms: Patient Portal Discharge page Care Plan Goals: weight loss Health Concerns: morbid obesity Plan of Treatment: No tub baths, sex or returning to work until discussed at first post op appointment. No exercise, alcohol, tobacco or illegal drug use. Continue to use incentive spirometer hourly while awake. Walk in home for 5- 10 minutes every 2 hours during the first week. Follow all instructions in the bariatric handbook and call with any questions.Discharge Instructions 1. Please call your doctor or come back to the emergency room should any new symptoms arise. 2. You will receive a courtesy call from [facility] 24-48 hours after discharge. 3. Activity: abstain from alcohol, practice limited stair climbing, no bending, no driving, no exercise, no illicit substances, no lifting, no sex, no tub bath, no work. 4. Diet: continue as discussed with Dr. Cabello. 5. Dressing Change/Wound Care: Your incision is covered by clear bandages and guaze underneath. If the area is tender, you may apply an ice pack for short intervals (no more than 20 minutes on, followed by at least 20 minutes off). Do not apply heat. Do not use creams, lotions, or topical antibiotics unless instructed to do so by your surgeon. These can cause infection or allergic reaction. 6. Call your doctor if: - Your temperature exceeds 101.5 F - You experience excessive pain or swelling - You have an unexpected reaction to medication - You have excessive bleeding - You experience continued vomiting/nausea - Your incision begins to separate - Your incision shows signs of infection such as increased redness, swelling, excessive pain, heat, or drainage (light blood or clear fluid is normal) 7. General instructions: No lifting greater than 5 lbs for 1 week and not more than 20lbs the next 3?weeks. No driving until seen at the office in 5-7 days after surgery. If you do not move your bowels in the next 2 days, please tell?Dr. Cabello. Please walk around your home every hour or two to prevent blood clots from forming in your legs. You do not need to wake from sleeping to walk. Please sleep in a bed or couch to prevent kinking at the hips and knees. Please take your incentive spirometer (your lung supervisor soldering) home with you and use it for the next few days to prevent pneumonia. You may shower, no hot tubs, baths or swimming pools.?Please follow the post op diet instructions you are?given by Dr Lauren stone? and text me daily at 5-6pm for an update.?If you have any issues or concerns or questions please communicate this to him via text.? The Celebrate shakes have all of the bariatric vitamins you need if you consume these shakes. If you are drinking other protein shakes, you will need to purchase the Celebrate multivitamins and calcium that are available in the hospital gift shop on the first floor of the [facility].??Do not take anything without first discussing with Dr Cabello. Please make sure you are consuming at least 40 ounces of fluids per day starting the?day AFTER your discharge from the hospital. Always drink 1-2 ml per minute using the 5ml?syringe. If you drink faster you may experience?bloating,?gas pain, burping, nausea or heartburn. In that case please slow down your pace and use the syringe to?understand better the?proper?pace and volume of drinking. Do not hesitate to contact the office with any questions at . The patient's medical history has been reviewed and they are considered low risk for post op DVT and therefore DVT prophylaxis is not considered necessary. Travel after surgery was reviewed. The patient has not disclosed any travel plans during the first 30 days after surgery and they have been advised that within the first 30 days after surgery any bus, plane, train or car travel over 2 hours in duration is contraindicated due to the possibility of developing blood clots from immobility. Any travel, needs to include periods of ambulation of 10 minutes in duration every 2 hours.? The patient was instructed to discuss any plans for travel during this period with their bariatric surgeon. Assessment: stable s/p laparoscopic sleeve gastrectomy
[2022-11-16] MEDS: HYDROmorphone HCl 0.5 MG/0.5 ML SYRINGE 0.25 MG IVPUSH ×5 (15:13→23:07)
[2022-11-16] MEDS: oxyCODONE HCl Immed Release 5 MG TABLET PO (15:14)
[2022-11-16 15:45] LABS: Hematocrit 36.5 % (37.0-47.0); Hemoglobin 11.7 g/dl (12.0-16.0)
[2022-11-16 16:11] LABS: Anion Gap 15 (12-20); Blood Urea Nitrogen 55 mg/dL (9-16); Carbon Dioxide 17 mmol/L (22-29); Chloride 107 mmol/L (96-108); Creatinine Clr Calc Pharmacy 53.9; Estimated Glomerular Filt Rate 30; Glucose Random 153 mg/dL (60-115); Potassium 3.8 mmol/L (3.3-5.1); Sodium 135 mmol/L (135-145)
[2022-11-16] MEDS: Lactated Ringers 1,000 ML 100 ML IVCONT (16:32)
[2022-11-16] MEDS: ceFAZolin Sodium/Dextrose,Iso 2 GM/50 ML PIGGYBACK IV (18:26)
[2022-11-16] MEDS: Acetaminophen 1,000 MG/100 ML PIGGYBACK 400 MG IV (19:19)
[2022-11-16] MEDS: Montelukast Sodium 10 MG TABLET PO (20:19)
[2022-11-16] MEDS: 0.9 % Sodium Chloride Flush 3 ML SYRINGE IVFLUSH (20:19)
[2022-11-16] MEDS: Famotidine/PF 20 MG/2 ML VIAL IVPUSH (20:19)
[2022-11-16] MEDS: Lactated Ringers 1,000 ML 175 ML IVCONT (23:07)
[2022-11-17] VITALS: BP 100/56; PULSE 99; RESP 14; TEMP 36.2; O2SAT 96
[2022-11-17 03:14] VITALS: BP 106/57; PULSE 85; RESP 16; TEMP 36.1; O2SAT 97
[2022-11-17] MEDS: Acetaminophen 1,000 MG/100 ML PIGGYBACK 400 MG IV ×2 (03:16→09:02)
[2022-11-17] MEDS: Lactated Ringers 1,000 ML 175 ML IVCONT (04:53)
[2022-11-17] MEDS: HYDROmorphone HCl 0.5 MG/0.5 ML SYRINGE 0.25 MG IVPUSH (05:20)
[2022-11-17 07:18] LABS: MANUAL DIFF FLAG NO
[2022-11-17 07:30] VITALS: BP 145/71; PULSE 82; RESP 20; TEMP 36.3; O2SAT 97
[2022-11-17 07:32] LABS: Basophils Percent Auto 0.1 % (0-2); Hematocrit 39.1 % (37.0-47.0); Hemoglobin 12.7 g/dl (12.0-16.0); Imm Gran Abs Auto 0.07 X10*3/uL (0.00-0.03); Imm Gran Pct Auto 0.6 % (0.0-0.4); Lymphocytes Absolute Auto 1.1 X10*3/uL (1.2-4.9); Lymphocytes Percent Auto 9.8 % (20-40); Mean Corpuscular HGB Conc 32.5 g/dl (31.0-35.0); Mean Corpuscular Hemoglobin 29.7 pg (27.0-33.0); Mean Corpuscular Volume 91.6 fL (80.0-98.0); Mean Platelet Volume 11.1 fL (9.4-12.3); Monocytes Absolute Auto 0.5 X10*3/uL (0.1-1.2); Monocytes Percent Auto 3.9 % (2-11); Neutrophils Absolute Auto 9.9 x10*3/uL (2.0-8.3); Neutrophils Percent Auto 85.6 % (45-73); Platelet Count 513 X10*3/uL (160-400); Red Blood Count 4.27 X10*6/uL (4.20-5.50); Red Cell Distribution Width 12.8 % (11.0-16.0); White Blood Count 11.6 X10*3/uL (4.8-10.8)
[2022-11-17 08:10] LABS: Anion Gap 18 (12-20); Blood Urea Nitrogen 29 mg/dL (9-16); Calcium 9.8 mg/dL (8.4-10.2); Carbon Dioxide 18 mmol/L (22-29); Chloride 107 mmol/L (96-108); Creatinine Clr Calc Pharmacy 100.5; Estimated Glomerular Filt Rate > 60; Glucose Random 129 mg/dL (60-115); Potassium 3.7 mmol/L (3.3-5.1); Sodium 139 mmol/L (135-145)
[2022-11-17] MEDS: amLODIPine Besylate 5 MG TABLET PO (08:14)
[2022-11-17] MEDS: Famotidine/PF 20 MG/2 ML VIAL IVPUSH (08:14)
[2022-11-17] MEDS: Fluticasone/Vilanterol 100/25 BLST.W.DEV 1 PUFF INHALE (08:42)
[2022-11-17 08:43] VITALS: PULSE 98; RESP 18; O2SAT 96
--- NOTE | 2022-11-17 09:16 | MHC.CM.PN ---
PT REPORTS SHE LIVES ALONE AND IS INDEPENDENT WITH CARE SHE SAYS HER FATHER LIVES NEXT DOOR AND HER MOTHER LIVES AROUND THE CORNER SHE REPORTS SHE USES A CPAP AT NIGHT AND NO OTHER DME SHE HAS NO SERVICES SHE COMPLETED A HCP TODAY NAMING HER BROTHER AND FATHER HER AGENTS PCP: CHARLINE WASHINGTON PT WILL DC HOME TODAY WITH NO SERVICES VIA FAMILY TRANSPORT
--- NOTE | 2022-11-17 09:55 | MHC.CM.PN ---
Patient discharged to home self care. She has arranged for transportation home.
[2022-11-17 11:09] VITALS: BP 136/65; PULSE 87; RESP 16; TEMP 36.2; O2SAT 97
--- NOTE | 2022-11-17 12:35 | HO.POSTANES ---
Post Anesthesia Evaluation Post Anesthesia Evaluation Date of Service: 11/17/22 Vital Signs: Vital Signs Temp Pulse Resp BP Pulse Ox O2 Del Method O2 Flow Rate 11/17/22 11:09 97.1 F 87 16 136/65 97 Room Air 11/17/22 08:43 98 18 11/17/22 07:30 97.4 F 82 20 145/71 H 97 Room Air 11/17/22 03:14 96.9 F 85 16 106/57 L 97 Nasal Cannula 2 Anesthesia: General Endotracheal-GETA Mental Status: Awake Pain Control: Satisfactory Nausea/Vomiting: None Hydration: Adequate Anesthesia-Related Issues: No Anes. Related Issues
== END 2022-11-17 12:53 | disposition home or self-care (01) | DRG 620 ==
LOC: HO.SSSA 10:38 → HO.S3 15:13
PROVIDERS: Nurse Practitioner; Physician Assistant Surgical; Admitting Provider Surgery; PCP Nurse Practitioner Family; Visit Provider Surgery
PROC: 0DB64Z3 Excision of Stomach, Percutaneous Endoscopic Approach, Vertical (ICD-10-PCS; CPT 43845; principal; 2022-11-16 12:50)
DX: E66.01 Morbid (severe) obesity due to excess calories (principal); Q43.3 Congenital malformations of intestinal fixation; K76.0 Fatty (change of) liver, not elsewhere classified; G47.33 Obstructive sleep apnea (adult) (pediatric); K74.00 Hepatic fibrosis, unspecified; D75.839 Thrombocytosis, unspecified; J44.9 Chronic obstructive pulmonary disease, unspecified; I10 Essential (primary) hypertension; Z79.51 Long term (current) use of inhaled steroids; Z79.899 Other long term (current) drug therapy
CPT/HCPCS: 36415; 80048; 80053; 80061; 81025; 83036; 83525; 84443; 85014; 85018; 85025; 85610; 85730; 86140; 86850; 86900; 86901; 88304; 88305; 88307; 88342; 94640; A4649; C9088; C9145; J0131; J0690; J1100; J1170; J2250; J2371; J2405; J2795; J3010

== ENCOUNTER → 2022-11-16 10:33 | Outpatient (BNV) | payer OTHER, SELFPAY | PROVIDERS: Admitting Provider Surgery; PCP Nurse Practitioner Family; Visit Provider Surgery | DX: E66.01 Morbid (severe) obesity due to excess calories (principal); Z68.42 Body mass index [BMI] 45.0-49.9, adult; K66.0 Peritoneal adhesions (postprocedural) (postinfection) | CPT/HCPCS: 43659; 43775; 99024 ==

== ENCOUNTER 2022-11-23 10:30 | Outpatient (AMB) | payer OTHER, SELFPAY ==
--- NOTE | 2022-11-23 11:09 | MHC.OFFVISWM ---
Intake VS Expanded 11/23/22 11:13 Blood Pressure Location Rt brachial Blood Pressure Position Sitting Pulse 92 Pulse Source Pulse Oximeter Temp 97.4 F Temperature Source Temporal Artery Scan Pulse Oximetry 97 Oxygen Delivery Method Room Air Height 5 ft 4 in Weight 262 lb 12.8 oz BMI 45.1 Body Fat % 48.2 Body Fat Mass 126.6 Fat Free Mass 136.2 Visceral Fat Rating 14.0 Body Water % 37.2 Body Water Mass 97.6 Muscle Mass/Score 129.4 Basal Metabolic Rate/Score 1,957 Intake Visit Reasons: (OV) 7 Days PO LSG 11/16/22 Allergies ENVIRONMENTAL Allergy (Intermediate, Uncoded 11/16/22 10:43) RUNNY NOSE, ASTHMA FLARE UP HPI HPI Comments History of Present Illness Details 37-year-old female returns to the office today in follow-up. She is postop day 7, status post sleeve gastrectomy on 11/16/2022. Tolerating celebrate 4 in 1 shakes with 1 screw beach, x3. Tolerating 3 celebrate 4 in 1 shakes She has been communicating with Dr. Love regarding her blood pressure and dosing of amlodipine. Hydrochlorothiazide remains on hold. [facility] Medical History (Updated 11/16/22 @ 18:59 by Mikal Love MD) Fatty liver Anxiety Murmur HTN (hypertension) Chest pain Morbid obesity Asthma COVID-19 COPD (chronic obstructive pulmonary disease) Allergic rhinitis TISHA on CPAP Obesity (BMI 30-39.9) Surgical History (Updated 11/23/22 @ 11:12 by Mariah Mayfield CMA) S/P laparoscopic sleeve gastrectomy Hx of sinus surgery History of loop electrical excision procedure (LEEP) History of carpal tunnel surgery Family History Father HTN (hypertension) Mother HTN (hypertension) Maternal Grandmother Breast cancer Social History Household Members: None Housing: Apartment Are you a primary intensive care nurse to a significant other at home: No Do you presently have visiting nurse or other home services: No Alcohol intake: current Alcohol intake frequency: does not drink Patient Tobacco Use Status: Never used Tobacco e-Cigarette/Vaping Use: Never Used Second Hand Smoke Exposure: No service: No Current occupational status: employed Current occupation: [employer] Current occupational exposures/hazards: No Gender identity: Female Cognitive needs: No Hearing needs: No Vision needs: No Female Reproductive History Menstrual Age of Menarche: 17 Physical Exam Vital Signs: Last Vital Signs Temp 97.4 F 11/23/22 11:13 Pulse 92 11/23/22 11:13 Pulse Ox 97 11/23/22 11:13 Oxygen Delivery Method Room Air 11/23/22 11:13 BMI result Body Mass Index 45.1 GI Inspection: Yes incision (c/d/i) Assessment & Plan Assessment & Plan (1) S/P laparoscopic sleeve gastrectomy: Code(s): Z98.84 - Bariatric surgery status Plan: POD 7 s/p LSG on 11/16/[address] Love Weight loss prior to surgery was 27.2 pounds or 9.1 % TBWL. Original weight on 10/29/2021 was 298.4 pounds and op weight was 271.2 pounds. Be sure to text Dr Love exactly 1 week after surgery your weight from your home scale so he can adjust your meal plan. Continue meal plan until f/u w monroe in 2 weeks May shower, no submersion in bath for another week Continue abdominal binder with activity and exercise for the next 2 weeks. Exercise prior to surgery was treadmill and home videos, may resume treadmill and walking outside now (tracking calories) No abdominal exercises for 6 weeks post operatively Will be emailed link to post op video for review Reminded of the pace of drinking, 2 mL per minute, 1 oz/15 min. Coding Level of Care Code Global (45821) Diagnoses S/P laparoscopic sleeve gastrectomy Z98.84
[2022-11-23 11:13] VITALS: PULSE 92; TEMP 36.3; O2SAT 97; BMI 45.1
== END 2022-11-23 11:32 | disposition home or self-care (01) ==
PROVIDERS: PCP Nurse Practitioner Family; Visit Provider Physician Assistant Surgical
DX: Z98.84 Bariatric surgery status (principal)
CPT/HCPCS: 99024

== ENCOUNTER → 2022-11-23 10:30 | Outpatient (BNVA) | payer OTHER, SELFPAY | PROVIDERS: PCP Nurse Practitioner Family; Visit Provider Physician Assistant Surgical ==

== ENCOUNTER 2022-12-14 13:56 | Outpatient (AMB) | payer OTHER, SELFPAY ==
--- NOTE | 2022-12-14 14:14 | A.OFFVIS_ITS ---
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 Required: No Allergies ENVIRONMENTAL Allergy (Intermediate, Uncoded 11/16/22 10:43) RUNNY NOSE, ASTHMA FLARE UP Medication List - Last Reconciled 12/14/22 by SAMMY Currie albuterol sulfate 90 mcg/actuation (ProAir HFA) 2 puffs inhalation Q4-6H PRN albuterol sulfate 2.5 mg (3 mL) inhalation Q4-6H PRN amlodipine 5 mg PO DAILY fexofenadine (Chasidy Allergy) 180 mg PO DAILY fluticasone propion-salmeterol 250-50 mcg/dose (Advair Diskus) 1 ea inhalation BID ipratropium bromide 2.5 mL inhalation Q6H PRN ipratropium-albuterol 0.5 mg-3 mg(2.5 mg base)/3 mL 3 mL inhalation Q6H PRN levonorg-eth estrad triphasic 50-30 (6)/75-40 (5)/125-30(10) 1 tab PO DAILY 30 days montelukast 10 mg PO BEDTIME olmesartan-hydrochlorothiazide 20-12.5 mg 1 tab PO DAILY 90 days pantoprazole 40 mg PO DAILY HPI HPI Comments History of Present Illness Details This?a?37?yo female who is s/p LSG without hiatal hernia repair on?11/16/22. Presents for 1 month post op visit. Weight today is 251 pounds, with a BMI of 43.1. There has been a 47.4 pound weight loss,(initial weight 298.4 pounds) since starting the program on 10/29/21 reflecting a 15.8% total body weight loss and a weight loss of 20.2 pounds since surgery (operative weight 271.2 pounds) reflecting a 7.4% TBWL since surgery. No complaints of nausea, emesis, abdominal pain or reflux. Was rx sucralfate tabs and per Dr Aguilar, not to take. She has also been alternating Olmesartan/HCTZ with Amlodipine based on her BP. Not taking both on the same day. BP running 120s/ cannot remember bottom number Was inquiring about having a scrambled egg on tuesday, willing to continue her current meal plan for now. Wanted to stop using med cup Present meal plan includes: 2 celebrate 4 in 1 shake, 2 scoops each 830-1030, 1130 am-130 pm w almond milk isopure 1/2 scoop w water 230-430 pm Zone perfect bar 530pm-830 pm Drinking 32 oz or more in addition to her shakes. ? Exercise routine includes: walking outside 2 miles, 300 calories, 5 x per week. Injured her knee last week but was able to walk over the weekend with only mild left knee pain. Walked a mile yesterday, controlled with tylenol. Treadmill at her home [facility] Medical History (Updated 11/25/22 @ 00:03 by Indicee Dajane) Fatty liver Anxiety Murmur HTN (hypertension) Chest pain Morbid obesity Asthma COVID-19 COPD (chronic obstructive pulmonary disease) Allergic rhinitis TISHA on CPAP Obesity (BMI 30-39.9) Surgical History S/P laparoscopic sleeve gastrectomy Hx of sinus surgery History of loop electrical excision procedure (LEEP) History of carpal tunnel surgery Family History Father HTN (hypertension) Mother HTN (hypertension) Maternal Grandmother Breast cancer Social History Household Members: None Housing: Apartment Are you a primary pet care associate to a significant other at home: No Do you presently have visiting nurse or other home services: No Alcohol intake: current Alcohol intake frequency: does not drink Patient Tobacco Use Status: Never used Tobacco e-Cigarette/Vaping Use: Never Used Second Hand Smoke Exposure: No service: No Current occupational status: employed Current occupation: [employer] Current occupational exposures/hazards: No Gender identity: Female Cognitive needs: No Hearing needs: No Vision needs: No Female Reproductive History Menstrual Age of Menarche: 17 Physical Exam Vital Signs: Last Vital Signs Temp 97.8 F 12/14/22 14:21 Pulse 89 12/14/22 14:21 BP 98/57 L 12/14/22 14:21 Pulse Ox 99 12/14/22 14:21 BMI result Body Mass Index 43.1 GI Inspection: Yes incision (spitting suture right lat 5 mm incisions) Assessment & Plan Assessment & Plan (1) Morbid obesity: Code(s): E66.01 - Morbid (severe) obesity due to excess calories Plan: Willing and ok to continue meal plan for now May resume control pill Continue to take BP meds as instructed May have 1 scram egg on sundays per her request will continue to slowly resume her walking routine recc to take tylenol for the next 3-4 days as needed for pain although, per her report overall left knee pain is improving. RTC matty Rubin 3 weeks Coding Level of Care Code Global (66282) Diagnoses Morbid obesity E66.01
[2022-12-14 14:21] VITALS: BP 98/57; PULSE 89; TEMP 36.6; O2SAT 99; BMI 43.1
== END 2022-12-14 14:57 | disposition home or self-care (01) ==
PROVIDERS: PCP Nurse Practitioner Family; Visit Provider Physician Assistant Surgical
DX: E66.01 Morbid (severe) obesity due to excess calories (principal)
CPT/HCPCS: 99024

== ENCOUNTER → 2022-12-14 13:56 | Outpatient (BNVA) | payer OTHER, SELFPAY | PROVIDERS: PCP Nurse Practitioner Family; Visit Provider Physician Assistant Surgical ==

== ENCOUNTER 2022-12-16 16:30 | Outpatient (AMB) | payer OTHER, SELFPAY ==
--- NOTE | 2022-12-16 16:32 | A.OFFPC_ITS ---
Vital Signs 12/16/22 16:36 Height 5 ft 4 in Weight 265 lb BMI 45.5 BP 100/68 Blood Pressure Location Rt brachial Position Sitting Pulse 95 Pulse Source Pulse Oximeter Pulse Oximetry (%) 99 Oxygen Delivery Method Room Air Intake Visit Reasons: Annual PE Allergies ENVIRONMENTAL Allergy (Intermediate, Uncoded 12/16/22 16:36) RUNNY NOSE, ASTHMA FLARE UP Medication List - Last Reconciled 12/16/22 by ROBBIE Hamlin albuterol sulfate 90 mcg/actuation (ProAir HFA) 2 puffs inhalation Q4-6H PRN albuterol sulfate 2.5 mg (3 mL) inhalation Q4-6H PRN amlodipine 5 mg PO DAILY fexofenadine (Chasidy Allergy) 180 mg PO DAILY fluticasone propion-salmeterol 250-50 mcg/dose (Advair Diskus) 1 ea inhalation BID ipratropium bromide 2.5 mL inhalation Q6H PRN ipratropium-albuterol 0.5 mg-3 mg(2.5 mg base)/3 mL 3 mL inhalation Q6H PRN levonorg-eth estrad triphasic 50-30 (6)/75-40 (5)/125-30(10) 1 tab PO DAILY 30 days montelukast 10 mg PO BEDTIME olmesartan-hydrochlorothiazide 20-12.5 mg 1 tab PO DAILY 90 days pantoprazole 40 mg PO DAILY Tobacco use date assessed: 06/03/22 Dental Screening Dental Screen Date: 12/16/22 Did you have a dental visit in the last 12 months?: Yes Did you have a dental problem in the last 6 months where you did not have access to dental care?: No Was dental information given to patient?: Patient has dentist HPI Annual PE HPI Details Pt is here for a PE. Will order labs. 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 Pt had a recent gastric sleeve procedure. pt reports doing well, BP is lower, stopping all BP meds right now. [facility] Medical History Fatty liver Anxiety Murmur HTN (hypertension) Chest pain Morbid obesity Asthma COVID-19 COPD (chronic obstructive pulmonary disease) Allergic rhinitis TISHA on CPAP Obesity (BMI 30-39.9) Surgical History S/P laparoscopic sleeve gastrectomy Hx of sinus surgery History of loop electrical excision procedure (LEEP) History of carpal tunnel surgery Family History Father HTN (hypertension) Mother HTN (hypertension) Maternal Grandmother Breast cancer Social History Household Members: None Housing: Apartment Are you a primary director career to a significant other at home: No Do you presently have visiting nurse or other home services: No Alcohol intake: current Alcohol intake frequency: does not drink Patient Tobacco Use Status: Never used Tobacco e-Cigarette/Vaping Use: Never Used Second Hand Smoke Exposure: No service: No Current occupational status: employed Current occupation: [employer] Current occupational exposures/hazards: No Gender identity: Female Cognitive needs: No Hearing needs: No Vision needs: No Female Reproductive History Menstrual Age of Menarche: 17 Questionnaire PHQ-9 Over the last 2 weeks, how often have you been bothered by any of the following problems? 1. Little interest or pleasure in doing things: not at all 2. Feeling down, depressed, or hopeless: not at all 3. Trouble falling or staying asleep, or sleeping too much: not at all 4. Feeling tired or having little energy: not at all 5. Poor appetite or overeating: not at all 6. Feeling bad about yourself - or that you are a failure or have let yourself or your family down: not at all 7. Trouble concentrating on things, such as reading the newspaper or watching television: not at all 8. Moving or speaking so slowly that other people could have noticed. Or the opposite - being so fidgety or restless that you have been moving around a lot more than usual: not at all 9. Thoughts that you would be better off or of hurting yourself in some way: not at all Total score: 0 Depression Screening Interpretation: Negative Depression Screening Done: Yes 87079 - PHQ-9 Billing: Yes Source: Developed by Drs. Kevin Domingo, Roxanna Fernandez, Joe Charles and colleagues, with an educational zoraida from [employer]. Thrive Questionnaire Date Thrive assessed: 11/17/22 AUDIT C Alcohol Use Questionnaire (AUDIT-C) 1. How often do you have a drink containing alcohol?: Never 3. How often do you have six or more drinks on one occasion?: Never Total Score: 0 Score Reviewed/Action Taken: No ATIF-7 AMB Questionnaire ATIF-7 Date ATIF - 7 assessed: 12/16/22 Feeling nervous, anxious, or on edge: 0 = Not at all Not being able to stop or control worryin = Not at all Worrying too much about different things: 0 = Not at all Trouble relaxin = Not at all Being so restless that it is hard to sit still: 0 = Not at all Becoming easily annoyed or irritable: 0 = Not at all Feeling afraid as if something awful might happen: 0 = Not at all Total ATIF-7 score (0-4 normal; 5-9 mild; 10-14 moderate; 15-21 severe): 0 Source: Developed by Drs. Kevin Domingo, Roxanna Fernandez, Joe Charles and colleagues, with an educational zoraida from [employer]. ATIF-7 Assessment Billing ATIF-7 Assessment Tool: ATIF-7 Assessment 11079 Review of Systems Const Denies chills and Denies fever(s) Eyes Denies blurry vision ENT Denies vertigo, Denies dizziness and Denies sore throat Card Denies chest pain at rest, Denies chest pain with activity, Denies diaphoresis, Denies dyspnea and Denies dyspnea on exertion Resp Denies cough, Denies dyspnea, Denies dyspnea on exertion and Denies wheezing GI Denies abdominal pain, Denies melena, Denies hematochezia, Denies constipation, Denies diarrhea and Denies loose stools Denies hematuria Musc Denies numbness and Denies tingling Skin/Breast Denies lesions Neuro Denies vertigo, Denies dizziness, Denies numbness and Denies tingling Psych Denies anxiety, Denies depression, Denies homicidal ideation, Denies suicidal ideation and Denies other (substance abuse) Aller/Immun Denies wheezing Physical exam (Primary Care) Vital Signs: Last Vital Signs Pulse 95 12/16/22 16:36 BP 100/68 12/16/22 16:36 Pulse Ox 99 12/16/22 16:36 Oxygen Delivery Method Room Air 12/16/22 16:36 BMI result Body Mass Index 45.5 Tobacco/Smoking Status: Tobacco use Status Tobacco use date assessed 06/03/22 12/16/22 16:32 Patient Tobacco Use Status Never used Tobacco 12/16/22 16:32 e-Cigarette/Vaping Use Never Used 12/16/22 16:32 PHQ-9: PHQ-9 Score PHQ-9: Total score 0 12/16/22 17:05 Depression Screening Interpretation: Negative Thrive Assessment: Date of Thrive Assessment Date Thrive assessed 11/17/22 12/16/22 16:32 Const General: cooperative Nutritional Appearance: obese morbidly obese Orientation/consciousness: patient oriented x3 HENMT Other: ? enlarged thyroid Head: Yes normal to inspection, Yes normocephalic and Yes atraumatic Ears: TM's normal bilaterally Eyes General: appearance normal, both eyes and all related structures Alignment and Position: alignment normal and position normal Neck Neck: Yes normal visual inspection and Yes no lymphadenopathy Thyroid: Thyroid normal Resp Effort & Inspection: normal respiratory effort Auscultation: clear to auscultation bilaterally Cardio Rate: regular rate Rhythm: regular rhythm Heart sounds: S1 normal heart sound present, S2 normal heart sound present and no murmurs GI Palpation (GI): Soft to palpation and nontender Auscultation: normal bowel sounds Skin Rashes: no rashes Neuro General: patient oriented x3, moves all extremities, no focal motor deficits and deep tendon reflexes 2+ bilaterally Romberg Test: Negative Psych Appearance: grossly normal Mental Status: mental status grossly normal Speech and movement: Normal speech and movement present Affect: normal affect Attitude: cooperative Thought process: Normal thought process present Thought content: Normal thought content present Insight: Good insight present (Psych) Judgement: Good judgement present (Psych) Office Procedures Flu Questionnaire Does the patient have a severe egg allergy?: No Does the patient have severe life threatening allergies?: No Does the patient have a fever or illness today?: No Has the patient ever had Guillain-Charl[place] Syndrome?: No Has the patient ever had any past reaction to a flu shot?: No Immunizations flu vacc [id number] 6mos up(PF) 60 mcg(15 mcgx4)/0.5 mL IM syringe Performing Provider: JC Hamlin Performing Location: [facility] Administered by: Jennifer Blackman CMA on 12/16/22 17:05 Dose Route Admin Location Dispensed Lot Number Expiration Date 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 0.5 mL IM Right Deltoid 0.5 mL [id number] 08/21/23 [id number] [employer] VIS Given Date VIS Provided VIS Publication Date 12/16/22 Single Vaccine 20 Eligibility Eligibility Date Funding Source Not [facility] Eligible 12/16/22 Private Assessment and Plan Assessment & Plan (1) Physical exam: Code(s): Z00.00 - Encounter for general adult medical examination without abnormal findings (2) 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 Panel Fast Today Z00.00 - Encounter for general adult medical examination without abnormal findings TSH reflex Free T4 Today Z00.00 - Encounter for general adult medical examination without abnormal findings Medications: Discontinued olmesartan-hydrochlorothiazide 20-12.5 mg Discontinued Reason: Doctor's Order 1 tab PO DAILY 90 days 90 tabs 0RF Coding Level of Care Code Est Pt Prev Care 18-39y(66368) Diagnoses Physical exam Z00.00 Thyromegaly E01.0 Additional Codes ATIF-7 Assessment Billing - ATIF-7 Assessment Tool: ATIF-7 Assessment 54726 ([id number])
[2022-12-16 16:36] VITALS: BP 100/68; PULSE 95; O2SAT 99; BMI 45.5
== END 2022-12-16 17:31 | disposition home or self-care (01) ==
PROVIDERS: Visit Provider Nurse Practitioner Family
DX: Z00.00 Encounter for general adult medical examination without abnormal findings (principal); E01.0 Iodine-deficiency related diffuse (endemic) goiter; Z23 Encounter for immunization
CPT/HCPCS: 90471; 90686; 99395

== ENCOUNTER 2022-12-27 16:32 | Outpatient (AMB) | payer OTHER, SELFPAY ==
--- NOTE | 2022-12-27 16:34 | MHC.OFFVISWM ---
Intake VS Expanded 12/27/22 16:42 BP 140/65 H Blood Pressure Location Rt brachial Blood Pressure Position Sitting Pulse 94 Pulse Source Pulse Oximeter Temp 97.8 F Temperature Source Temporal Artery Scan Pulse Oximetry 100 Oxygen Delivery Method Room Air Height 5 ft 4 in Weight 246 lb 3.2 oz BMI 42.3 Body Fat % 45.1 Body Fat Mass 110.8 Fat Free Mass 135.2 Visceral Fat Rating 12.0 Body Water % 39.4 Body Water Mass 97.0 Muscle Mass/Score 128.4 Basal Metabolic Rate/Score 1,918 Intake Visit Reasons: (OV) PO LSG 11/16/22 Allergies ENVIRONMENTAL Allergy (Intermediate, Uncoded 12/16/22 16:36) RUNNY NOSE, ASTHMA FLARE UP Medication List - Last Reconciled 12/27/22 by Caryn Garibay PA-C albuterol sulfate 90 mcg/actuation (ProAir HFA) 2 puffs inhalation Q4-6H PRN albuterol sulfate 2.5 mg (3 mL) inhalation Q4-6H PRN fexofenadine (Chasidy Allergy) 180 mg PO DAILY fluticasone propion-salmeterol 250-50 mcg/dose (Advair Diskus) 1 ea inhalation BID ipratropium bromide 2.5 mL inhalation Q6H PRN ipratropium-albuterol 0.5 mg-3 mg(2.5 mg base)/3 mL 3 mL inhalation Q6H PRN levonorg-eth estrad triphasic 50-30 (6)/75-40 (5)/125-30(10) 1 tab PO DAILY 30 days montelukast 10 mg PO BEDTIME pantoprazole 40 mg PO DAILY HPI HPI Comments History of Present Illness Details Pt is now 6 weeks s/p LSG with DR Manzano 11/16/22. 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 No nausea, emesis, abd pain or reflux. She feels physically, had recent in her family. Meal plan: 9:30 - Celebrate 4:1 2 scoops with UAM. - over 2 hours 2pm - same shake 6pm - Isopure 1/2 scoop with 8 oz water - over 2 hours Pt is getting 60 grams of protein per day. Exercise - was doing well, but not much this week. Has treadmill at home - hates it. [facility] Medical History Fatty liver Anxiety Murmur HTN (hypertension) Chest pain Morbid obesity Asthma COVID-19 COPD (chronic obstructive pulmonary disease) Allergic rhinitis TISHA on CPAP Obesity (BMI 30-39.9) Surgical History S/P laparoscopic sleeve gastrectomy Hx of sinus surgery History of loop electrical excision procedure (LEEP) History of carpal tunnel surgery Family History Father HTN (hypertension) Mother HTN (hypertension) Maternal Grandmother Breast cancer Social History Household Members: None Housing: Apartment Are you a primary clinical manager home care to a significant other at home: No Do you presently have visiting nurse or other home services: No Alcohol intake: current Alcohol intake frequency: does not drink Patient Tobacco Use Status: Never used Tobacco e-Cigarette/Vaping Use: Never Used Second Hand Smoke Exposure: No service: No Current occupational status: employed Current occupation: [employer] Current occupational exposures/hazards: No Gender identity: Female Cognitive needs: No Hearing needs: No Vision needs: No Female Reproductive History Menstrual Age of Menarche: 17 Physical Exam GI Inspection: Yes incision (well healed scar) Palpation (GI): Soft to palpation, nontender and no guarding Assessment & Plan Assessment & Plan (1) S/P laparoscopic sleeve gastrectomy: Code(s): Z98.84 - Bariatric surgery status Plan: now 6 weeks post op, TBWL is 52.2 lbs Meal plan change - full scoop Isopure for last shake. Pt wants to stick with this meal plan for now. Exercise - 5 d/ week, 2000 calories, choices are: Likes to walk outside - 300 calories 2 miles 18 minute mile Treadmill - speed 3.3 speed, incline moderate - 400 calores LS videos 3 miles 45 minutes - 400 calories TBP - 30 minute Next appt iwthme in 4 weeks, contineu to send me weekly text with weights and questions (2) HTN (hypertension): Code(s): I10 - Essential (primary) hypertension (3) COPD (chronic obstructive pulmonary disease): Comment: She has combination of bronchial asthma/COPD. Remains well controlled with the use of Advair 250-51 inhalation b.i.d.. And use of ipratropium -albuterol solution in the nebulizer Q 4-6 hours p.r.n. Code(s): J44.9 - Chronic obstructive pulmonary disease, unspecified (4) TISHA on CPAP: Comment: Patient is a very regular user of CPAP. . CPAP is well treated Commended for good compliance and encouraged to keep on using CPAP regularly , pressure setting is 6-16 cm. . Uses fullface mask Code(s): G47.33 - Obstructive sleep apnea (adult) (pediatric); Z99.89 - Dependence on other enabling machines and devices Coding Level of Care Code Global (28271) Diagnoses S/P laparoscopic sleeve gastrectomy Z98.84 HTN (hypertension) I10 COPD (chronic obstructive pulmonary disease) J44.9 TISHA on CPAP G47.33; Z99.89
[2022-12-27 16:42] VITALS: BP 140/65; PULSE 94; TEMP 36.6; O2SAT 100; BMI 42.3
== END 2022-12-27 17:10 | disposition home or self-care (01) ==
PROVIDERS: PCP Nurse Practitioner Family; Visit Provider Physician Assistant
DX: Z98.84 Bariatric surgery status (principal); I10 Essential (primary) hypertension; J44.9 Chronic obstructive pulmonary disease, unspecified; G47.33 Obstructive sleep apnea (adult) (pediatric); Z99.89 Dependence on other enabling machines and devices
CPT/HCPCS: 99024

== ENCOUNTER → 2022-12-27 16:32 | Outpatient (BNVA) | payer OTHER, SELFPAY | PROVIDERS: PCP Nurse Practitioner Family; Visit Provider Physician Assistant ==

== ENCOUNTER 2023-01-11 08:43 | Outpatient (REF) | payer OTHER, SELFPAY ==
[2023-01-11 09:12] LABS: MANUAL DIFF FLAG NO
[2023-01-11 09:37] LABS: Basophils Percent Auto 0.3 % (0-2); Eosinophils Absolute Auto 0.2 X10*3/uL (0.0-0.4); Eosinophils Percent Auto 2.8 % (0-4); Hemoglobin 11.1 g/dl (12.0-16.0); Imm Gran Abs Auto 0.02 X10*3/uL (0.00-0.03); Imm Gran Pct Auto 0.3 % (0.0-0.4); Lymphocytes Absolute Auto 1.6 X10*3/uL (1.2-4.9); Mean Corpuscular HGB Conc 31.7 g/dl (31.0-35.0); Mean Corpuscular Volume 91.4 fL (80.0-98.0); Mean Platelet Volume 10.6 fL (9.4-12.3); Monocytes Absolute Auto 0.4 X10*3/uL (0.1-1.2); Monocytes Percent Auto 6.6 % (2-11); Neutrophils Absolute Auto 4.2 x10*3/uL (2.0-8.3); Platelet Count 370 X10*3/uL (160-400); Red Blood Count 3.83 X10*6/uL (4.20-5.50); Red Cell Distribution Width 14.6 % (11.0-16.0); White Blood Count 6.5 X10*3/uL (4.8-10.8)
[2023-01-11 09:44] LABS: Appearance Urine Clear; Color Urine Yellow; Glucose Urine UA Negative (Negative); Leukocyte Esterase Urine Trace (Negative); Nitrite Urine Negative (Negative); PH 6.5 (5.0-9.0); Specific Gravity - Urine 1.025 (1.005-1.025); UMIC TRIGGER UACC YES; Urine Blood Negative (Negative); Urine Ketones 80 mg/dL (Negative); Urine Protein Negative (Neg-Trace)
[2023-01-11 10:02] LABS: Alanine Aminotransferase 29 U/L (0-31); Albumin Level 3.8 g/dL (3.5-5.0); Alkaline Phosphatase 63 U/L (39-117); Anion Gap 12 (12-20); Aspartate Amino Transferase 19 U/L (5-31); Bilirubin Total 0.4 mg/dL (0.0-1.0); Blood Urea Nitrogen 5 mg/dL (9-16); Carbon Dioxide 27 mmol/L (22-29); Chloride 105 mmol/L (96-108); Cholesterol 178 mg/dL (<200); Estimated Glomerular Filt Rate > 60; Glucose Fasting 80 mg/dL (60-99); HDL Cholesterol 45 mg/dL (>40); LDL Cholesterol Calculated 107 mg/dL (<100); Potassium 3.3 mmol/L (3.3-5.1); Sodium 141 mmol/L (135-145); Total Protein 6.6 g/dL (6.5-8.0); Triglycerides 134 mg/dL (<150)
[2023-01-11 10:10] LABS: Bacteria Urine None Seen (None Seen); Hyaline Casts Urine 0-2 /LPF (0-2); WBC Urine 0-5 /HPF (0-5)
[2023-01-11 10:23] LABS: TSH reflex Free T4 1.93 uIU/mL (0.32-4.0)
== END 2023-01-11 08:44 | disposition home or self-care (01) ==
LOC: HO.LAB 08:43
PROVIDERS: PCP Nurse Practitioner Family; Visit Provider Nurse Practitioner Family
DX: Z00.00 Encounter for general adult medical examination without abnormal findings (principal); R94.6 Abnormal results of thyroid function studies; E78.5 Hyperlipidemia, unspecified; I10 Essential (primary) hypertension
CPT/HCPCS: 36415; 80053; 80061; 81001; 81003; 84443; 85025

== ENCOUNTER 2023-01-18 13:26 | Outpatient (REF) | payer OTHER, SELFPAY ==
--- NOTE | ~2023-01-18 | US_ITS ---
EXAMINATION: US THYROID CLINICAL INFORMATION: Iodine-deficiency related diffuse (endemic) goiter. COMPARISON: CT soft tissue neck 02/22/2015. Thyroid ultrasound 04/23/2011. TECHNIQUE: Linear transducer grayscale and color Doppler examination with attention to the region of the thyroid. FINDINGS: SIZE: Measurements of the thyroid lobes and nodules are given in sagittal, anteroposterior and transverse dimensions respectively. Right Thyroid Lobe: 4.6 x 1.6 x 1.7 cm, volume 5.8 mL. Previously 4.7 x 1.4 x 1.2 cm, volume 4.1 mL. Parenchyma: The gland echotexture is homogeneous. Thyroid vascularity is normal. Left Thyroid Lobe: 4.6 x 1.0 x 1.6 cm, volume 3.5 mL. Previously 4.7 x 1.4 x 1.1 cm, volume 3.8 mL. Parenchyma: The gland echotexture is homogeneous. Thyroid vascularity is normal. Isthmus: 0.5 cm in maximum AP dimension. Previously 0.3 cm. No suspicious thyroid nodule is seen. NODES: No lymphadenopathy is seen in the tissue surrounding the thyroid gland. US/US thyroid IMPRESSION: No suspicious thyroid nodule identified. ACR TI-RADS RECOMMENDATION REFERENCE: Ultrasound-guided fine-needle aspiration, follow up ultrasound, no further followup. * TR1 (0 point) and TR2 (2 points): No FNA or followup * TR3 (3 points): FNA if more than or equal to 2.5 cm in maximum dimension, follow up ultrasound in 1, 3 and 5 years if 1.5 to 2.4 cm in maximum dimension. * TR4 (4-6 points): FNA if more than or equal to 1.5 cm in maximum dimension, follow up ultrasound in 1, 2, 3 and 5 years if 1 to 1.4 cm in maximum dimension. * TR5 (more than or equal to 7 points): FNA if more than or equal to 1 cm in maximum dimension, follow up ultrasound every year for 5 years if 0.5 to 0.9 cm in maximum dimension. * TR3, TR4 or TR5 nodules that are below the size threshold for follow up receive no followup.
== END 2023-01-18 13:27 | disposition home or self-care (01) ==
LOC: HO.US 13:26
PROVIDERS: PCP Nurse Practitioner Family; Visit Provider Nurse Practitioner Family
DX: E01.0 Iodine-deficiency related diffuse (endemic) goiter (principal)
CPT/HCPCS: 76536; 81025

== ENCOUNTER 2023-01-18 13:55 | Outpatient (AMB) | payer OTHER, SELFPAY ==
--- NOTE | 2023-01-18 13:58 | MHC.OFFVIS ---
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 PFSH Medical History Fatty liver Anxiety Murmur HTN (hypertension) Chest pain Morbid obesity Asthma COVID-19 COPD (chronic obstructive pulmonary disease) Allergic rhinitis TISHA on CPAP Obesity (BMI 30-39.9) Surgical History S/P laparoscopic sleeve gastrectomy Hx of sinus surgery History of loop electrical excision procedure (LEEP) History of carpal tunnel surgery Family History Father HTN (hypertension) Mother HTN (hypertension) Maternal Grandmother Breast cancer Social History Household Members: None Housing: Apartment Are you a primary ambulatory care coordinator to a significant other at home: No Do you presently have visiting nurse or other home services: No Alcohol intake: current Alcohol intake frequency: does not drink Patient Tobacco Use Status: Never used Tobacco e-Cigarette/Vaping Use: Never Used Second Hand Smoke Exposure: No service: No Current occupational status: employed Current occupation: [employer] Current occupational exposures/hazards: No Gender identity: Female Cognitive needs: No Hearing needs: No Vision needs: No Female Reproductive History Menstrual Age of Menarche: 17 Review of Systems Const All systems reviewed & are unremarkable except as noted in HPI and below Physical Exam Vital Signs: Last Vital Signs BP 150/92 H 01/18/23 14:02 BMI result Body Mass Index 42.0 General: Yes no CVA tenderness External Female Exam: normal external appearance and normal appearance of the urethra Speculum Exam - Vagina: normal appearance of the vagina, no lesions and no masses Speculum Exam - Cervix: normal appearance of the cervix, no lesions and no masses Back/Spine/Pelvis Back: no CVA tenderness Results AMB Test Urine AMB Test Urine Negative Last Edit by JANUARY Leiva on 01/18/23 14:29 Assessment & Plan Assessment & Plan (1) Family planning: Code(s): Z30.09 - Encounter for other general counseling and advice on contraception Plan: Discussed with the patient the different options of control including control pills/Nuvaring, DMPA, different types of IUD ?s ( cu vs progesterone) , sterilization. All the pros, cons, risks and benefits of each were discussed with the patient. The patient decided to go ahead with Mirena IUD, so a more detailed discussion was carried on including mechanism of action, risks (infection, uterine perforation, failure with ectopic , septic AB, ovarian cyst and pelvic pain, increased breast cancer risk and others) benefits (efficient contraceptive method, others), GC/CG were taken and Mirena IUD attempted but was unsuccessful, see note. After further discussion different options control, the patient decided to proceed with Nexplanon, so a more detailed discussion re: Nexplanon including mechanism of action, benefits, risks . Instructions were given to use a backup method for contraception till Nexplanon is available and then we will insert it day 1-5 next cycle. (2) Unsuccessful IUD insertion: Code(s): Z53.8 - Procedure and treatment not carried out for other reasons Plan: The patient is presenting for Mirena IUD insertion Urine test was done in the office and was negative; All the contraindications were excluded. The following possible complications were discussed with the patient: Intrauterine , Ectopic , Sepsis, Pelvic Infection, Irregular Bleeding and Amenorrhea, Perforation, Expulsion, Ovarian Cysts, Breast Cancer, The following adverse effects were discussed with the patient: alteration of menstrual bleeding pattern, including: unscheduled uterine bleeding decreased uterine bleeding increased scheduled uterine bleeding female genital tract bleeding ,amenorrhea , genital discharge , vulvovaginitis , breast pain , benign ovarian cyst and associated complications , dysmenorrhea , Gastrointestinal disorders abdominal/pelvic pain, headache/migraine , back pain , acne , depression Alternative options were discussed with the patient including but not limited: control pills, patch, NuvaRing, Depo-medroxyprogesterone acetate, Nexplanon, copper IUD, sterilization, vasectomy, others The procedure was explained in detail to patient , at the end patient signed the informed consent obtained. A no touch technique was used throughout the procedure. A speculum was placed into vagina and cervix was cleaned with betadine). A tenaculum was placed. A plastic sound was advanced through the external and internal os until it reached the fundus of the uterus, the depth was 7 cm. The sound was then withdrawn. The IUD was loaded in a sterile manner and could not be advanced into position. After 2 attempts the patient could not tolerated , the procedure was aborted. Monsel solution was used for hemostasis, which was assured. Orders: Orders AMB HCG Urine Test Today Z32.02 - Encounter for test, result negative Coding Level of Care Code Est Pt Level 3 (13171) Diagnoses Family planning Z30.09 Unsuccessful IUD insertion Z53.8
[2023-01-18 14:02] VITALS: BP 150/92; BMI 42.0
== END 2023-01-18 15:17 | disposition home or self-care (01) ==
LOC: HO.HWS 13:55
PROVIDERS: PCP Nurse Practitioner Family; Visit Provider Obstetrics & Gynecology
DX: Z30.09 Encounter for other general counseling and advice on contraception (principal); Z53.8 Procedure and treatment not carried out for other reasons; Z32.02 Encounter for pregnancy test, result negative
CPT/HCPCS: 99213

== ENCOUNTER 2023-01-18 14:50 | Outpatient (REF) | payer OTHER, SELFPAY ==
[2023-01-19 03:50] LABS: CT PCR NOT DETECTED (Not Detect.); NG PCR NOT DETECTED (Not Detect.)
== END 2023-01-18 14:51 | disposition home or self-care (01) ==
LOC: HO.LNP 14:50
PROVIDERS: Visit Provider Obstetrics & Gynecology
DX: Z20.2 Contact with and (suspected) exposure to infections with a predominantly sexual mode of transmission (principal)
CPT/HCPCS: 0353U

== ENCOUNTER 2023-01-24 11:30 | Outpatient (AMB) | payer OTHER, SELFPAY ==
--- NOTE | 2023-01-24 11:36 | MHC.OFFVISWM ---
Intake VS Expanded 01/24/23 11:41 Height 5 ft 4 in Weight 235 lb 8 oz BMI 40.4 Intake Visit Reasons: VIDEO PO LSG 11/16/22 Allergies ENVIRONMENTAL Allergy (Intermediate, Uncoded 01/18/23 14:02) RUNNY NOSE, ASTHMA FLARE UP Medication List - Last Reconciled 01/24/23 by Caryn Garibay PA-C albuterol sulfate 90 mcg/actuation (ProAir HFA) 2 puffs inhalation Q4-6H PRN albuterol sulfate 2.5 mg (3 mL) inhalation Q4-6H PRN fexofenadine (Chasidy Allergy) 180 mg PO DAILY fluticasone propion-salmeterol 250-50 mcg/dose (Advair Diskus) 1 ea inhalation BID ipratropium bromide 2.5 mL inhalation Q6H PRN ipratropium-albuterol 0.5 mg-3 mg(2.5 mg base)/3 mL 3 mL inhalation Q6H PRN montelukast 10 mg PO BEDTIME 90 days ondansetron HCl 4 mg PO Q8H PRN 48 weeks pantoprazole 40 mg PO DAILY HPI HPI Comments History of Present Illness Details Pt is now 9 weeks s/p LSG. No n/v/abd pain or reflux. Tried OCP's had increase in BP, will have Nexplanaon placed soon. 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 Meal plan: 10 am - 4:1 2 scoops with UAM 2pm- same shake 6pm - 1 oz chicken or 1 egg and 1 oz vegetable 7pm- was supposed to have a third shake, but is too full to have it. Exercise - she injured her knee and having a hard time doing her exercise. Was doing LS 3 mile video. [facility] Medical History Fatty liver Anxiety Murmur HTN (hypertension) Chest pain Morbid obesity Asthma COVID-19 COPD (chronic obstructive pulmonary disease) Allergic rhinitis TISHA on CPAP Obesity (BMI 30-39.9) Surgical History S/P laparoscopic sleeve gastrectomy Hx of sinus surgery History of loop electrical excision procedure (LEEP) History of carpal tunnel surgery Family History Father HTN (hypertension) Mother HTN (hypertension) Maternal Grandmother Breast cancer Social History Household Members: None Housing: Apartment Are you a primary patient care representative to a significant other at home: No Do you presently have visiting nurse or other home services: No Alcohol intake: current Alcohol intake frequency: does not drink Patient Tobacco Use Status: Never used Tobacco e-Cigarette/Vaping Use: Never Used Second Hand Smoke Exposure: No service: No Current occupational status: employed Current occupation: [employer] Current occupational exposures/hazards: No Gender identity: Female Cognitive needs: No Hearing needs: No Vision needs: No Female Reproductive History Menstrual Age of Menarche: 17 Assessment & Plan Assessment & Plan (1) S/P laparoscopic sleeve gastrectomy: Code(s): Z98.84 - Bariatric surgery status Plan: 9 weeks post op doing very well, now averaging 4-5 lbs lost per week. Needs to increase her protein per day. 8:30 am - 4:1 12 pm - 4:1shake 3pm - Isopure shake - 25 grams/sccop 7pm - 1 oz protein - now add fish, 1 oz vegetable Exercise - due to her knee pain on lateral movements and the fact that she likes the videos more than the treadmill will alternate treadmill and LS videos so take strain off of her knee. Next appt with me in 4 weeks, weekly texts. Telehealth Telehealth Location of provider rendering services: practice address Location of patient: address on file Patient Identification confirmed using: Name, : Yes Telehealth method: video Patient verbally consented to treatment: Yes Patient verbally consented to billing insurance company: Yes Patient informed of any privacy concerns related to visit: Yes Coding Level of Care Code Global (41422) Diagnoses S/P laparoscopic sleeve gastrectomy Z98.84
[2023-01-24 11:41] VITALS: BMI 40.4
== END 2023-01-24 12:02 | disposition home or self-care (01) ==
LOC: HO.HBS 11:51
PROVIDERS: PCP Nurse Practitioner Family; Visit Provider Physician Assistant
DX: Z98.84 Bariatric surgery status (principal)
CPT/HCPCS: 99024

== ENCOUNTER → 2023-01-24 11:30 | Outpatient (BNVA) | payer OTHER, SELFPAY | PROVIDERS: PCP Nurse Practitioner Family; Visit Provider Physician Assistant ==

== ENCOUNTER 2023-01-25 13:42 | Outpatient (REF) | payer OTHER, SELFPAY ==
[2023-01-25 14:27] LABS: Urine Cytology See Pathology rpt
[2023-01-25 14:32] LABS: Appearance Urine Clear; Color Urine Yellow; Glucose Urine UA Negative (Negative); Leukocyte Esterase Urine Negative (Negative); Nitrite Urine Negative (Negative); Specific Gravity - Urine 1.025 (1.005-1.025); Urine Blood Negative (Negative); Urine Ketones Trace mg/dL (Negative); Urine Protein Negative (Neg-Trace)
== END 2023-01-25 13:43 | disposition home or self-care (01) ==
LOC: HO.LAB 13:42
PROVIDERS: PCP Nurse Practitioner Family; Visit Provider Nurse Practitioner Family
DX: Z00.00 Encounter for general adult medical examination without abnormal findings (principal); R31.29 Other microscopic hematuria
CPT/HCPCS: 81003; 87086; 88112

== ENCOUNTER 2023-02-10 07:47 | Outpatient (AMB) | payer OTHER, SELFPAY ==
--- NOTE | 2023-02-10 07:50 | A.OFFVIS_ITS ---
Intake Vital Signs 02/10/23 07:59 Height 5 ft 4 in Weight 233 lb 11.04 oz BMI 40.1 Intake Visit Reasons: Nexplanon Insertion Allergies ENVIRONMENTAL Allergy (Intermediate, Uncoded 01/18/23 14:02) RUNNY NOSE, ASTHMA FLARE UP HPI HPI Comments History of Present Illness Details Presenting for Nexplanon insertion PFSH Medical History Fatty liver Anxiety Murmur HTN (hypertension) Chest pain Morbid obesity Asthma COVID-19 COPD (chronic obstructive pulmonary disease) Allergic rhinitis TISHA on CPAP Obesity (BMI 30-39.9) Surgical History S/P laparoscopic sleeve gastrectomy Hx of sinus surgery History of loop electrical excision procedure (LEEP) History of carpal tunnel surgery Family History Father HTN (hypertension) Mother HTN (hypertension) Maternal Grandmother Breast cancer Social History Household Members: None Housing: Apartment Are you a primary director of health care marketing to a significant other at home: No Do you presently have visiting nurse or other home services: No Alcohol intake: current Alcohol intake frequency: does not drink Patient Tobacco Use Status: Never used Tobacco e-Cigarette/Vaping Use: Never Used Second Hand Smoke Exposure: No service: No Current occupational status: employed Current occupation: [employer] Current occupational exposures/hazards: No Gender identity: Female Cognitive needs: No Hearing needs: No Vision needs: No Female Reproductive History Menstrual Age of Menarche: 17 Office Procedures Contraception Insert/Removal Details Details: Preopdx: Requesting Nexplanon insertion Op: Nexplanon insertion Post op dx: same EBL= 10 cc Procedure: After discussing with the patient the risks of the procedure including bleeding, infection, scar tissue formation, , and irregular unpredictable bleeding, Alternative options were discussed with the patient including but not limited: control pills, patch, NuvaRing, Depo-medroxyprogesterone acetate, copper/Progesterone IUD, sterilization, vasectomy, others The patient signed the consent and agreed with the plan; all questions answered. Urine test done in the office was negative Iodine was used to scrub the area. The insertion site was identified, at the inner side of the left upper arm about 9 cm above the medial epicondyle of the humerus. Next Xylocaine 1% was used to anesthetize the insertion area, and then the sterile preloaded disposable NEXPLANON applicator carrying the implant from its blister was removed from its box. With the free hand, the skin around the insertion site was stretched with thumb and index finger, the skin was punctured with the tip of the needle angled about 30 degrees, next the applicator was lowered to a horizontal position. While lifting the skin with the tip of the needle, the needle was slided to its full length. The purple slider was unlocked next by pushing it slightly down. Then the slider was moved fully back until it stopped, the presence of the implant in the patient?s arm was verified. A band aid and a wrap were applied around the arm. Instructions were given to the patient to call if temp>100.4, severe pain or redness at the site of the insertion. The patient was instructed that the date of removal is exactly 3 years from today's date This note was generated with a voice recognition program. Some errors may have been overlooked during the review of this note. Sometimes these errors may affect the content or meaning of a given sentence. [address]6446 - Insertion Office Meds Nexplanon 68 mg subdermal implant Performing Provider: Alex Noriega MD Performing Location: [facility] – [place] [facility] Documented (not given) by: Alex Noriega MD on 02/10/23 08:10 Dose Route Admin Location Dispensed Lot Number Expiration Date [facility] [employer] 1 implant subdermal ea Assessment & Plan Assessment & Plan (1) Nexplanon insertion: Code(s): Z30.017 - Encounter for initial prescription of implantable subdermal contraceptive Plan: Nexplanon inserted, see procedure note Orders: Orders AMB Nexplanon/Implanon Insertion - Patient Supply Today Z30.017 - Encounter for initial prescription of implantable subdermal contraceptive Medications: New Nexplanon (etonogestrel) 1 implant subdermal ONCE 1 ea 0RF NS Z30.017 - Encounter for initial prescription of implantable subdermal contraceptive Coding Level of Care Code Procedure Only Diagnoses Nexplanon insertion Z30.017 CPT Codes Details - Contraception: 73141 - Insertion ([id number])
[2023-02-10 07:59] VITALS: BMI 40.1
== END 2023-02-10 08:23 | disposition home or self-care (01) ==
PROVIDERS: PCP Nurse Practitioner Family; Visit Provider Obstetrics & Gynecology
DX: Z30.017 Encounter for initial prescription of implantable subdermal contraceptive (principal); Z32.02 Encounter for pregnancy test, result negative
CPT/HCPCS: 11981

== ENCOUNTER → 2023-02-10 07:47 | Outpatient (BNVA) | payer OTHER, SELFPAY | PROVIDERS: PCP Nurse Practitioner Family; Visit Provider Obstetrics & Gynecology | DX: Z30.017 Encounter for initial prescription of implantable subdermal contraceptive (principal) | CPT/HCPCS: 11981; 81025; J7307 ==

== ENCOUNTER 2023-02-28 11:46 | Outpatient (AMB) | payer OTHER, SELFPAY ==
--- NOTE | 2023-02-28 11:27 | MHC.OFFVISWM ---
Intake VS Expanded 02/28/23 11:36 Height 5 ft 4 in Weight 219 lb 4 oz BMI 37.6 Intake Visit Reasons: VIDEO PO LSG 11/16/22 Allergies ENVIRONMENTAL Allergy (Intermediate, Uncoded 01/18/23 14:02) RUNNY NOSE, ASTHMA FLARE UP Medication List - Last Reconciled 02/28/23 by Caryn Garibay PA-C albuterol sulfate 90 mcg/actuation (ProAir HFA) 2 puffs inhalation Q4-6H PRN amlodipine 2.5 mg PO DAILY fexofenadine (Chasidy Allergy) 180 mg PO DAILY fluticasone propion-salmeterol 250-50 mcg/dose (Advair Diskus) 1 ea inhalation BID montelukast 10 mg PO BEDTIME 90 days HPI HPI Comments History of Present Illness Details Pt is now 3+ months s/p LSG. UPHOLSTERY SEWER weight of 298.4, TBWL is 76 lbs or 25.5%. Takes 1/2 amlodipine prn, will send me her BP later. Does not feel she needs any changes to meal plan now. Meal plan: 3 shakes at 9/12 and 3pm - 2 4:1 shakes and 1 Isopure. 6pm - 4 forks chicken and 2 forks vegetables (raw and cooked) Exercise - LS 3 miles video 2d/ week. Alternating TBP 3 d/wk PFSH Medical History Fatty liver Anxiety Murmur HTN (hypertension) Chest pain Morbid obesity Asthma COVID-19 COPD (chronic obstructive pulmonary disease) Allergic rhinitis TISHA on CPAP Obesity (BMI 30-39.9) Surgical History S/P laparoscopic sleeve gastrectomy Hx of sinus surgery History of loop electrical excision procedure (LEEP) History of carpal tunnel surgery Family History Father HTN (hypertension) Mother HTN (hypertension) Maternal Grandmother Breast cancer Social History Household Members: None Housing: Apartment Are you a primary day care aide to a significant other at home: No Do you presently have visiting nurse or other home services: No Alcohol intake: current Alcohol intake frequency: does not drink Patient Tobacco Use Status: Never used Tobacco e-Cigarette/Vaping Use: Never Used Second Hand Smoke Exposure: No service: No Current occupational status: employed Current occupation: [employer] Current occupational exposures/hazards: No Gender identity: Female Cognitive needs: No Hearing needs: No Vision needs: No Female Reproductive History Menstrual Age of Menarche: 17 Assessment & Plan Assessment & Plan (1) Obesity: Code(s): E66.9 - Obesity, unspecified Plan: #= months post op LSG doing great with 4 lbs weight loss per week 2 4:1 shakes 1/2 shale or bar 4 frks protein - any lean meat or fish/seafood and 2 forks veetables Exercise - continue present routien - will let me know when it gets easy for her and I will increase intensity. Continue to send weekly weights. Next aptp 6 weeks with me. Patient is still morbidly obese and is not considered stable at this time. I spent 30 minutes in total speaking with the patient via video conference counseling , reviewing records and charting in patients chart. . (2) S/P laparoscopic sleeve gastrectomy: Code(s): Z98.84 - Bariatric surgery status Plan: see above Telehealth Telehealth Location of provider rendering services: practice address Location of patient: address on file Patient Identification confirmed using: Name, : Yes Telehealth method: video Patient verbally consented to treatment: Yes Patient verbally consented to billing insurance company: Yes Coding Level of Care Code Tele Est Pt Level 4 (19478) Diagnoses Obesity E66.9 S/P laparoscopic sleeve gastrectomy Z98.84
[2023-02-28 11:36] VITALS: BMI 37.6
== END 2023-02-28 11:51 | disposition home or self-care (01) ==
LOC: HO.HBS 11:46
PROVIDERS: PCP Nurse Practitioner Family; Visit Provider Physician Assistant
DX: E66.9 Obesity, unspecified (principal); Z98.84 Bariatric surgery status
CPT/HCPCS: 99214

== ENCOUNTER → 2023-02-28 11:46 | Outpatient (BNVA) | payer OTHER, SELFPAY | PROVIDERS: PCP Nurse Practitioner Family; Visit Provider Physician Assistant ==

== ENCOUNTER 2023-03-21 07:36 | Outpatient (AMB) | payer OTHER, SELFPAY ==
--- NOTE | 2023-03-21 07:41 | MHC.OFFVIS ---
Intake Vital Signs 03/21/23 07:43 Height 5 ft 4 in Weight 218 lb 4.122 oz BMI 37.5 BP 118/72 Intake Visit Reasons: Nexplanon Check Allergies ENVIRONMENTAL Allergy (Intermediate, Uncoded 01/18/23 14:02) RUNNY NOSE, ASTHMA FLARE UP HPI HPI Comments History of Present Illness Details Presenting for weeks post Nexplanon insertion with no complaints. The insertion site well healed, the Nexplanon cisco is in place, no impact on her weight loss and no reported abnormal uterine bleeding PFSH Medical History Fatty liver Anxiety Murmur HTN (hypertension) Chest pain Morbid obesity Asthma COVID-19 COPD (chronic obstructive pulmonary disease) Allergic rhinitis TISHA on CPAP Obesity (BMI 30-39.9) Surgical History S/P laparoscopic sleeve gastrectomy Hx of sinus surgery History of loop electrical excision procedure (LEEP) History of carpal tunnel surgery Family History Father HTN (hypertension) Mother HTN (hypertension) Maternal Grandmother Breast cancer Social History Household Members: None Housing: Apartment Are you a primary managed care specialist to a significant other at home: No Do you presently have visiting nurse or other home services: No Alcohol intake: current Alcohol intake frequency: does not drink Patient Tobacco Use Status: Never used Tobacco e-Cigarette/Vaping Use: Never Used Second Hand Smoke Exposure: No service: No Current occupational status: employed Current occupation: [employer] Current occupational exposures/hazards: No Gender identity: Female Cognitive needs: No Hearing needs: No Vision needs: No Female Reproductive History Menstrual Age of Menarche: 17 Physical Exam Vital Signs: Last Vital Signs BP 118/72 03/21/23 07:43 BMI result Body Mass Index 37.5 Skin Other: Left arm Nexplanon insert site well-healed, Nexplanon palpated in place Assessment & Plan Assessment & Plan (1) Contraceptive management: Code(s): Z30.9 - Encounter for contraceptive management, unspecified Plan: Discussed with the patient the finding on physical exam, Nexplanon cisco in place and insertion site well healed, instructions given to patient to call in case any side effects occur and/or abnormal uterine bleeding or any other concern. All questions answered, the patient verbalized understanding Coding Level of Care Code Est Pt Level 3 (86966) Diagnoses Contraceptive management Z30.9
[2023-03-21 07:43] VITALS: BP 118/72; BMI 37.5
== END 2023-03-21 07:47 | disposition home or self-care (01) ==
PROVIDERS: PCP Nurse Practitioner Family; Visit Provider Obstetrics & Gynecology
DX: Z30.9 Encounter for contraceptive management, unspecified (principal)
CPT/HCPCS: 99213

== ENCOUNTER → 2023-03-21 07:36 | Outpatient (BNVA) | payer OTHER, SELFPAY | PROVIDERS: PCP Nurse Practitioner Family; Visit Provider Obstetrics & Gynecology ==

== ENCOUNTER 2023-04-13 13:30 | Outpatient (AMB) | payer OTHER, SELFPAY ==
[2023-04-13 12:46] VITALS: BMI 35.9
--- NOTE | 2023-04-13 12:46 | A.OFFVIS_ITS ---
Intake VS Expanded 04/13/23 12:46 Height 5 ft 4 in Weight 209 lb 2 oz BMI 35.9 Intake Visit Reasons: VIDEO PO LSG 11/16/22 Allergies ENVIRONMENTAL Allergy (Intermediate, Uncoded 01/18/23 14:02) RUNNY NOSE, ASTHMA FLARE UP Medication List - Last Reconciled 04/13/23 by Caryn Garibay PA-C albuterol sulfate 90 mcg/actuation (ProAir HFA) 2 puffs inhalation Q4-6H PRN amlodipine 2.5 mg PO DAILY PRN Breo Ellipta 100-25 mcg/dose (fluticasone furoate-vilanterol) 1 inh inhalation DAILY NS fexofenadine (Chasidy Allergy) 180 mg PO DAILY montelukast 10 mg PO BEDTIME 90 days HPI HPI Comments History of Present Illness Details Pt is now 5 months s/p LSG, EM[employer]MENT [employer] weight of 298.4 lbs, TBWL is 89.2 lbs or 29.9%. No n/v, abd pain or reflux. Exercise - 5d/ week treadmill - speed 3.1, changes incline for 40 minutes muñoz over 400 calories. Meal plan: does not feel she needs any changes 9am 4:1 2 scoops shakes 11 - 12 pm- bar 1:30 second shake dinner 2 oz and 1 oz vegetables cooked mostly. [facility] Medical History Fatty liver Anxiety Murmur HTN (hypertension) Chest pain Morbid obesity Asthma COVID-19 COPD (chronic obstructive pulmonary disease) Allergic rhinitis TISHA on CPAP Obesity (BMI 30-39.9) Surgical History S/P laparoscopic sleeve gastrectomy Hx of sinus surgery History of loop electrical excision procedure (LEEP) History of carpal tunnel surgery Family History Father HTN (hypertension) Mother HTN (hypertension) Maternal Grandmother Breast cancer Social History Household Members: None Housing: Apartment Are you a primary neonatal intensive care nurse to a significant other at home: No Do you presently have visiting nurse or other home services: No Alcohol intake: current Alcohol intake frequency: does not drink Patient Tobacco Use Status: Never used Tobacco e-Cigarette/Vaping Use: Never Used Second Hand Smoke Exposure: No service: No Current occupational status: employed Current occupation: [employer] Current occupational exposures/hazards: No Gender identity: Female Cognitive needs: No Hearing needs: No Vision needs: No Female Reproductive History Menstrual Age of Menarche: 17 Assessment & Plan Assessment & Plan (1) Obesity: Code(s): E66.9 - Obesity, unspecified Plan: Now 5 months post op , Nexplanon may be affecting her weight loss. Exercise - goal 2,000 raad /week Add ST workout with cardio challenges for 7 d/w tribal No change to meal plan other than can add 1 oz fruit with dinner prn. Next appt at 6 months with me, post op labs ordered. Patient is still obese and is not considered stable at this time. I spent 30 minutes in total speaking with the patient via video conference counseling , reviewing records and charting in patients chart. . (2) S/P laparoscopic sleeve gastrectomy: Code(s): Z98.84 - Bariatric surgery status Plan see above Orders: Orders Hemoglobin A1c Today E34.9 - Endocrine disorder, unspecified, E66.9 - Obesity, unspecified, K76.0 - Fatty (change of) liver, not elsewhere classified, Z98.84 - Bariatric surgery status Zinc Today E34.9 - Endocrine disorder, unspecified, E66.9 - Obesity, unspecified, K76.0 - Fatty (change of) liver, not elsewhere classified, Z98.84 - Bariatric surgery status C Reactive Protein Today E34.9 - Endocrine disorder, unspecified, E66.9 - Obesity, unspecified, K76.0 - Fatty (change of) liver, not elsewhere classified, Z98.84 - Bariatric surgery status Vitamin B1 Today E34.9 - Endocrine disorder, unspecified, E66.9 - Obesity, unspecified, K76.0 - Fatty (change of) liver, not elsewhere classified, Z98.84 - Bariatric surgery status Vitamin A Today E34.9 - Endocrine disorder, unspecified, E66.9 - Obesity, unspecified, K76.0 - Fatty (change of) liver, not elsewhere classified, Z98.84 - Bariatric surgery status Vitamin D 25-OH Total Today E34.9 - Endocrine disorder, unspecified, E66.9 - Obesity, unspecified, K76.0 - Fatty (change of) liver, not elsewhere classified, Z98.84 - Bariatric surgery status Insulin Today E34.9 - Endocrine disorder, unspecified, E66.9 - Obesity, un specified, K76.0 - Fatty (change of) liver, not elsewhere classified, Z98.84 - Bariatric surgery status Complete Blood Count Auto Diff Today E34.9 - Endocrine disorder, unspecified, E66.9 - Obesity, unspecified, K76.0 - Fatty (change of) liver, not elsewhere classified, Z98.84 - Bariatric surgery status Lipid Panel Today E34.9 - Endocrine disorder, unspecified, E66.9 - Obesity, unspecified, K76.0 - Fatty (change of) liver, not elsewhere classified, Z98.84 - Bariatric surgery status IRON PROFILE Today E34.9 - Endocrine disorder, unspecified, E66.9 - Obesity, unspecified, K76.0 - Fatty (change of) liver, not elsewhere classified, Z98.84 - Bariatric surgery status Comprehensive Met. Panel Today E34.9 - Endocrine disorder, unspecified, E66.9 - Obesity, unspecified, K76.0 - Fatty (change of) liver, not elsewhere classified, Z98.84 - Bariatric surgery status Vitamin B12 and Folate Today E34.9 - Endocrine disorder, unspecified, E66.9 - Obesity, unspecified, K76.0 - Fatty (change of) liver, not elsewhere classified, Z98.84 - Bariatric surgery status TSH reflex Free T4 Today E34.9 - Endocrine disorder, unspecified, E66.9 - Obesity, unspecified, K76.0 - Fatty (change of) liver, not elsewhere classified, Z98.84 - Bariatric surgery status Ferritin Today E34.9 - Endocrine disorder, unspecified, E66.9 - Obesity, unspecified, K76.0 - Fatty (change of) liver, not elsewhere classified, Z98.84 - Bariatric surgery status Telehealth Telehealth Location of provider rendering services: practice address Location of patient: address on file Patient Identification confirmed using: Name, : Yes Telehealth method: video Patient verbally consented to treatment: Yes Patient verbally consented to billing insurance company: Yes Patient informed of any privacy concerns related to visit: Yes Coding Level of Care Code Tele Est Pt Level 4 (04255) Diagnoses Obesity E66.9 S/P laparoscopic sleeve gastrectomy Z98.84
== END 2023-04-13 14:09 | disposition home or self-care (01) ==
LOC: HO.HBS 13:43
PROVIDERS: PCP Nurse Practitioner Family; Visit Provider Physician Assistant
DX: E66.9 Obesity, unspecified (principal); Z98.84 Bariatric surgery status
CPT/HCPCS: 99214

== ENCOUNTER → 2023-04-13 13:30 | Outpatient (BNVA) | payer OTHER, SELFPAY | PROVIDERS: PCP Nurse Practitioner Family; Visit Provider Physician Assistant ==

== ENCOUNTER 2023-05-10 13:41 | Outpatient (REF) | payer OTHER, SELFPAY ==
[2023-05-10 13:53] LABS: MANUAL DIFF FLAG NO
[2023-05-10 14:38] LABS: Basophils Absolute Auto 0.1 X10*3/uL (0.0-0.2); Basophils Percent Auto 0.7 % (0-2); Eosinophils Absolute Auto 0.4 X10*3/uL (0.0-0.4); Eosinophils Percent Auto 4.5 % (0-4); Hematocrit 41.4 % (37.0-47.0); Hemoglobin 13.3 g/dl (12.0-16.0); Imm Gran Abs Auto 0.02 X10*3/uL (0.00-0.03); Imm Gran Pct Auto 0.2 % (0.0-0.4); Lymphocytes Absolute Auto 1.8 X10*3/uL (1.2-4.9); Lymphocytes Percent Auto 22.1 % (20-40); Mean Corpuscular HGB Conc 32.1 g/dl (31.0-35.0); Mean Corpuscular Volume 93.2 fL (80.0-98.0); Mean Platelet Volume 9.8 fL (9.4-12.3); Monocytes Absolute Auto 0.6 X10*3/uL (0.1-1.2); Neutrophils Absolute Auto 5.2 x10*3/uL (2.0-8.3); Neutrophils Percent Auto 64.5 % (45-73); Platelet Count 485 X10*3/uL (160-400); Red Blood Count 4.44 X10*6/uL (4.20-5.50); Red Cell Distribution Width 14.5 % (11.0-16.0)
[2023-05-10 14:51] LABS: Estimated Average Glucose 88 mg/dL; Hemoglobin A1c % 4.7 % (<6.0)
[2023-05-10 15:18] LABS: Alanine Aminotransferase 95 U/L (0-31); Albumin Level 4.2 g/dL (3.5-5.0); Alkaline Phosphatase 82 U/L (39-117); Anion Gap 13 (12-20); Aspartate Amino Transferase 79 U/L (5-31); Bilirubin Total 0.5 mg/dL (0.0-1.0); Blood Urea Nitrogen 14 mg/dL (9-16); C Reactive Protein 1.34 mg/dL (< or = 0.50); Calcium 9.7 mg/dL (8.4-10.2); Carbon Dioxide 26 mmol/L (22-29); Chloride 105 mmol/L (96-108); Cholesterol 191 mg/dL (<200); Estimated Glomerular Filt Rate > 60; Glucose Random 88 mg/dL (60-115); HDL Cholesterol 65 mg/dL (>40); Iron 59 mcg/dL (30-160); LDL Cholesterol Calculated 104 mg/dL (<100); Percent Iron Saturation 20 % (15-50); Potassium 3.8 mmol/L (3.3-5.1); Sodium 140 mmol/L (135-145); Total Iron Binding Capacity 288 mcg/dL (228-428); Total Protein 7.3 g/dL (6.5-8.0); Triglycerides 110 mg/dL (<150); Unsaturated Iron Binding 229 ug/dL
[2023-05-10 15:26] LABS: Ferritin 148 ng/mL (10-122); Insulin 20 uU/mL (2-29); TSH reflex Free T4 1.29 uIU/mL (0.32-4.0); Vitamin D 25-OH Total 57.4 ng/mL (>30)
[2023-05-10 15:42] LABS: Folate 13.8 ng/mL (> or = 4.0); Vitamin B12 761 pg/mL (200-900)
[2023-05-13 06:13] LABS: Zinc 69 mcg/dL (60-130)
[2023-05-14 16:18] LABS: Vitamin A 56 mcg/dL (38-98)
[2023-05-15 10:03] LABS: Vitamin B1 33 nmol/L (8-30)
== END 2023-05-10 13:42 | disposition home or self-care (01) ==
LOC: HO.LAB 13:41
PROVIDERS: PCP Nurse Practitioner Family; Visit Provider Physician Assistant
DX: E66.9 Obesity, unspecified (principal); K76.0 Fatty (change of) liver, not elsewhere classified; E34.9 Endocrine disorder, unspecified; Z98.84 Bariatric surgery status
CPT/HCPCS: 36415; 80053; 80061; 82306; 82607; 82728; 82746; 83036; 83525; 83540; 84425; 84443; 84590; 84630; 85025; 86140

== ENCOUNTER 2023-05-10 13:54 | Outpatient (AMB) | payer OTHER, SELFPAY ==
[2023-05-10 14:07] VITALS: BP 120/72; PULSE 82; O2SAT 97; BMI 35.9
--- NOTE | 2023-05-10 14:07 | MHC.OFFVIS ---
Intake Vital Signs 05/10/23 14:07 Height 5 ft 4 in Weight 209 lb 7.026 oz BMI 35.9 BP 120/72 Blood Pressure Location Lt brachial Position Sitting Pulse 82 Pulse Source Pulse Oximeter Pulse Oximetry (%) 97 Oxygen Delivery Method Room Air Intake Visit Reasons: asthma Intake Note: pt is here for follow up and is going well, had weight loss surgery and is feeling great. Documentation Designer Required: No Allergies ENVIRONMENTAL Allergy (Intermediate, Uncoded 05/10/23 14:17) RUNNY NOSE, ASTHMA FLARE UP Medication List - Last Reconciled 05/10/23 by Lisa Wilde MD albuterol sulfate 90 mcg/actuation (ProAir HFA) 2 puffs inhalation Q4-6H PRN amlodipine 2.5 mg PO DAILY PRN Breo Ellipta 100-25 mcg/dose (fluticasone furoate-vilanterol) 1 inh inhalation DAILY NS fexofenadine (Chasidy Allergy) 180 mg PO DAILY montelukast 10 mg PO BEDTIME 90 days Do you need a note to return to daycare/school/sports/work: No HPI asthma HPI Details LYUBOV IS 38 YEARS OLD FEMALE WITH MORBID OBESITY, ,DIAGNOSIS OF OBSTRUCTIVE SLEEP APNEA AND ALSO BRONCHIAL ASTHMA. SHE HAS BEEN USING CPAP VERY REGULARLY, SLEEPING GOOD FOR 7-8 HOURS EVERY NIGHT. SHE LOVES HER CPAP DEVICE. SHE HAD BARIATRIC SURGERY, (GASTRIC SLEEVE ) AND HAS LOST 70 LB OF WEIGHT SINCE HER LAST VISIT IN 2022. SHE IS VERY HAPPY ABOUT THIS, SHE IS STILL MODERATELY OBESE WITH BMI OF 36, AND STILL NEEDS TO CONTINUE USING THE CPAP. BREATHING HAS BEEN STABLE SHE DOES NOT HAVE ATTACKS OF WHEEZING, AND IS LESS SHORT OF BREATH ON WALKING AROUND. [facility] Medical History Fatty liver Anxiety Murmur HTN (hypertension) Chest pain Morbid obesity Asthma COVID-19 COPD (chronic obstructive pulmonary disease) Allergic rhinitis TISHA on CPAP Obesity (BMI 30-39.9) Surgical History S/P laparoscopic sleeve gastrectomy Hx of sinus surgery History of loop electrical excision procedure (LEEP) History of carpal tunnel surgery Family History Father HTN (hypertension) Mother HTN (hypertension) Maternal Grandmother Breast cancer Social History Household Members: None Housing: Apartment Are you a primary palliative care specialist to a significant other at home: No Do you presently have visiting nurse or other home services: No Alcohol intake: current Alcohol intake frequency: does not drink Patient Tobacco Use Status: Never used Tobacco e-Cigarette/Vaping Use: Never Used Second Hand Smoke Exposure: No service: No Current occupational status: employed Current occupation: [employer] Current occupational exposures/hazards: No Gender identity: Female Cognitive needs: No Hearing needs: No Vision needs: No Female Reproductive History Menstrual Age of Menarche: 17 Review of Systems Const All systems reviewed & are unremarkable except as noted in HPI and below Eyes Reports no additional complaints ENT Reports no additional complaints Card Reports chest pain (It is more like muscular, discomfort across the anterior chest), Denies irregular heart rhythm and Denies leg edema Resp Details: She has her usual mild intermittent cough with some wheezing Reports cough (mild) and Reports wheezing (only occasional ) GI Reports no additional complaints Reports no additional complaints Musc Reports no additional complaints Skin/Breast Reports system reviewed and no additional complaints, except as documented Psych Reports no additional complaints Aller/Immun Reports wheezing (only occasional ) Physical Exam Vital Signs: Last Vital Signs Pulse 82 05/10/23 14:07 BP 120/72 05/10/23 14:07 Pulse Ox 97 05/10/23 14:07 Oxygen Delivery Method Room Air 05/10/23 14:07 BMI result Body Mass Index 35.9 Const General: comfortable, no acute distress, alert and awake Orientation/consciousness: patient oriented x3 HEENT Head: Yes normal to inspection General nose exam: No nasal polyps present and No nasal discharge present Face and sinus: Yes sinuses nontender Mouth: oropharynx normal Throat: Yes posterior oropharynx normal Eyes General: appearance normal, both eyes and all related structures Neck Neck: Yes normal visual inspection, Yes no lymphadenopathy, Yes trachea midline and Yes no JVD Thyroid: Thyroid normal Chest Chest palpation & inspection: normal inspection of the chest, normal palpation of entire chest wall and tenderness (Minimal, nonspecific, tenderness over the anterior chest.) Resp Other: Breath sounds are distant as usual. She does not have any active wheezing crepitations or pleural rub. Cardio Palpation: normal PMI Rate: regular rate Rhythm: regular rhythm Heart sounds: no gallops and no murmurs Peripheral pulses: Peripheral pulses 2+ throughout GI Palpation (GI): Soft to palpation, nontender, No hepatosplenomegaly present and no masses Auscultation: normal bowel sounds Back/Spine/Pelvis Thoracic/Lumbar Spine: thoracic and lumbar spine normal to inspection Skin General skin exam: no rashes or lesions noted Neuro General: patient oriented x3 and no focal motor deficits Cranial nerves: Yes CN's II-XII intact bilaterally Extrem General: Yes normal to inspection, Yes no clubbing, cyanosis or edema and Yes no calf tenderness Psych Appearance: grossly normal and well kempt Speech and movement: Normal speech and movement present Results Reviewed Results Reviewed: COMPLIANCE REPORT FOR THE LAST 30 NIGHTS IS REVIEWED SHE HAS USED 30/30 NIGHTS., 100% AVERAGE USE IT PER NIGHT. 8 HOURS 44 MINUTE PRESSURE USED MOSTLY 10-12 CM. THERE IS ONLY MINIMAL. AIR LEAK ISSUE RESIDUAL AHI 0.7. Assessment & Plan Assessment & Plan (1) Obesity (BMI 30-39.9): Comment: MORBID OBESITY, STATUS POST BARIATRIC SURGERY,, HAS LOST 70 LB OF WEIGHT, FEELS GOOD. WILL CONTINUE TO LOSE MORE WEIGHT Code(s): E66.9 - Obesity, unspecified Plan: COMMENDED FOR SIGNIFICANT WEIGHT LOSS, CONTINUE TO FOLLOW-UP IN THE WEIGHT MANAGEMENT PROGRAM. (2) TISHA on CPAP: Comment: SHE IS A KNOWN CASE OF OBSTRUCTIVE SLEEP APNEA, IT IS WELL TREATED WITH CPAP . NOW THAT SHE HAS LOST SIGNIFICANT WEIGHT, SHE IS STILL GROSSLY OBESE, AND EXPECTED TO CONTINUE USING THE CPAP. COMPLIANCE IS EXCELLENT. Code(s): G47.33 - Obstructive sleep apnea (adult) (pediatric); Z99.89 - Dependence on other enabling machines and devices Plan: ADVISED TO KEEP ON USING THE CPAP. WHEN THE WEIGHT IS BELOW 200 LB, WE CAN DISCUSS ABOUT DOING A REPEAT SLEEP STUDY. (3) Allergic rhinitis: Comment: Chronic , controlled with meds . Code(s): J30.9 - Allergic rhinitis, unspecified Plan: TX: CONT. SINGULAIR 10 MG DAILY / and Fexofenadine 180 mg per day as needed (4) COPD (chronic obstructive pulmonary disease): Comment: She has combination of bronchial asthma/COPD. Remains well controlled with the use of BREO -100 ONE INH DAILY ( IT WAS THE CHANGED TO REPLACE ADVAIR ) Code(s): J44.9 - Chronic obstructive pulmonary disease, unspecified Plan: BREO-101 INHALATION DAILY. ALBUTEROL HFA 2 PUFFS Q 4-6 HOURS P.R.N. Coding Level of Care Code Est Pt Level 3 (85267) Diagnoses Obesity (BMI 30-39.9) E66.9 TISHA on CPAP G47.33; Z99.89 Allergic rhinitis J30.9 COPD (chronic obstructive pulmonary disease) J44.9
== END 2023-05-10 14:26 | disposition home or self-care (01) ==
PROVIDERS: PCP Nurse Practitioner Family; Visit Provider Internal Medicine
DX: E66.9 Obesity, unspecified (principal); G47.33 Obstructive sleep apnea (adult) (pediatric); Z99.89 Dependence on other enabling machines and devices; J30.9 Allergic rhinitis, unspecified; J44.9 Chronic obstructive pulmonary disease, unspecified
CPT/HCPCS: 99213

== ENCOUNTER 2023-05-18 13:30 | Outpatient (AMB) | payer OTHER, SELFPAY ==
--- NOTE | 2023-05-18 13:01 | A.OFFVIS_ITS ---
Intake VS Expanded 05/18/23 13:13 Height 5 ft 4 in Weight 202 lb 6 oz BMI 34.7 Intake Visit Reasons: VIDEO PO LSG 11/16/22 Allergies ENVIRONMENTAL Allergy (Intermediate, Uncoded 05/10/23 14:17) RUNNY NOSE, ASTHMA FLARE UP Medication List - Last Reconciled 05/18/23 by Caryn Garibay PA-C albuterol sulfate 90 mcg/actuation (ProAir HFA) 2 puffs inhalation Q4-6H PRN Breo Ellipta 100-25 mcg/dose (fluticasone furoate-vilanterol) 1 inh inhalation DAILY NS fexofenadine (Chasidy Allergy) 180 mg PO DAILY montelukast 10 mg PO BEDTIME 90 days HPI HPI Comments History of Present Illness Details 38 yo woman now 6 months s/p LSG. 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 Wants to stop 4:1 shakes when she uses up her present supply. Meal plan: 8am - Celebrate 4:1 2 scoops 11 am - bar 1pm - Celebrate 4:1 2 scoops 6pm - 2 oz protein and 1 oz cooked or ra w vegetable - tried ot add 1 oz fruit - but was too much for her. Exercise - walks outside sometimes - 16.5 minute mile for 3 miles!! TBP videos 4-5 minutes with weights. Post op complications: none TISHA: resolved DM: never HTN: resolved Hyperlipidemia: never GERD: 0, Satisfaction with present condition - satisfied [facility] Medical History Fatty liver Anxiety Murmur HTN (hypertension) Chest pain Morbid obesity Asthma COVID-19 COPD (chronic obstructive pulmonary disease) Allergic rhinitis TISHA on CPAP Obesity (BMI 30-39.9) Surgical History S/P laparoscopic sleeve gastrectomy Hx of sinus surgery History of loop electrical excision procedure (LEEP) History of carpal tunnel surgery Family History Father HTN (hypertension) Mother HTN (hypertension) Maternal Grandmother Breast cancer Social History Household Members: None Housing: Apartment Are you a primary skin care technician to a significant other at home: No Do you presently have visiting nurse or other home services: No Alcohol intake: current Alcohol intake frequency: does not drink Patient Tobacco Use Status: Never used Tobacco e-Cigarette/Vaping Use: Never Used Second Hand Smoke Exposure: No service: No Current occupational status: employed Current occupation: [employer] Current occupational exposures/hazards: No Gender identity: Female Cognitive needs: No Hearing needs: No Vision needs: No Female Reproductive History Menstrual Age of Menarche: 17 Assessment & Plan Assessment & Plan (1) Obesity: Code(s): E66.9 - Obesity, unspecified Plan: Now 6 months post op - labs reviewed today. Still concerned about hair thinning - started biotin 2 weeks ago. Will stop 4:1 shakes, her choice and start bariatric MVI. 8am - Isopure - 30 grams 11 am - bar or yogurt with a few berries 2pm - Isopure 30 grams 6p - 2 oz and 1 oz Did a road race recently and enjoyed. Now start couch to 5K. Next appt with Shannan in 6 weeks. Patient is still obese and is not considered stable at this time. I spent 30 minutes in total speaking with the patient via video conference counseling , reviewing records and charting in patients chart. . (2) S/P laparoscopic sleeve gastrectomy: Code(s): Z98.84 - Bariatric surgery status Plan see above Telehealth Telehealth Location of provider rendering services: practice address Location of patient: address on file Patient Identification confirmed using: Name, : Yes Telehealth method: video Patient verbally consented to treatment: Yes Patient verbally consented to billing insurance company: Yes Patient informed of any privacy concerns related to visit: Yes Coding Level of Care Code Tele Est Pt Level 4 (85034) Diagnoses Obesity E66.9 S/P laparoscopic sleeve gastrectomy Z98.84
[2023-05-18 13:13] VITALS: BMI 34.7
== END 2023-05-18 13:38 | disposition home or self-care (01) ==
LOC: HO.HBS 13:37
PROVIDERS: PCP Nurse Practitioner Family; Visit Provider Physician Assistant
DX: E66.9 Obesity, unspecified (principal); Z98.84 Bariatric surgery status
CPT/HCPCS: 99214

== ENCOUNTER → 2023-05-18 13:30 | Outpatient (BNVA) | payer OTHER, SELFPAY | PROVIDERS: PCP Nurse Practitioner Family; Visit Provider Physician Assistant | DX: E66.9 Obesity, unspecified (principal); Z98.84 Bariatric surgery status; K76.0 Fatty (change of) liver, not elsewhere classified; E34.9 Endocrine disorder, unspecified ==

== ENCOUNTER 2023-06-23 14:30 | Outpatient (AMB) | payer OTHER, SELFPAY ==
--- NOTE | 2023-06-23 14:54 | MHC.PC.OV ---
Vital Signs 06/23/23 14:58 Height 5 ft 4 in Weight 202 lb BMI 34.7 BP 134/78 Blood Pressure Location Rt brachial Position Sitting Pulse 88 Pulse Source Pulse Oximeter Pulse Oximetry (%) 98 Oxygen Delivery Method Room Air Intake Visit Reasons: 6 month fu Intake Note: Patient here to f/u on HTN Allergies ENVIRONMENTAL Allergy (Intermediate, Uncoded 06/23/23 15:22) RUNNY NOSE, ASTHMA FLARE UP Medication List - Last Reconciled 06/23/23 by JC Hamlin albuterol sulfate 90 mcg/actuation (ProAir HFA) 2 puffs inhalation Q4-6H PRN biotin 10 mg PO DAILY Breo Ellipta 100-25 mcg/dose (fluticasone furoate-vilanterol) 1 inh inhalation DAILY NS fexofenadine (Wendy Allergy) 180 mg PO DAILY montelukast 10 mg PO BEDTIME 90 days Tobacco use date assessed: 06/23/23 Dental Screening Dental Screen Date: 06/23/23 Did you have a dental visit in the last 12 months?: Yes Did you have a dental problem in the last 6 months where you did not have access to dental care?: No Was dental information given to patient?: Patient has dentist HPI 6 month fu HPI Details Pt c/o increased allergy symptoms. She is taking montelukast and wendy. Will have pt stop wendy and start cetirizine up to 2 tabs bid. Denies fever, chills, and dizziness. Pt reports doing and feeling well overall [facility] Medical History Fatty liver Anxiety Murmur HTN (hypertension) Chest pain Morbid obesity Asthma COVID-19 COPD (chronic obstructive pulmonary disease) Allergic rhinitis TISHA on CPAP Obesity (BMI 30-39.9) Surgical History S/P laparoscopic sleeve gastrectomy Hx of sinus surgery History of loop electrical excision procedure (LEEP) History of carpal tunnel surgery Family History Father HTN (hypertension) Mother HTN (hypertension) Maternal Grandmother Breast cancer Social History Household Members: None Housing: Apartment Are you a primary campground caretaker to a significant other at home: No Do you presently have visiting nurse or other home services: No Alcohol intake: current Alcohol intake frequency: does not drink Patient Tobacco Use Status: Never used Tobacco e-Cigarette/Vaping Use: Never Used Second Hand Smoke Exposure: No service: No Current occupational status: employed Current occupation: [employer] Current occupational exposures/hazards: No Gender identity: Female Cognitive needs: No Hearing needs: No Vision needs: No Female Reproductive History Menstrual Age of Menarche: 17 Questionnaire PHQ-9 Over the last 2 weeks, how often have you been bothered by any of the following problems? 1. Little interest or pleasure in doing things: not at all 2. Feeling down, depressed, or hopeless: not at all 3. Trouble falling or staying asleep, or sleeping too much: not at all 4. Feeling tired or having little energy: not at all 5. Poor appetite or overeating: not at all 6. Feeling bad about yourself - or that you are a failure or have let yourself or your family down: not at all 7. Trouble concentrating on things, such as reading the newspaper or watching television: not at all 8. Moving or speaking so slowly that other people could have noticed. Or the opposite - being so fidgety or restless that you have been moving around a lot more than usual: not at all 9. Thoughts that you would be better off or of hurting yourself in some way: not at all Total score: 0 Depression Screening Interpretation: Negative Depression Screening Done: Yes 35255 - PHQ-9 Billing: Yes Source: Developed by Drs. Kevin Domingo, Roxanna Fernandez, Joe Charles and colleagues, with an educational zoraida from [employer]. Thrive Questionnaire Date Thrive assessed: 06/23/23 I am a: Patient What is your living situation today?: I have a steady place to live Within the past 12 months, did the food you bought not last and you didn't have the money to get more?: Never true Within the past 12 months, did you worry whether your food would run out before you got money to buy more?: Never true Do you have trouble paying for medicines?: No Do you have trouble getting transportation to medical appointments?: No Do you have trouble paying your heating and electricity bill?: No Do you have trouble taking care of your child, family member or friend?: No Do you have trouble with day-to-day activities such as bathing, preparing meals, shopping, managing finances, etc.?: No Are you currently unemployed and looking for a job?: No Are you interested in more education?: No Currently or been in a relationship where the following occur: I choose not to answer this question THRIVE Score: 0 AUDIT C Alcohol Use Questionnaire (AUDIT-C) 1. How often do you have a drink containing alcohol?: Never 3. How often do you have six or more drinks on one occasion?: Never Total Score: 0 Score Reviewed/Action Taken: No ATIF-7 AMB Questionnaire ATIF-7 Date ATIF - 7 assessed: 06/23/23 Feeling nervous, anxious, or on edge: 1 = Several days Not being able to stop or control worryin = Not at all Worrying too much about different things: 1 = Several days Trouble relaxin = Not at all Being so restless that it is hard to sit still: 0 = Not at all Becoming easily annoyed or irritable: 1 = Several days Feeling afraid as if something awful might happen: 0 = Not at all Total ATIF-7 score (0-4 normal; 5-9 mild; 10-14 moderate; 15-21 severe): 3 Source: Developed by Drs. Kevin Domingo, Roxanna Fernandez, Joe Charles and colleagues, with an educational zoraida from [employer]. ATIF-7 Assessment Billing ATIF-7 Assessment Tool: ATIF-7 Assessment 27824 Review of Systems Const Reports as per HPI Physical exam (Primary Care) Vital Signs: Last Vital Signs Pulse 88 06/23/23 14:58 BP 134/78 06/23/23 14:58 Pulse Ox 98 06/23/23 14:58 Oxygen Delivery Method Room Air 06/23/23 14:58 BMI result Body Mass Index 34.7 Tobacco/Smoking Status: Tobacco use Status Tobacco use date assessed 06/23/23 06/23/23 15:04 Patient Tobacco Use Status Never used Tobacco 06/23/23 14:54 e-Cigarette/Vaping Use Never Used 06/23/23 14:54 PHQ-9: PHQ-9 Score PHQ-9: Total score 0 06/23/23 15:10 Depression Screening Interpretation: Negative Thrive Assessment: Date of Thrive Assessment Date Thrive assessed 06/23/23 06/23/23 15:10 Currently or been in a relationship where the following occur: I choose not to answer this question Const General: cooperative Nutritional Appearance: obese Orientation/consciousness: patient oriented x3 Resp Effort & Inspection: normal respiratory effort Auscultation: clear to auscultation bilaterally and diminished lung sounds Cardio Rate: regular rate Rhythm: regular rhythm Heart sounds: S1 normal heart sound present, S2 normal heart sound present and Murmur heart sound present systolic Neuro General: patient oriented x3 Psych Appearance: grossly normal Mental Status: mental status grossly normal Speech and movement: Normal speech and movement present Affect: normal affect Attitude: cooperative Thought process: Normal thought process present Thought content: Normal thought content present Insight: Good insight present (Psych) Judgement: Good judgement present (Psych) Assessment and Plan Assessment & Plan (1) Seasonal allergies: Code(s): J30.2 - Other seasonal allergic rhinitis Plan: labs ordered, start cetirizine 20mg daily (stop wendy right now, try the cetirizine) Plan The patient agreed to the use of a certified medical dosimetrist for this encounter. Scribed for JC Lugo by Elizabeth Handley certified medical dosimetrist, on 06/23/2023 at 15:10 EST. Orders: Orders Complete Blood Count Auto Diff Today J30.2 - Other seasonal allergic rhinitis UA CC w/rflx Micro + Cult Today J30.2 - Other seasonal allergic rhinitis Comprehensive Keenes. Panel Fast Today J30.2 - Other seasonal allergic rhinitis TSH reflex Free T4 Today J30.2 - Other seasonal allergic rhinitis Lipid Panel Today J30.2 - Other seasonal allergic rhinitis Coding Level of Care Code Est Pt Level 3 (27887) Diagnoses Seasonal allergies J30.2 Additional Codes ATIF-7 Assessment Billing - ATIF-7 Assessment Tool: ATIF-7 Assessment 78073 ([id number])
[2023-06-23 14:58] VITALS: BP 134/78; PULSE 88; O2SAT 98; BMI 34.7
== END 2023-06-23 16:30 | disposition home or self-care (01) ==
PROVIDERS: PCP Nurse Practitioner Family; Visit Provider Nurse Practitioner Family
DX: J30.2 Other seasonal allergic rhinitis (principal)
CPT/HCPCS: 99213

== ENCOUNTER 2023-07-07 13:08 | Outpatient (AMB) | payer OTHER, SELFPAY ==
--- NOTE | 2023-07-07 13:06 | MHC.OFFVISWM ---
VS Expanded 07/07/23 13:09 Height 5 ft 4 in Intake Visit Reasons: (telephone) PO LSG 11/16/22 Allergies ENVIRONMENTAL Allergy (Intermediate, Uncoded 06/23/23 15:22) RUNNY NOSE, ASTHMA FLARE UP Medication List - Last Reconciled 07/07/23 by SAMMY Rojas albuterol sulfate 90 mcg/actuation (ProAir HFA) 2 puffs inhalation Q4-6H PRN biotin 10 mg PO DAILY Breo Ellipta 100-25 mcg/dose (fluticasone furoate-vilanterol) 1 inh inhalation DAILY NS fexofenadine (Chasidy Allergy) 180 mg PO DAILY montelukast 10 mg PO BEDTIME 90 days HPI Comments Details: This?is a?38?yo female who is s/p LSG 11/16/2022. Presents for 8 month post op visit. Weight at last visit on 05/18/2023 was 202 pounds with a BMI of 34.7, pt unsure of weight today.? No complaints of nausea, emesis, abdominal pain or reflux, or constipation. Present meal plan includes: 8am - Isopure - 30 grams 11 am - bar or yogurt with a few berries 2pm - Isopure 30 grams 6p - 2-3 oz protein and 1 oz veg takes MVI Exercise routine includes: outdoor walking, recently did [employer] 2 mile walk [employer] videos recently had to take a week off due to worsening allergies [facility] Medical History Fatty liver Anxiety Murmur HTN (hypertension) Chest pain Morbid obesity Asthma COVID-19 COPD (chronic obstructive pulmonary disease) Allergic rhinitis TISHA on CPAP Obesity (BMI 30-39.9) Surgical History S/P laparoscopic sleeve gastrectomy Hx of sinus surgery History of loop electrical excision procedure (LEEP) History of carpal tunnel surgery Family History Father HTN (hypertension) Mother HTN (hypertension) Maternal Grandmother Breast cancer Social History Household Members: None Housing: Apartment Are you a primary in home caregiver to a significant other at home: No Do you presently have visiting nurse or other home services: No Alcohol intake: current Alcohol intake frequency: does not drink Patient Tobacco Use Status: Never used Tobacco e-Cigarette/Vaping Use: Never Used Second Hand Smoke Exposure: No service: No Current occupational status: employed Current occupation: [employer] Current occupational exposures/hazards: No Gender identity: Female Cognitive needs: No Hearing needs: No Vision needs: No Female Reproductive History Menstrual Age of Menarche: 17 Telehealth Telehealth Telehealth Platform: Telephone Location of provider rendering services: practice address Location of patient: address on file Patient Identification confirmed using: Name, : Yes Telehealth method: voice only Patient verbally consented to treatment: Yes Patient verbally consented to billing insurance company: Yes Patient informed of any privacy concerns related to visit: Yes Minutes spent on Phone/Video with Pt.: 12 Assessment & Plan Assessment & Plan (1) Obesity: Code(s): E66.9 - Obesity, unspecified Category: Medical (2) S/P laparoscopic sleeve gastrectomy: Code(s): Z98.84 - Bariatric surgery status Category: Surgical Plan Pt is happy with meal plan after change in shake. No additional changes made today. She can text me with any questions/concerns between now and next visit. Can also text me with weight measurements weekly if she finds it helpful. RTC 2 months. Patient is obese and is not considered stable at this time. I spent a total of 30 minutes reviewing/updating records, examining the patient and counseling the patient on weight management as detailed above.
== END 2023-07-07 13:20 | disposition home or self-care (01) ==
LOC: HO.HBS 13:08
PROVIDERS: PCP Nurse Practitioner Family; Visit Provider Physician Assistant Surgical
DX: E66.9 Obesity, unspecified (principal); Z68.34 Body mass index [BMI] 34.0-34.9, adult; Z90.3 Acquired absence of stomach [part of]; Z98.84 Bariatric surgery status
CPT/HCPCS: 99442

== ENCOUNTER → 2023-07-07 13:08 | Outpatient (BNVA) | payer OTHER, SELFPAY | PROVIDERS: PCP Nurse Practitioner Family; Visit Provider Physician Assistant Surgical ==

== ENCOUNTER 2023-09-29 07:40 | Outpatient (REF) | payer OTHER, SELFPAY ==
--- NOTE | ~2023-09-29 | XR_ITS ---
EXAMINATION: Left knee 2 views CLINICAL INFORMATION: Pain in left knee COMPARISON: None. TECHNIQUE: 2 views of the left knee FINDINGS: Alignment is anatomic. Small suprapatellar joint effusion. Mild periarticular spurring in the medial compartment. No significant erosive changes. XR/XR knee LT 2V IMPRESSION: Mild degenerative changes in the medial compartment of the left knee. Small suprapatellar joint effusion. Electronically signed by: Chalino Damico MD 10/31/2023 11:21 AM EDT
[2023-09-29 07:50] LABS: MANUAL DIFF FLAG NO
[2023-09-29 08:31] LABS: Basophils Absolute Auto 0.1 X10*3/uL (0.0-0.2); Basophils Percent Auto 0.9 % (0-2); Eosinophils Absolute Auto 0.4 X10*3/uL (0.0-0.4); Eosinophils Percent Auto 6.5 % (0-4); Hematocrit 43.8 % (37.0-47.0); Hemoglobin 14.5 g/dl (12.0-16.0); Imm Gran Abs Auto 0.02 X10*3/uL (0.00-0.03); Imm Gran Pct Auto 0.3 % (0.0-0.4); Lymphocytes Absolute Auto 2.2 X10*3/uL (1.2-4.9); Lymphocytes Percent Auto 34.6 % (20-40); Mean Corpuscular HGB Conc 33.1 g/dl (31.0-35.0); Mean Corpuscular Hemoglobin 31.8 pg (27.0-33.0); Mean Corpuscular Volume 96.1 fL (80.0-98.0); Mean Platelet Volume 9.3 fL (9.4-12.3); Monocytes Absolute Auto 0.6 X10*3/uL (0.1-1.2); Monocytes Percent Auto 9.8 % (2-11); Neutrophils Percent Auto 47.9 % (45-73); Platelet Count 390 X10*3/uL (160-400); Red Blood Count 4.56 X10*6/uL (4.20-5.50); Red Cell Distribution Width 13.5 % (11.0-16.0); White Blood Count 6.3 X10*3/uL (4.8-10.8)
[2023-09-29 08:55] LABS: Alanine Aminotransferase 66 U/L (0-31); Alkaline Phosphatase 71 U/L (39-117); Anion Gap 13 (12-20); Aspartate Amino Transferase 58 U/L (5-31); Bilirubin Total 0.4 mg/dL (0.0-1.0); Blood Urea Nitrogen 7 mg/dL (9-16); Calcium 9.3 mg/dL (8.4-10.2); Carbon Dioxide 27 mmol/L (22-29); Chloride 108 mmol/L (96-108); Cholesterol 177 mg/dL (<200); Estimated Glomerular Filt Rate > 60; Glucose Fasting 73 mg/dL (60-99); HDL Cholesterol 83 mg/dL (>40); LDL Cholesterol Calculated 77 mg/dL (<100); Potassium 3.8 mmol/L (3.3-5.1); Sodium 144 mmol/L (135-145); Triglycerides 89 mg/dL (<150)
[2023-09-29 09:13] LABS: TSH reflex Free T4 3.26 uIU/mL (0.32-4.0)
== END 2023-09-29 07:41 | disposition home or self-care (01) ==
LOC: HO.XRAY 07:40
PROVIDERS: PCP Nurse Practitioner Family; Visit Provider Nurse Practitioner Family
DX: J30.2 Other seasonal allergic rhinitis (principal); M25.562 Pain in left knee; R74.8 Abnormal levels of other serum enzymes
CPT/HCPCS: 36415; 73560; 80053; 80061; 84443; 85025

== ENCOUNTER 2023-10-03 14:41 | Outpatient (AMB) | payer OTHER, SELFPAY ==
[2023-10-03 14:51] VITALS: BP 130/78; PULSE 92; O2SAT 99; BMI 32.4
--- NOTE | 2023-10-03 14:51 | MHC.OFFVIS ---
Vital Signs 10/03/23 14:51 Height 5 ft 4 in Weight 189 lb BMI 32.4 BP 130/78 Blood Pressure Location Lt brachial Pulse 92 Pulse Source Pulse Oximeter Pulse Oximetry (%) 99 Oxygen Delivery Method Room Air Intake Visit Reasons: Asthma Intake Note: pt is here for follow up and states she is feeling good, had gastric sleeve done almost a year now, cpap is going okay but she did episodes of falling asleep early this summer. Circular Shear Operator Required: No Allergies ENVIRONMENTAL Allergy (Intermediate, Uncoded 10/03/23 15:15) RUNNY NOSE, ASTHMA FLARE UP Medication List - Last Reconciled 10/03/23 by Lisa Wilde MD albuterol sulfate 90 mcg/actuation (ProAir HFA) 2 puffs inhalation Q4-6H PRN biotin 10 mg PO DAILY Breo Ellipta 100-25 mcg/dose (fluticasone furoate-vilanterol) 1 inh inhalation DAILY NS fexofenadine (Chasidy Allergy) 180 mg PO DAILY montelukast 10 mg PO BEDTIME 90 days Do you need a note to return to daycare/school/sports/work: No HPI HPI Asthma: Details: 38 YEARS OLD FEMALE WHO WAS ONCE MORBIDLY OBESE AND HAS SUCCESSFULLY LOST WEIGHT. HAD GASTRIC SLEEVE SURGERY ABOUT A YEAR AGO. SHE HAS LOST. CLOSE TO 100 LB BREATHING IS GOOD HARDLY NEEDS TO USE THE RESCUE INHALER. BUT SHE DOES USE BREO 1 INHALATION DAILY AND SINGULAIR 10 MG DAILY. USES CPAP VERY REGULARLY AND SLEEPS GOOD. ONLY SOME NIGHT SHE GOES TO SLEEP WITHOUT PUTTING ON THE CPAP. SHE HAS NO ISSUE WITH THE MASK OR CPAP MACHINE [facility] Medical History Fatty liver Anxiety Murmur HTN (hypertension) Chest pain Morbid obesity Asthma COVID-19 COPD (chronic obstructive pulmonary disease) Allergic rhinitis TISHA on CPAP Obesity (BMI 30-39.9) Surgical History S/P laparoscopic sleeve gastrectomy Hx of sinus surgery History of loop electrical excision procedure (LEEP) History of carpal tunnel surgery Family History Father HTN (hypertension) Mother HTN (hypertension) Maternal Grandmother Breast cancer Social History Household Members: None Housing: Apartment Are you a primary post acute care nurse to a significant other at home: No Do you presently have visiting nurse or other home services: No Alcohol intake: current Alcohol intake frequency: does not drink Patient Tobacco Use Status: Never used Tobacco e-Cigarette/Vaping Use: Never Used Second Hand Smoke Exposure: No service: No Current occupational status: employed Current occupation: [employer] Current occupational exposures/hazards: No Gender identity: Female Cognitive needs: No Hearing needs: No Vision needs: No Female Reproductive History Menstrual Age of Menarche: 17 Review of Systems Const All systems reviewed & are unremarkable except as noted in HPI and below Eyes Reports no additional complaints ENT Reports no additional complaints Card Reports chest pain (It is more like muscular, discomfort across the anterior chest), Denies irregular heart rhythm and Denies leg edema Resp Details: She has her usual mild intermittent cough with some wheezing Reports cough (mild) and Reports wheezing (only occasional ) GI Reports no additional complaints Reports no additional complaints Musc Reports no additional complaints Skin/Breast Reports system reviewed and no additional complaints, except as documented Psych Reports no additional complaints Aller/Immun Reports wheezing (only occasional ) Physical Exam Vital Signs: Last Vital Signs Pulse 92 10/03/23 14:51 BP 130/78 10/03/23 14:51 Pulse Ox 99 10/03/23 14:51 Oxygen Delivery Method Room Air 10/03/23 14:51 BMI result Body Mass Index 32.4 Const General: comfortable, no acute distress, alert and awake Orientation/consciousness: patient oriented x3 HEENT Head: Yes normal to inspection General nose exam: No nasal polyps present and No nasal discharge present Face and sinus: Yes sinuses nontender Mouth: oropharynx normal Throat: Yes posterior oropharynx normal Eyes General: appearance normal, both eyes and all related structures Neck Neck: Yes normal visual inspection, Yes no lymphadenopathy, Yes trachea midline and Yes no JVD Thyroid: Thyroid normal Chest Chest palpation & inspection: normal inspection of the chest, normal palpation of entire chest wall and tenderness (Minimal, nonspecific, tenderness over the anterior chest.) Resp Other: Breath sounds are distant as usual. She does not have any active wheezing crepitations or pleural rub. Cardio Palpation: normal PMI Rate: regular rate Rhythm: regular rhythm Heart sounds: no gallops and no murmurs Peripheral pulses: Peripheral pulses 2+ throughout GI Palpation (GI): Soft to palpation, nontender, No hepatosplenomegaly present and no masses Auscultation: normal bowel sounds Back/Spine/Pelvis Thoracic/Lumbar Spine: thoracic and lumbar spine normal to inspection Skin General skin exam: no rashes or lesions noted Neuro General: patient oriented x3 and no focal motor deficits Cranial nerves: Yes CN's II-XII intact bilaterally Extrem General: Yes normal to inspection, Yes no clubbing, cyanosis or edema and Yes no calf tenderness Psych Appearance: grossly normal and well kempt Speech and movement: Normal speech and movement present Results Reviewed Results Reviewed: CPAP COMPLIANCE REPORT IS REVIEWED FOR THE LAST 30 NIGHTS. USED 27/30 NIGHTS, 90%. AVERAGE USE IT PER NIGHT 5 HOURS 43 MINUTES. PRESSURE USED MOSTLY . 9-11 CM THERE IS NO SIGNIFICANT AIR LEAK. RESIDUAL AHI 1 Assessment & Plan Assessment & Plan (1) TISHA on CPAP: Comment: SHE IS A KNOWN CASE OF OBSTRUCTIVE SLEEP APNEA, IT IS WELL TREATED WITH CPAP . NOW THAT SHE HAS LOST SIGNIFICANT WEIGHT, SHE IS STILL MODERATELY , AND EXPECTED TO CONTINUE USING THE CPAP. COMPLIANCE IS EXCELLENT. Code(s): G47.33 - Obstructive sleep apnea (adult) (pediatric); Z99.89 - Dependence on other enabling machines and devices Category: Medical Plan: COMMENDED FOR GOOD COMPLIANCE. I DID TALK TO HER THAT ONCE HER WEIGHT COMES DOWN TO HER GOAL, 150-160 LB, WE CAN DISCUSS ABOUT STOPPING THE CPAP. (2) Allergic rhinitis: Comment: Chronic , controlled with meds . Code(s): J30.9 - Allergic rhinitis, unspecified Category: Medical Plan: FEXOFENADINE 180 MG ONCE A DAY, . P.R.N. MONTELUKAST 10 MG DAILY. (3) Obesity (BMI 30-39.9): Comment: MORBID OBESITY, STATUS POST BARIATRIC SURGERY,, HAS LOST ALMOST 100 LBS OF WEIGHT, FEELS GOOD. WILL CONTINUE TO LOSE MORE WEIGHT Code(s): E66.9 - Obesity, unspecified Category: Medical Plan: PATIENT IS WELL MOTIVATED AND SHE WILL CONTINUE TO LOSE MORE WEIGHT (4) Asthma: Comment: BRONCHIAL ASTHMA WELL CONTROLLED AT THIS TIME, .IT FLARES UP WITH ALLERGY SYMPTOMS Code(s): J45.909 - Unspecified asthma, uncomplicated Category: Medical Plan: BREO 100-25. 1 INHALATION DAILY ALBUTEROL HFA 2 PUFFS Q 4-6 HOURS P.R.N.. Coding Level of Care Code Est Pt Level 3 (37785) Diagnoses TISHA on CPAP G47.33; Z99.89 Allergic rhinitis J30.9 Obesity (BMI 30-39.9) E66.9 Asthma J45.909
== END 2023-10-03 15:17 | disposition home or self-care (01) ==
PROVIDERS: PCP Nurse Practitioner Family; Visit Provider Internal Medicine
DX: G47.33 Obstructive sleep apnea (adult) (pediatric) (principal); Z99.89 Dependence on other enabling machines and devices; J30.9 Allergic rhinitis, unspecified; E66.9 Obesity, unspecified; J45.909 Unspecified asthma, uncomplicated
CPT/HCPCS: 99213

== ENCOUNTER → 2023-10-03 14:41 | Outpatient (BNVA) | payer OTHER, SELFPAY | PROVIDERS: PCP Nurse Practitioner Family; Visit Provider Internal Medicine ==

== ENCOUNTER 2023-11-15 12:38 | Outpatient (AMB) | payer OTHER, SELFPAY ==
--- NOTE | 2023-11-15 12:27 | MHC.OFFVISWM ---
VS Expanded 11/15/23 12:28 Height 5 ft 4 in Weight 183 lb 2 oz BMI 31.4 Intake Visit Reasons: (telephone) PO LSG 11/16/22 Allergies ENVIRONMENTAL Allergy (Intermediate, Uncoded 10/03/23 15:15) RUNNY NOSE, ASTHMA FLARE UP Medication List - Last Reconciled 11/15/23 by SAMMY Rojas albuterol sulfate 90 mcg/actuation (ProAir HFA) 2 puffs inhalation Q4-6H PRN biotin 10 mg PO DAILY Breo Ellipta 100-25 mcg/dose (fluticasone furoate-vilanterol) 1 inh inhalation DAILY NS fexofenadine (Chasidy Allergy) 180 mg PO DAILY montelukast 10 mg PO BEDTIME 90 days HPI Comments Details: This?is a?38?yo female who is s/p LSG 11/16/2022. Presents for 1 year post op visit. Last recorded weight 05/18/2023 was 202 pounds with a BMI of 34.7, weight loss of 19lbs at today's visit.? No complaints of nausea, emesis, abdominal pain or reflux, or constipation. Present meal plan includes: 8am - Isopure - 20 grams 11 am - bar or yogurt with a few berries 2pm - Isopure 20 grams 6p - 2-3 oz protein and 1 oz veg takes MVI Exercise routine includes: outdoor walking, recently did [employer] 2 mile walk [employer] videos has some fluid under kneecap, makes activity more painful for the past few months going to PT, has had 3 weekly PT sessions, will see ortho [facility] Medical History Fatty liver Anxiety Murmur HTN (hypertension) Chest pain Morbid obesity Asthma COVID-19 COPD (chronic obstructive pulmonary disease) Allergic rhinitis TISHA on CPAP Obesity (BMI 30-39.9) Surgical History S/P laparoscopic sleeve gastrectomy Hx of sinus surgery History of loop electrical excision procedure (LEEP) History of carpal tunnel surgery Family History Father HTN (hypertension) Mother HTN (hypertension) Maternal Grandmother Breast cancer Social History Household Members: None Housing: Apartment Are you a primary healthcare interpreter to a significant other at home: No Do you presently have visiting nurse or other home services: No Alcohol intake: current Alcohol intake frequency: does not drink Patient Tobacco Use Status: Never used Tobacco e-Cigarette/Vaping Use: Never Used Second Hand Smoke Exposure: No service: No Current occupational status: employed Current occupation: [employer] Current occupational exposures/hazards: No Gender identity: Female Cognitive needs: No Hearing needs: No Vision needs: No Female Reproductive History Menstrual Age of Menarche: 17 Telehealth Telehealth Telehealth Platform: Telephone Location of provider rendering services: other Location of patient: address on file Patient Identification confirmed using: Name, : Yes Telehealth method: voice only Patient verbally consented to treatment: Yes Patient verbally consented to billing insurance company: Yes Patient informed of any privacy concerns related to visit: Yes Minutes spent on Phone/Video with Pt.: 16 Assessment & Plan Assessment & Plan (1) Obesity: Code(s): E66.9 - Obesity, unspecified Category: Medical (2) S/P laparoscopic sleeve gastrectomy: Code(s): Z98.84 - Bariatric surgery status Category: Surgical Plan Meal plan- 1 Isopure scoop 20g, 1 bar (suggested Fitcrunch or Atkins as she has trouble finding zone bars in stock), 1 yogurt with berries, 1 meal 4-6 forks protein, can increase to 4 forks veg if she tolerates. Had a lot of recent bloodwork done, will order vitamin levels. RTC 3 months, encouraged pt to text me between appts with any concerns. I spent a total of 30 minutes reviewing/updating records, examining the patient and counseling the patient on weight management as detailed above. Orders: Orders Zinc Today Z98.84 - Bariatric surgery status Vitamin B1 Today Z98.84 - Bariatric surgery status Vitamin B12 and Folate Today Z98.84 - Bariatric surgery status Vitamin A Today Z98.84 - Bariatric surgery status Vitamin D 25-OH Total Today Z98.84 - Bariatric surgery status
[2023-11-15 12:28] VITALS: BMI 31.4
== END 2023-11-15 13:01 | disposition home or self-care (01) ==
LOC: HO.HBS 12:38
PROVIDERS: PCP Nurse Practitioner Family; Visit Provider Physician Assistant Surgical
DX: E66.9 Obesity, unspecified (principal); Z68.31 Body mass index [BMI] 31.0-31.9, adult; Z90.3 Acquired absence of stomach [part of]; Z98.84 Bariatric surgery status
CPT/HCPCS: 99442

== ENCOUNTER → 2023-11-15 12:38 | Outpatient (BNVA) | payer OTHER, SELFPAY | PROVIDERS: PCP Nurse Practitioner Family; Visit Provider Physician Assistant Surgical ==

== ENCOUNTER 2023-12-12 07:00 | Outpatient (RCR) | payer OTHER, SELFPAY ==
--- NOTE | 2023-10-17 07:48 | MHC.PT.EP ---
[facility] [place] [facility] [place] Office [place] Office [address] [phone] F: [phone] F: [phone] F: [phone] F: [phone] Physical Therapy Plan of Care Date of Evaluation: 10/17/23 Date of Surgery: Diagnosis: L knee pain Assessment: 38 y/o female referred to PT with L knee pain> S/s consistent with prepatellar bursitis and peripatella tendinopathy resulting in pain and difficulty with walking, stairs, jogging, exercises, kneeling, squatting, and geting up after prolonged sitting. Examination shows decreased L knee ROM, decreased L hip/knee strength, decreased L quad/ HS length, TTP over prepatella bursa and peripatella region, no joint line tenderness, and impaired gait pattern. Recommend PT 2x/week for 6 weeks however pt would like to come 1x/week d/t work schedule. Frequency and Duration: The patient will be seen 1x/week for 6 weeks Short Term Goals: 3 weeks I with HEP I with self taping Halfway Goals: 6 weeks Pt will be able to ambulate > 30 minutes with pain < 3/10 Pt will demonstrate 4+/5 hip strength to facilitate stairs Pt will be able to ascend/ descend stairs in step through pattern and pain < 3/10 Treatment Plan: Modalities to reduce pain, spasms and effusion. Manual therapy to restore motion and function. Therapeutic exercise to improve strength and flexibility. Neuromuscular re-education for posture and balance. Therapeutic activities to return to functional activities of daily living. Electronically signed by: Jimena Ca PT Please sign and return to therapist. Thank you for your referral.
--- NOTE | 2024-02-09 14:01 | MHC.PT.DC ---
[facility] [place] Office [place] Office [place] Office [address] Tatyana Dent [address] [phone] F: [phone] F: [phone] F: [phone] F: [phone] Physical Therapy Discharge Report Diagnosis: L knee pain Date of Surgery: Date of Evaluation: 10/17/23 Date of Discharge: 02/09/24 Treatments to Date: 6 Cancellations to Date: 2 No Shows to Date: 0 Discharge Status: Independent with HEP Patient Elected to Stop Discharge Summary: Kept chart open for 30 days in case pt would like to continue with PT and will now close chart. At time of last attended visit, pt was able to ascend/ descend stairs but with pain. Electronically signed by: Jimena eller PT Please sign and return to therapist. Thank you for your referral.
== END 2024-02-09 14:01 | disposition home or self-care (01) ==
LOC: HO.PTCHIC 07:00
PROVIDERS: PCP Nurse Practitioner Family; Visit Provider Nurse Practitioner Family
DX: M25.562 Pain in left knee (principal)
CPT/HCPCS: 97110; 97161

== ENCOUNTER 2023-12-21 14:56 | Outpatient (AMB) | payer OTHER, SELFPAY ==
--- NOTE | 2023-12-21 15:02 | A.OFFVIS_ITS ---
Vital Signs 12/21/23 15:05 Height 5 ft 4 in Weight 190 lb BMI 32.6 BP 128/88 Blood Pressure Location Lt brachial Position Sitting Intake Visit Reasons: [place] annual exam Allergies ENVIRONMENTAL Allergy (Intermediate, Uncoded 12/21/23 15:09) RUNNY NOSE, ASTHMA FLARE UP HPI Comments Details: Presenting for annual exam. No complaints. Last Pap/HPV was negative in 07/11 [facility] Medical History Fatty liver Anxiety Murmur HTN (hypertension) Chest pain Morbid obesity Asthma COVID-19 COPD (chronic obstructive pulmonary disease) Allergic rhinitis TISHA on CPAP Obesity (BMI 30-39.9) Surgical History S/P laparoscopic sleeve gastrectomy Hx of sinus surgery History of loop electrical excision procedure (LEEP) History of carpal tunnel surgery Family History Father HTN (hypertension) Mother HTN (hypertension) Maternal Grandmother Breast cancer Social History Household Members: None Housing: Apartment Are you a primary career development counselor to a significant other at home: No Do you presently have visiting nurse or other home services: No Alcohol intake: current Alcohol intake frequency: does not drink Patient Tobacco Use Status: Never used Tobacco e-Cigarette/Vaping Use: Never Used Second Hand Smoke Exposure: No service: No Current occupational status: employed Current occupation: [email or web address] Current occupational exposures/hazards: No Gender identity: Female Cognitive needs: No Hearing needs: No Vision needs: No Female Reproductive History Menstrual Age of Menarche: 17 control method: implanted (Nexplanon) Total pregnancies: 0 Date of last pap smear: 06/26/20 History of abnormal pap smear: Yes History of STI: No Review of Systems Const All systems reviewed & are unremarkable except as noted in HPI and below Card Reports as per HPI Resp Reports as per HPI GI Reports as per HPI and Reports no additional complaints Reports as per HPI Physical Exam Vital Signs: Last Vital Signs BP 128/88 12/21/23 15:05 BMI result Body Mass Index 32.6 Const General: cooperative, healthy appearing and comfortable Chest Chest palpation & inspection: normal inspection of the chest and normal palpation of entire chest wall Breast/axilla inspection: normal inspection of the breasts and normal inspection of the axillae Breast/axilla palpation: normal palpation of the breasts, normal palpation of the axillae and no axillary lymphadenopathy Resp Effort & Inspection: normal respiratory effort Auscultation: clear to auscultation bilaterally Percussion: percussion normal Cardio Palpation: normal PMI Rate: regular rate Rhythm: regular rhythm Heart sounds: no murmurs and no rubs Peripheral pulses: Peripheral pulses 2+ throughout GI Inspection: Yes normal to inspection Palpation (GI): Soft to palpation, nontender, no guarding, not rigid and No hepatosplenomegaly present Percussion: Yes normal to percussion Auscultation: normal bowel sounds Rectal Exam - Female: deferred General: Yes bladder normal to palpation External Female Exam: No lesion Speculum Exam - Vagina: normal appearance of the vagina, normal palpation, normal vaginal discharge and not erythematous Speculum Exam - Cervix: normal appearance of the cervix and normal palpation Bimanual exam- vagina & uterus: normal bimanual exam, normal palpation, uterine size normal, bladder normal to palpation, consistency normal and normal palpation Bimanual Exam- Adnexa, other: normal adnexae, no masses and no tenderness Assessment & Plan Assessment & Plan (1) Well woman exam: Code(s): Z01.419 - Encounter for gynecological examination (general) (routine) without abnormal findings Category: Medical Plan: Cotesting done. Counseled the patient about the recommended dietary allowance of 1000 mg of Calcium & 600 IU of vitamin D. The patient was instructed to perform monthly self-breast exams and to schedule an annual exam in a year; All questions answered and the patient verbalized understanding. Instructed the patient to schedule annual exam in a year Coding Level of Care Code Est Pt Prev Care 18-39y(33009) Diagnoses Well woman exam Z01.419
[2023-12-21 15:05] VITALS: BP 128/88; BMI 32.6
== END 2023-12-21 15:49 | disposition home or self-care (01) ==
LOC: HO.HWS 14:56
PROVIDERS: PCP Nurse Practitioner Family; Visit Provider Obstetrics & Gynecology
DX: Z01.419 Encounter for gynecological examination (general) (routine) without abnormal findings (principal)
CPT/HCPCS: 99395

== ENCOUNTER → 2023-12-21 14:56 | Outpatient (BNVA) | payer OTHER, SELFPAY | PROVIDERS: PCP Nurse Practitioner Family; Visit Provider Obstetrics & Gynecology ==

== ENCOUNTER 2024-01-30 15:06 | Outpatient (AMB) | payer OTHER, SELFPAY ==
--- NOTE | 2024-01-30 12:31 | MHC.OFFVISWM ---
VS Expanded 01/30/24 12:36 Height 5 ft 4 in Weight 183 lb BMI 31.4 Intake Visit Reasons: TELEPHONE PO LSG 11/16/22 Allergies ENVIRONMENTAL Allergy (Intermediate, Uncoded 12/21/23 15:09) RUNNY NOSE, ASTHMA FLARE UP Medication List - Last Reconciled 01/30/24 by SAMMY Rojas albuterol sulfate 90 mcg/actuation (ProAir HFA) 2 puffs inhalation Q4-6H PRN biotin 10 mg PO DAILY Breo Ellipta 100-25 mcg/dose (fluticasone furoate-vilanterol) 1 inh inhalation DAILY NS etonogestrel (Nexplanon) subdermal fexofenadine (Chasidy Allergy) 180 mg PO DAILY montelukast 10 mg PO BEDTIME 90 days HPI Comments Details: This?is a?38?yo female who is s/p LSG 11/16/2022. Presents for 15 month post op visit. Weight at last visit on 11/15/2023 was 183.2 pounds with a BMI of 31.4, weight today is same.? No complaints of nausea, emesis, abdominal pain or reflux, or constipation. Present meal plan includes: 1 Isopure scoop 20g, 1 bar (suggested Fitcrunch or Atkins as she has trouble finding zone bars in stock), 1 yogurt with berries, 1 meal 4-6 forks protein, can increase to 4 forks veg sick of bars Exercise routine includes: outdoor walking, [employer] videos my knee is still messed up - has appt with ortho in Feb [facility] Medical History Fatty liver Anxiety Murmur HTN (hypertension) Chest pain Morbid obesity Asthma COVID-19 COPD (chronic obstructive pulmonary disease) Allergic rhinitis TISHA on CPAP Obesity (BMI 30-39.9) Surgical History S/P laparoscopic sleeve gastrectomy Hx of sinus surgery History of loop electrical excision procedure (LEEP) History of carpal tunnel surgery Family History Father HTN (hypertension) Mother HTN (hypertension) Maternal Grandmother Breast cancer Social History Household Members: None Housing: Apartment Are you a primary client care coordinator to a significant other at home: No Do you presently have visiting nurse or other home services: No Alcohol intake: current Alcohol intake frequency: does not drink Patient Tobacco Use Status: Never used Tobacco e-Cigarette/Vaping Use: Never Used Second Hand Smoke Exposure: No service: No Current occupational status: employed Current occupation: [employer] Current occupational exposures/hazards: No Gender identity: Female Cognitive needs: No Hearing needs: No Vision needs: No Female Reproductive History Menstrual Age of Menarche: 17 Telehealth Telehealth Telehealth Platform: Telephone Location of provider rendering services: practice address Location of patient: address on file Patient Identification confirmed using: Name, : Yes Telehealth method: voice only Patient verbally consented to treatment: Yes Patient verbally consented to billing insurance company: Yes Patient informed of any privacy concerns related to visit: Yes Minutes spent on Phone/Video with Pt.: 15 Assessment & Plan Assessment & Plan (1) Obesity: Code(s): E66.9 - Obesity, unspecified Category: Medical (2) S/P laparoscopic sleeve gastrectomy: Code(s): Z98.84 - Bariatric surgery status Category: Surgical Plan Will adjust meal plan per pt preference. She no longer wants to use bars. Agreed to 1 protein drink per day. I think low protein intake (she was skipping bars) plus lack of activity have caused her weight loss to stall. 1 Isopure drink, 1 belarusian yogurt or protein chip supplement, 1 meal of 2 eggs, 1 meal of 4-6 forks protein and 4-6 forks veg. Goal 75g/day. RTC 3 months. I spent a total of 30 minutes reviewing/updating records, examining the patient and counseling the patient on weight management as detailed above.
[2024-01-30 12:36] VITALS: BMI 31.4
== END 2024-01-30 15:06 | disposition home or self-care (01) ==
LOC: HO.HBS 15:06
PROVIDERS: PCP Nurse Practitioner Family; Visit Provider Physician Assistant Surgical
DX: E66.9 Obesity, unspecified (principal); Z68.31 Body mass index [BMI] 31.0-31.9, adult; E66.811 Obesity, class 1; Z98.84 Bariatric surgery status
CPT/HCPCS: 98967

== ENCOUNTER → 2024-01-30 15:06 | Outpatient (BNVA) | payer OTHER, SELFPAY | PROVIDERS: PCP Nurse Practitioner Family; Visit Provider Physician Assistant Surgical | DX: E66.9 Obesity, unspecified (principal); Z98.84 Bariatric surgery status ==

== ENCOUNTER 2024-01-31 09:24 | Outpatient (REF) | payer OTHER, SELFPAY ==
[2024-01-31 10:21] LABS: Vitamin D 25-OH Total 48.2 ng/mL (>30)
[2024-01-31 10:34] LABS: Folate 14.1 ng/mL (> or = 4.0); Vitamin B12 1607 pg/mL (200-900)
[2024-02-03 13:27] LABS: Zinc 71 mcg/dL (60-130)
[2024-02-04 22:02] LABS: Vitamin A 66 mcg/dL (38-98)
[2024-02-09 16:03] LABS: Vitamin B1 32 nmol/L (8-30)
== END 2024-01-31 09:25 | disposition home or self-care (01) ==
LOC: HO.LAB 09:24
PROVIDERS: PCP Nurse Practitioner Family; Visit Provider Physician Assistant Surgical
DX: Z98.84 Bariatric surgery status (principal); Z00.00 Encounter for general adult medical examination without abnormal findings; Z23 Encounter for immunization; L98.9 Disorder of the skin and subcutaneous tissue, unspecified
CPT/HCPCS: 36415; 82306; 82607; 82746; 84425; 84590; 84630; 90471; 90656; 96127

== ENCOUNTER 2024-01-31 14:26 | Outpatient (AMB) | payer OTHER, SELFPAY ==
[2024-01-31 14:31] VITALS: BP 130/74; PULSE 80; O2SAT 99; BMI 33.4
--- NOTE | 2024-01-31 14:31 | MHC.PC.OV ---
Vital Signs 01/31/24 14:31 Height 5 ft 4 in Weight 194 lb 6 oz BMI 33.4 BP 130/74 Blood Pressure Location Lt brachial Position Sitting Pulse 80 Pulse Source Pulse Oximeter Pulse Oximetry (%) 99 Intake Visit Reasons: PE Intake Note: pt is here for PE Program Research Specialist Required: No Allergies ENVIRONMENTAL Allergy (Intermediate, Uncoded 01/31/24 14:31) RUNNY NOSE, ASTHMA FLARE UP Tobacco use date assessed: 06/23/23 Dental Screening Dental Screen Date: 06/23/23 HPI PE HPI Details History of Present Illness here for a PE. 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 - Exercise: High physical activity at work - Level of Activity: Standing for long periods leading to knee pain - Family Status: Has a brother - Substance Use: Not explicitly discussed Review of Systems - Skin: Reports macular erythema lesions on facial cheeks - Musculoskeletal: Reports knee pain, more severe after work shifts - Respiratory: Denies recent chest pain, shortness of breath - Gastrointestinal: Denies constipation, diarrhea, blood in stool - Neurological: Denies numbness, tingling Physical Exam General: Cooperative, healthy appearing, comfortable, no acute distress and well developed Orientation: Patient oriented x3 Limitations: No limitations Head: Normal to inspection Ears: Hearing grossly normal bilaterally Nose: Normal external nose present Face and sinus: Normal facial exam Eyes: Appearance normal, both eyes and all related structures Neck: Normal visual inspection and Yes full ROM Respiratory: Lungs are starting to sound clear here Cardiovascular: Regular rate and rhythm. Normal S1 and S2 GI: Normal to inspection. Soft to palpation and nontender Skin: Macular erythematous lesions noted to facial cheeks, left and right. Neuro: Patient oriented x3 Extremities: Normal to inspection Results Plan - For macular erythema lesions, referral to dermatology for further evaluation. - For knee pain, advise rest and possible modifications in workload to manage symptoms. Consider scheduling an orthopedic consultation if symptoms persist. - Continue asthma management under pulmonology care. - Maintain regular PAYROLL ASSOCIATE follow-ups for routine screening. Patient was informed and verbally consented to the use of an ambient scribe for clinic note documentation during this visit. Discussion Notes Patient Instructions - Schedule an appointment with a animation director for skin evaluation. - Rest the knees and avoid prolonged standing or heavy lifting. - Continue regular follow-up with your maintenance mechanic supervisor for asthma care. - Attend annual PAYROLL ASSOCIATE visits for routine Pap smears and health screenings. - Monitor for any worsening of symptoms and seek care if needed. [facility] Medical History Fatty liver Anxiety Murmur HTN (hypertension) Chest pain Morbid obesity Asthma COVID-19 COPD (chronic obstructive pulmonary disease) Allergic rhinitis TISHA on CPAP Obesity (BMI 30-39.9) Surgical History S/P laparoscopic sleeve gastrectomy Hx of sinus surgery History of loop electrical excision procedure (LEEP) History of carpal tunnel surgery Family History Father HTN (hypertension) Mother HTN (hypertension) Maternal Grandmother Breast cancer Social History Household Members: None Housing: Apartment Are you a primary primary care pediatrician to a significant other at home: No Do you presently have visiting nurse or other home services: No Alcohol intake: current Alcohol intake frequency: does not drink Patient Tobacco Use Status: Never used Tobacco e-Cigarette/Vaping Use: Never Used Second Hand Smoke Exposure: No service: No Current occupational status: employed Current occupation: [employer] Current occupational exposures/hazards: No Gender identity: Female Cognitive needs: No Hearing needs: No Vision needs: No Female Reproductive History Menstrual Age of Menarche: 17 Questionnaire PHQ-9 Over the last 2 weeks, how often have you been bothered by any of the following problems? 1. Little interest or pleasure in doing things: not at all 2. Feeling down, depressed, or hopeless: not at all 3. Trouble falling or staying asleep, or sleeping too much: not at all 4. Feeling tired or having little energy: not at all 5. Poor appetite or overeating: not at all 6. Feeling bad about yourself - or that you are a failure or have let yourself or your family down: not at all 7. Trouble concentrating on things, such as reading the newspaper or watching television: not at all 8. Moving or speaking so slowly that other people could have noticed. Or the opposite - being so fidgety or restless that you have been moving around a lot more than usual: not at all 9. Thoughts that you would be better off or of hurting yourself in some way: not at all Total score: 0 Depression Screening Interpretation: Negative Depression Screening Done: Yes 43673 - PHQ-9 Billing: Yes Source: Developed by Drs. Kevin Domingo, Roxanna Fernandez, Joe Charles and colleagues, with an educational zoraida from [employer]. Thrive Questionnaire Date Thrive assessed: 01/31/24 I am a: Patient What is your living situation today?: I have a steady place to live Within the past 12 months, did the food you bought not last and you didn't have the money to get more?: Never true Within the past 12 months, did you worry whether your food would run out before you got money to buy more?: Never true Do you have trouble paying for medicines?: No Do you have trouble getting transportation to medical appointments?: No Do you have trouble paying your heating and electricity bill?: No Do you have trouble taking care of your child, family member or friend?: No Do you have trouble with day-to-day activities such as bathing, preparing meals, shopping, managing finances, etc.?: No Are you currently unemployed and looking for a job?: No Are you interested in more education?: No Please select the resources that you would like help with: None Currently or been in a relationship where the following occur: No concerns reported THRIVE Score: 0 AUDIT C Alcohol Use Questionnaire (AUDIT-C) 1. How often do you have a drink containing alcohol?: 2-3 times a week 2. How many drinks containing alcohol do you have on a typical day when you are drinking?: 1 or 2 3. How often do you have six or more drinks on one occasion?: Never Total Score: 3 Score Reviewed/Action Taken: Yes ATIF-7 AMB Questionnaire ATIF-7 Date ATIF - 7 assessed: 01/31/24 Feeling nervous, anxious, or on edge: 0 = Not at all Not being able to stop or control worryin = Not at all Worrying too much about different things: 0 = Not at all Trouble relaxin = Not at all Being so restless that it is hard to sit still: 0 = Not at all Becoming easily annoyed or irritable: 0 = Not at all Feeling afraid as if something awful might happen: 0 = Not at all Total ATIF-7 score (0-4 normal; 5-9 mild; 10-14 moderate; 15-21 severe): 0 Source: Developed by Drs. Kevin Domingo, Roxanna Fernandez, Joe Charles and colleagues, with an educational zoraida from [employer]. ATIF-7 Assessment Billing ATIF-7 Assessment Tool: ATIF-7 Assessment 84426 Physical exam (Primary Care) Vital Signs: Last Vital Signs Pulse 80 01/31/24 14:31 BP 130/74 01/31/24 14:31 Pulse Ox 99 01/31/24 14:31 BMI result Body Mass Index 33.4 Tobacco/Smoking Status: Tobacco use Status Tobacco use date assessed 06/23/23 01/31/24 14:31 Patient Tobacco Use Status Never used Tobacco 01/31/24 14:31 e-Cigarette/Vaping Use Never Used 01/31/24 14:31 PHQ-9: PHQ-9 Score PHQ-9: Total score 0 01/31/24 15:22 Depression Screening Interpretation: Negative Thrive Assessment: Date of Thrive Assessment Date Thrive assessed 01/31/24 01/31/24 14:31 Currently or been in a relationship where the following occur: No concerns reported Office Procedures Flu Questionnaire Does the patient have a severe egg allergy?: No Does the patient have severe life threatening allergies?: No Does the patient have a fever or illness today?: No Has the patient ever had Guillain-[place] Syndrome?: No Has the patient ever had any past reaction to a flu shot?: No Immunizations Fluarix Triv [id number] (PF) 45 mcg (15 mcg x 3)/0.5 mL IM syringe Performing Provider: JC Hamlin Performing Location: [facility] Administered by: Dinh Patel CMA on 01/31/24 16:11 Dose Route Admin Location Dispensed Lot Number Expiration Date [facility] Tractor Expert 0.5 mL IM Right Deltoid 0.5 mL [id number] 08/10/24 [id number] [employer] VIS Given Date VIS Provided VIS Publication Date 01/31/24 Single Vaccine 20 Eligibility Eligibility Date Funding Source Not [facility] Eligible 01/31/24 Private Coding Level of Care Code Est Pt Prev Care 18-39y(11255) Diagnoses Physical exam Z00.00 Skin lesion L98.9 Additional Codes ATIF-7 Assessment Billing - ATIF-7 Assessment Tool: ATIF-7 Assessment 84471 ([id number]) PHQ-9 - 03488 - PHQ-9 Billing: Yes ([id number]) Assessment & Plan Assessment & Plan (1) Physical exam: Code(s): Z00.00 - Encounter for general adult medical examination without abnormal findings Category: Medical (2) Skin lesion: Code(s): L98.9 - Disorder of the skin and subcutaneous tissue, unspecified Category: Medical Plan . Orders: Orders Complete Blood Count Auto Diff Today Z00.00 - Encounter for general adult medical examination without abnormal findings Comprehensive [place]. Panel Fast Today Z00.00 - Encounter for general adult medical examination without abnormal findings TSH reflex Free T4 Today Z00.00 - Encounter for general adult medical examination without abnormal findings UA CC w/rflx Micro + Cult Today Z00.00 - Encounter for general adult medical examination without abnormal findings Lipid Panel Today Z00.00 - Encounter for general adult medical examination without abnormal findings Influenza [id number] Immunization Today Z23 - Encounter for immunization Referrals Dermatology Referral L98.9 - Disorder of the skin and subcutaneous tissue, unspecified
== END 2024-01-31 16:26 | disposition home or self-care (01) ==
PROVIDERS: PCP Nurse Practitioner Family; Visit Provider Nurse Practitioner Family
DX: Z00.00 Encounter for general adult medical examination without abnormal findings (principal); L98.9 Disorder of the skin and subcutaneous tissue, unspecified; Z23 Encounter for immunization

== ENCOUNTER 2024-03-05 10:03 | Outpatient (REF) | payer OTHER, SELFPAY ==
--- NOTE | ~2024-03-05 | XR_ITS ---
EXAMINATION: XR KNEE 1-2 VIEWS LEFT, XR KNEE 1 VIEW RIGHT HISTORY: M25.562 - Pain in left knee COMPARISON: Comparison is made with the prior examination of the left knee dated 09/29/2023. FINDINGS: Standing AP views of both knees and an additional sunrise patella view of the left knee are submitted. Osseous mineralization is normal. There is no fracture or dislocation. There is mild osteoarthritis of the medial compartment with osteophyte formation. The soft tissues are unremarkable. XR/XR knee LT 2V IMPRESSION: Mild osteoarthritis of the medial compartment. Electronically signed by: Kevin Vazquez MD 03/08/2024 02:43 PM [facility]
--- NOTE | ~2024-03-05 | XR_ITS ---
EXAMINATION: XR KNEE 1-2 VIEWS LEFT, XR KNEE 1 VIEW RIGHT HISTORY: M25.562 - Pain in left knee COMPARISON: Comparison is made with the prior examination of the left knee dated 09/29/2023. FINDINGS: Standing AP views of both knees and an additional sunrise patella view of the left knee are submitted. Osseous mineralization is normal. There is no fracture or dislocation. There is mild osteoarthritis of the medial compartment with osteophyte formation. The soft tissues are unremarkable. XR/XR knee RT 1V IMPRESSION: Mild osteoarthritis of the medial compartment. Electronically signed by: Kevin Vazquez MD 03/08/2024 02:43 PM [facility]
== END 2024-03-05 10:04 | disposition home or self-care (01) ==
LOC: HO.HOSX 10:03
PROVIDERS: Visit Provider Physician Assistant
DX: M25.561 Pain in right knee (principal); M25.562 Pain in left knee
CPT/HCPCS: 73560

== ENCOUNTER 2024-03-05 14:20 | Outpatient (AMB) | payer OTHER, SELFPAY ==
--- NOTE | 2024-03-05 14:32 | A.OFFVIS_ITS ---
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 Patient reports she could have been over doing it with her exercises. She mentions that her pain is ongoing since July. Patient expresses that her pain is around the whole knee and her pain is worse when using stairs. Patient has tried and failed Tylenol and icing. 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 Patient states that there was no particular injury or incident started her pain, but states that it has been progressively worsening since that time. Patient states that over the last 1-2 months, her pain has become constant, daily, and worsened with activity, particularly going up and down stairs. Patient states she has been to physical therapy for multiple weeks without any relief. Patient states she has been taking Tylenol every morning with minimal benefit. Patient states she feels she may have overdone the exercises she has been doing to help her lose weight.Denies any numbness or tingling in the left leg. No other acute complaints or concerns at this time. [facility] Medical History Fatty liver Anxiety Murmur HTN (hypertension) Chest pain Morbid obesity Asthma COVID-19 COPD (chronic obstructive pulmonary disease) Allergic rhinitis TISHA on CPAP Obesity (BMI 30-39.9) Surgical History S/P laparoscopic sleeve gastrectomy Hx of sinus surgery History of loop electrical excision procedure (LEEP) History of carpal tunnel surgery Family History Father HTN (hypertension) Mother HTN (hypertension) Maternal Grandmother Breast cancer Social History (Updated 03/05/24 @ 14:35 by Christopher Rodriguez) Household Members: None Housing: Apartment Are you a primary auto care center manager to a significant other at home: No Do you presently have visiting nurse or other home services: No Alcohol intake: current Alcohol intake frequency: does not drink Patient Tobacco Use Status: Never used Tobacco e-Cigarette/Vaping Use: Never Used Second Hand Smoke Exposure: No service: No Current occupational status: employed Current occupation: [employer] Current occupational exposures/hazards: No Gender identity: Female Cognitive needs: No Hearing needs: No Vision needs: No Female Reproductive History Menstrual Age of Menarche: 17 Review of Systems Const All systems reviewed & are unremarkable except as noted in HPI and below Physical Exam Vital Signs: BMI result Body Mass Index 32.1 Extrem Other: Patient's L knee normal to inspection No erythema, ecchymosis, edema noted No lacerations, abrasions, open areas No evidence of infection Patient reports tenderness to palpation of the anterior knee, medial or lateral joint lines, patella, quad tendon, patellar tendon, or posterior knee Patient is able to extend the knee to 0 degrees without difficulty Patient is able to flex the knee to 120 degrees without difficulty Mildly positive Gallo's in the lateral joint line Negative anterior drawer No ligamentous laxity with varus/valgus testing Distal sensation intact Capillary refill brisk Results Reviewed Results Reviewed: X-rays obtained in the office today and independently reviewed by , John Mercado PA-C, demonstrate no fracture or acute bony abnormality of the left knee. Assessment & Plan Assessment & Plan (1) Internal derangement of left knee: Code(s): M23.92 - Unspecified internal derangement of left knee Category: Medical Plan 1. Internal derangement of left knee No acute injury, pain since last July Due to patient is still experiencing joint line pain in the left knee and failing physical therapy, I do feel further imaging with an MRI is indicated MRI of left knee without contrast ordered Patient was amenable to this plan Patient will follow-up after MRI for results review and discussion of further treatment options if indicated, sooner with any acute concerns Orders: Orders XR knee RT 1V 03/05/24 Mario Terrell PA-C M25.561 - Pain in right knee MR knee LT wo con 03/05/24 SAMMY Pruitt M17.12 - Unilateral primary osteoarthritis, left knee XR knee LT 2V 03/05/24 Mario Terrell PA-C M25.562 - Pain in left knee Coding Level of Care Code New Pt Level 3 (66698) Diagnoses Internal derangement of left knee M23.92
[2024-03-05 14:36] VITALS: BMI 32.1
== END 2024-03-05 14:49 | disposition home or self-care (01) ==
PROVIDERS: PCP Nurse Practitioner Family
DX: M23.92 Unspecified internal derangement of left knee (principal)
CPT/HCPCS: 99203

== ENCOUNTER → 2024-03-05 14:23 | Outpatient (BNV) | payer OTHER, SELFPAY | PROVIDERS: Visit Provider Radiology Diagnostic Radiology | DX: M17.0 Bilateral primary osteoarthritis of knee (principal) | CPT/HCPCS: 73560 ==

== ENCOUNTER → 2024-03-27 16:25 | Outpatient (BNV) | payer OTHER, SELFPAY | PROVIDERS: Visit Provider Radiology Diagnostic Radiology | DX: M17.12 Unilateral primary osteoarthritis, left knee (principal); M23.222 Derangement of posterior horn of medial meniscus due to old tear or injury, left knee | CPT/HCPCS: 73721 ==

== ENCOUNTER 2024-04-16 14:21 | Outpatient (AMB) | payer OTHER, SELFPAY ==
--- NOTE | 2024-04-16 14:24 | A.OFFVIS_ITS ---
Vital Signs 04/16/24 14:25 Height 5 ft 4 in Weight 201 lb 11.567 oz BMI 34.6 BP 120/80 Blood Pressure Location Lt brachial Position Sitting Pulse 88 Pulse Source Pulse Oximeter Pulse Oximetry (%) 98 Oxygen Delivery Method Room Air Intake Visit Reasons: Asthma Intake Note: pt is here for follow up of TISHA and needs refill on Breo Sales Promoter Required: No Allergies ENVIRONMENTAL Allergy (Intermediate, Uncoded 04/16/24 14:51) RUNNY NOSE, ASTHMA FLARE UP Medication List - Last Reconciled 04/16/24 by Lisa Wilde MD albuterol sulfate 90 mcg/actuation (ProAir HFA) 2 puffs inhalation Q4-6H PRN biotin 10 mg PO DAILY Breo Ellipta 100-25 mcg/dose (fluticasone furoate-vilanterol) 1 inh inhalation DAILY NS cetirizine (Zyrtec) 10 mg PO DAILY PRN etonogestrel (Nexplanon) subdermal montelukast 10 mg PO BEDTIME 90 days multivitamin (Daily Multi-Vitamin tablet) 1 tab PO DAILY Do you need a note to return to daycare/school/sports/work: No HPI HPI Asthma: Details: This 39 years old female is here for follow-up after 6 months. She has been using her CPAP very regularly except that on some nights she forgets to put it on before she goes to sleep. No issues with the CPAP and she is very happy and sleeping good. Weight is gone up this time and the reason she quotes is painful knees . She has had MRI and may need surgery Breathing remains controlled with the current medical regimen which includes Breo, montelukast, and Zyrtec. [facility] Medical History Fatty liver Anxiety Murmur HTN (hypertension) Chest pain Morbid obesity Asthma COVID-19 COPD (chronic obstructive pulmonary disease) Allergic rhinitis TISHA on CPAP Obesity (BMI 30-39.9) Surgical History S/P laparoscopic sleeve gastrectomy Hx of sinus surgery History of loop electrical excision procedure (LEEP) History of carpal tunnel surgery Family History Father HTN (hypertension) Mother HTN (hypertension) Maternal Grandmother Breast cancer Social History Household Members: None Housing: Apartment Are you a primary care management assistant to a significant other at home: No Do you presently have visiting nurse or other home services: No Alcohol intake: current Alcohol intake frequency: does not drink Patient Tobacco Use Status: Never used Tobacco e-Cigarette/Vaping Use: Never Used Second Hand Smoke Exposure: No service: No Current occupational status: employed Current occupation: [employer] Current occupational exposures/hazards: No Gender identity: Female Cognitive needs: No Hearing needs: No Vision needs: No Female Reproductive History Menstrual Age of Menarche: 17 Review of Systems Const All systems reviewed & are unremarkable except as noted in HPI and below Eyes Reports no additional complaints ENT Reports no additional complaints Card Reports chest pain (It is more like muscular, discomfort across the anterior chest), Denies irregular heart rhythm and Denies leg edema Resp Details: She has her usual mild intermittent cough with some wheezing Reports cough (mild) and Reports wheezing (only occasional ) GI Reports no additional complaints Reports no additional complaints Musc Reports no additional complaints Skin/Breast Reports system reviewed and no additional complaints, except as documented Psych Reports no additional complaints Aller/Immun Reports wheezing (only occasional ) Physical Exam Vital Signs: Last Vital Signs Pulse 88 04/16/24 14:25 BP 120/80 04/16/24 14:25 Pulse Ox 98 04/16/24 14:25 Oxygen Delivery Method Room Air 04/16/24 14:25 BMI result Body Mass Index 34.6 Const General: comfortable, no acute distress, alert and awake Orientation/consciousness: patient oriented x3 HEENT Head: Yes normal to inspection General nose exam: No nasal polyps present and No nasal discharge present Face and sinus: Yes sinuses nontender Mouth: oropharynx normal Throat: Yes posterior oropharynx normal Eyes General: appearance normal, both eyes and all related structures Neck Neck: Yes normal visual inspection, Yes no lymphadenopathy, Yes trachea midline and Yes no JVD Thyroid: Thyroid normal Chest Chest palpation & inspection: normal inspection of the chest, normal palpation of entire chest wall and tenderness (Minimal, nonspecific, tenderness over the anterior chest.) Resp Other: Breath sounds are distant as usual. She does not have any active wheezing, crepitations or rhonchi Cardio Palpation: normal PMI Rate: regular rate Rhythm: regular rhythm Heart sounds: no gallops and no murmurs Peripheral pulses: Peripheral pulses 2+ throughout GI Palpation (GI): Soft to palpation, nontender, No hepatosplenomegaly present and no masses Auscultation: normal bowel sounds Back/Spine/Pelvis Thoracic/Lumbar Spine: thoracic and lumbar spine normal to inspection Skin General skin exam: no rashes or lesions noted Neuro General: patient oriented x3 and no focal motor deficits Cranial nerves: Yes CN's II-XII intact bilaterally Extrem General: Yes normal to inspection, Yes no clubbing, cyanosis or edema and Yes no calf tenderness Psych Appearance: grossly normal and well kempt Speech and movement: Normal speech and movement present Results Reviewed Results Reviewed: Compliance report for the last 30 nights reveals that she has used 27/30 nights, 90%. Average usage per night. 7 hours 16 minutes which is good pressure used mostly. 9-11 cm There is no significant. Air leak Residual AHI only 0.9 Assessment & Plan Assessment & Plan (1) Obesity (BMI 30-39.9): Comment: SHE WAS A CASE OF MORBID OBESITY, THEN UNDERWENT ,POST BARIATRIC SURGERY, LOST ALMOST 100 LBS OF WEIGHT. SINCE HER LAST VISIT SHE HAS NOW PUT ON SOME WEIGHT. THIS IS BECAUSE SHE IS NOT ABLE TO DO MUCH EXERCISE DUE TO ARTHRITIS OF THE KNEES. PHYSICALLY. SEE STILL LOOKS OKAY Code(s): E66.9 - Obesity, unspecified Category: Medical Plan: TALKED TO HER ABOUT THE WEIGHT ALERTED THAT SHE HAS PUT ON SOME WEIGHT. STRESSED THAT SHE NEEDS TO WATCH HER DIET AND TRY TO WALK AROUND MUCH SHE CAN. (2) TISHA on CPAP: Comment: SHE IS A KNOWN CASE OF OBSTRUCTIVE SLEEP APNEA, IT IS WELL TREATED WITH CPAP . PATIENT SHOWS GOOD COMPLIANCE. REMAINS VERY HAPPY WITH THE USE OF CPAP. Code(s): G47.33 - Obstructive sleep apnea (adult) (pediatric); Z99.89 - Dependence on other enabling machines and devices Category: Medical Plan: COMMENDED FOR GOOD COMPLIANCE AND ADVISED TO CONTINUE USING THE CPAP REGULARLY EVERY NIGHT . (3) Allergic rhinitis: Comment: SHE HAS CHRONIC ALLERGIC RHINITIS DUE TO ENVIRONMENTAL ALLERGIES. WITH THE USE OF MONTELUKAST 10 MG DAILY IT HAS BEEN RELATIVELY UNDER GOOD CONTROL. Code(s): J30.9 - Allergic rhinitis, unspecified Category: Medical Plan: .CONTINUE MONTELUKAST 10 MG DAILY CETIRIZINE 10 MG ONCE A DAY ONLY P.R.N.. (4) COPD (chronic obstructive pulmonary disease): Comment: She has combination of bronchial asthma/COPD. Remains well controlled with the use of BREO -100 Code(s): J44.9 - Chronic obstructive pulmonary disease, unspecified Category: Medical Plan: CONTINUE TO USE BREO 100-25 1 INHALATION DAILY PRESCRIPTION RENEWED CONTINUE MONTELUKAST 10 MG DAILY. ALBUTEROL HFA 2 PUFFS Q 6 HOURS P.R.N. Medications: Refilled Breo Ellipta 100-25 mcg/dose (fluticasone furoate-vilanterol) 1 inh inhalation DAILY 60 ea 5RF aSTHMA/COPD MDD ASTHMA/COPD NS Coding Level of Care Code Est Pt Level 3 (98530) Diagnoses Obesity (BMI 30-39.9) E66.9 TISHA on CPAP G47.33; Z99.89 Allergic rhinitis J30.9 COPD (chronic obstructive pulmonary disease) J44.9
[2024-04-16 14:25] VITALS: BP 120/80; PULSE 88; O2SAT 98; BMI 34.6
== END 2024-04-16 14:38 | disposition home or self-care (01) ==
PROVIDERS: PCP Nurse Practitioner Family; Visit Provider Internal Medicine
DX: G47.33 Obstructive sleep apnea (adult) (pediatric) (principal); Z99.89 Dependence on other enabling machines and devices; J44.9 Chronic obstructive pulmonary disease, unspecified
CPT/HCPCS: 99213

== ENCOUNTER → 2024-04-16 14:21 | Outpatient (BNVA) | payer OTHER, SELFPAY | PROVIDERS: PCP Nurse Practitioner Family; Visit Provider Internal Medicine | DX: M17.12 Unilateral primary osteoarthritis, left knee (principal) | CPT/HCPCS: 20610; J1010; J2003 ==

== ENCOUNTER 2024-04-16 14:41 | Outpatient (AMB) | payer OTHER, SELFPAY ==
--- NOTE | 2024-04-16 14:48 | MHC.OFFVIS ---
Vital Signs 04/16/24 14:49 Height 5 ft 4 in Weight 201 lb BMI 34.5 Intake Visit Reasons: O/V left knee MRI rev. Intake Note: Kellie is a 39 year old female who presents today for a left Knee MRI review. Patient reports ongoing pain since July of 2023. IMPRESSION: 1. Mild medial and lateral compartment osteoarthritis, with more significant patellofemoral arthritis. Foci of cartilage thinning/loss as described. Small to moderate-sized joint effusion. 2. Mild truncation of the free margin of the posterior horn lateral meniscus. Menisci are otherwise intact without definitive focal tear. 3. Intrasubstance increased signal within intrasubstance small tear in the fibular collateral ligament. This may be degenerative or based upon old injury. 4. No additional ligamentous abnormalities. 5. Small Alston's cyst. Mild prepatellar bursitis. Allergies ENVIRONMENTAL Allergy (Intermediate, Uncoded 04/16/24 14:51) RUNNY NOSE, ASTHMA FLARE UP HPI HPI O/V left knee MRI rev.: Details: Kellie is a 39 year old female who presents today for a left Knee MRI review. Patient reports ongoing pain since July of 2023. IMPRESSION: 1. Mild medial and lateral compartment osteoarthritis, with more significant patellofemoral arthritis. Foci of cartilage thinning/loss as described. Small to moderate-sized joint effusion. 2. Mild truncation of the free margin of the posterior horn lateral meniscus. Menisci are otherwise intact without definitive focal tear. 3. Intrasubstance increased signal within intrasubstance small tear in the fibular collateral ligament. This may be degenerative or based upon old injury. 4. No additional ligamentous abnormalities. 5. Small Alston's cyst. Mild prepatellar bursitis. [facility] Medical History Fatty liver Anxiety Murmur HTN (hypertension) Chest pain Morbid obesity Asthma COVID-19 COPD (chronic obstructive pulmonary disease) Allergic rhinitis TISHA on CPAP Obesity (BMI 30-39.9) Surgical History S/P laparoscopic sleeve gastrectomy Hx of sinus surgery History of loop electrical excision procedure (LEEP) History of carpal tunnel surgery Family History Father HTN (hypertension) Mother HTN (hypertension) Maternal Grandmother Breast cancer Social History Household Members: None Housing: Apartment Are you a primary manager medicare to a significant other at home: No Do you presently have visiting nurse or other home services: No Alcohol intake: current Alcohol intake frequency: does not drink Patient Tobacco Use Status: Never used Tobacco e-Cigarette/Vaping Use: Never Used Second Hand Smoke Exposure: No service: No Current occupational status: employed Current occupation: [employer] Current occupational exposures/hazards: No Gender identity: Female Cognitive needs: No Hearing needs: No Vision needs: No Female Reproductive History Menstrual Age of Menarche: 17 Review of Systems Const All systems reviewed & are unremarkable except as noted in HPI and below Physical Exam Vital Signs: BMI result Body Mass Index 34.5 Extrem Other: Patient's L knee normal to inspection No erythema, ecchymosis, edema noted No lacerations, abrasions, open areas No evidence of infection Patient reports tenderness to palpation of the anterior knee, particularly medial and lateral to the patella No tenderness of the medial or lateral joint lines, patella, quad tendon, patellar tendon, or posterior knee Patient is able to extend the knee to 0 degrees without difficulty Patient is able to flex the knee to 120 degrees without difficulty Mildly positive Gallo's in the lateral joint line Negative anterior drawer No ligamentous laxity with varus/valgus testing Distal sensation intact Capillary refill brisk Office Procedures Joint Inj/Aspir; Non-Pain Clin Joint Injection/Drain Prep: site was prepped using aseptic technique and injection warnings given Approach Used: anterolateral Procedure: The patient tolerated the procedure well, but had some pain with the injection and there was some relief with the local anesthesia Shoulders, Hips, Knees, Knee Large Joint Injection [id number]: Left Knee Coding Procedure code (CPT) selection complete Assessment & Plan Assessment & Plan (1) Osteoarthritis of left knee: Code(s): M17.12 - Unilateral primary osteoarthritis, left knee Category: Medical Plan 1. Osteoarthritis of the left knee Worst in the patellofemoral compartment The risks and benefits of a steroid injection including but not limited to risk of damage to blood vessels, nerves, tendons, infection, skin bleaching, failure to improve symptoms, increased pain, and possible need for further injections or other intervention were discussed with the patient and the patient wishes to proceed with the steroid injection. Once consent was obtained, I aseptically prepped the area over the anterolateral joint line of the [R/L] knee. I then injected the area over the lateral epicondyle with a combination of [80/40] mg of dexamethasone and 8 mL of 1% lidocaine. The patient tolerated the procedure well with no complications. If the patient continues to experience symptoms over the following few weeks or months, they can make an appointment to return and discuss alternative treatment measures, such as physical therapy. Follow-up prn Coding Level of Care Code Est Pt Level 3 (06353) Diagnoses Osteoarthritis of left knee M17.12 CPT Codes Shoulders, Hips, Knees, - Knee Large Joint Injection : Left Knee ([id number])
[2024-04-16 14:49] VITALS: BMI 34.5
== END 2024-04-16 16:17 | disposition home or self-care (01) ==
DX: M17.12 Unilateral primary osteoarthritis, left knee (principal)
CPT/HCPCS: 20610; 99213

== ENCOUNTER 2024-06-04 08:43 | Outpatient (REF) | payer OTHER, SELFPAY ==
--- NOTE | ~2024-06-04 | XR_ITS ---
CLINICAL HISTORY: M25.562 - Pain in left knee AP standing view bilateral knees Two-view left knee Comparison: None Findings: No fractures or dislocations. Very mild narrowing of the bilateral medial knee compartments. Small osteophytes are present within the left medial and lateral knee compartments. No joint effusion. No radiopaque foreign body. IMPRESSION: Very mild osteoarthritis of the bilateral knees. This document has been electronically signed by: Rosina Bellamy MD on 06/06/2024 13:31:44
== END 2024-06-04 08:44 | disposition home or self-care (01) ==
LOC: HO.HOSX 08:43
DX: M25.562 Pain in left knee (principal)
CPT/HCPCS: 73562

== ENCOUNTER 2024-06-04 12:37 | Outpatient (AMB) | payer OTHER, SELFPAY ==
--- NOTE | 2024-06-04 12:48 | MHC.OFFVIS ---
Vital Signs 06/04/24 12:52 Height 5 ft 4 in Weight 190 lb BMI 32.6 Intake Visit Reasons: OV- left knee pain, s/p inj 04/16/24 Intake Note: Kellie is a 39 year old female who presents today for a follow up visit for her left knee OA s/p left knee injection on 04/16/24. Patient reports after her injections when she returned to normal activities and working out her left knee pain returned and she now states the right knee also has pain. She did not find relief with her last injection however she would like to consult if a repeat injection would be beneficial. She has completed PT before coming to see orthopedics and states this did not give her relief. Tylenol and ibuprofen give very little relief. Allergies ENVIRONMENTAL Allergy (Intermediate, Uncoded 06/04/24 12:52) RUNNY NOSE, ASTHMA FLARE UP HPI HPI OV- left knee pain, s/p inj 04/16/24: Details: Kellie is a 39 year old female who presents today for a follow up visit for her left knee OA s/p left knee injection on 04/16/24. Patient reports after her injections when she returned to normal activities and working out her left knee pain returned and she now states the right knee also has pain. She did not find relief with her last injection however she would like to consult if a repeat injection would be beneficial. She has completed PT before coming to see orthopedics and states this did not give her relief. Patient states understanding that she has not waited enough time for repeat steroid injection. Tylenol and ibuprofen give very little relief. [facility] Medical History Fatty liver Anxiety Murmur HTN (hypertension) Chest pain Morbid obesity Asthma COVID-19 COPD (chronic obstructive pulmonary disease) Allergic rhinitis TISHA on CPAP Obesity (BMI 30-39.9) Surgical History S/P laparoscopic sleeve gastrectomy Hx of sinus surgery History of loop electrical excision procedure (LEEP) History of carpal tunnel surgery Family History Father HTN (hypertension) Mother HTN (hypertension) Maternal Grandmother Breast cancer Social History Household Members: None Housing: Apartment Are you a primary resident care manager to a significant other at home: No Do you presently have visiting nurse or other home services: No Alcohol intake: current Alcohol intake frequency: does not drink Patient Tobacco Use Status: Never used Tobacco e-Cigarette/Vaping Use: Never Used Second Hand Smoke Exposure: No service: No Current occupational status: employed Current occupation: [employer] Current occupational exposures/hazards: No Gender identity: Female Cognitive needs: No Hearing needs: No Vision needs: No Female Reproductive History Menstrual Age of Menarche: 17 Review of Systems Const All systems reviewed & are unremarkable except as noted in HPI and below Physical Exam Vital Signs: BMI result Body Mass Index 32.6 Extrem Other: Patient's L knee normal to inspection No erythema, ecchymosis, edema noted No lacerations, abrasions, open areas No evidence of infection Patient reports tenderness to palpation of the anterior knee, particularly proximal, medial and lateral to the patella No tenderness of the medial or lateral joint lines, patella, quad tendon, patellar tendon, or posterior knee Patient is able to extend the knee to 0 degrees without difficulty Patient is able to flex the knee to 120 degrees without difficulty Mildly positive Gallo's in the lateral joint line Negative anterior drawer No ligamentous laxity with varus/valgus testing Distal sensation intact Capillary refill brisk Results Reviewed Results Reviewed: X-rays obtained in the office today and independently reviewed by me, John Mercado PA-C, demonstrate mild osteoarthritis of the medial compartment of bilateral knees, as well as [id number] patellofemoral arthritis of the left knee. Assessment & Plan Assessment & Plan (1) Osteoarthritis of left knee: Code(s): M17.12 - Unilateral primary osteoarthritis, left knee Category: Medical (2) Patellofemoral arthritis of left knee: Code(s): M17.12 - Unilateral primary osteoarthritis, left knee Category: Medical (3) Patellofemoral arthritis of right knee: Code(s): M17.11 - Unilateral primary osteoarthritis, right knee Category: Medical Plan 1. Osteoarthritis of the left knee Worst in the patellofemoral compartment This time patient was educated she is not due for another injection time Patient is educated feel physical therapy we will helpful for her arthritis worst patellofemoral joint it was feel she would benefit tremendously from quad strengthening to move the until it into anatomic alignment Patient was expresses understanding this is amenable to this plan Follow-up prn Orders: Orders PT Evaluation and Treatment Today M17.11 - Unilateral primary osteoarthritis, right knee, M17.12 - Unilateral primary osteoarthritis, left knee XR knee LT 3V Today M25.562 - Pain in left knee Coding Level of Care Code Est Pt Level 3 (78387) Diagnoses Osteoarthritis of left knee M17.12 Patellofemoral arthritis of left knee M17.12 Patellofemoral arthritis of right knee M17.11
[2024-06-04 12:52] VITALS: BMI 32.6
== END 2024-06-04 13:45 | disposition home or self-care (01) ==
PROVIDERS: PCP Nurse Practitioner Family
DX: M17.0 Bilateral primary osteoarthritis of knee (principal)
CPT/HCPCS: 99213

== ENCOUNTER → 2024-06-04 13:11 | Outpatient (BNV) | payer OTHER, SELFPAY | PROVIDERS: Visit Provider Radiology Diagnostic Radiology | DX: M17.0 Bilateral primary osteoarthritis of knee (principal) | CPT/HCPCS: 73562 ==

== ENCOUNTER 2024-07-09 12:38 | Outpatient (AMB) | payer OTHER, SELFPAY ==
[2024-07-09 12:45] VITALS: BMI 32.6
--- NOTE | 2024-07-09 12:45 | MHC.OFFVIS ---
Vital Signs 07/09/24 12:45 Height 5 ft 4 in Weight 190 lb BMI 32.6 Intake Visit Reasons: Left Knee OA - Injection Intake Note: Kellie is a 39 year old female who presents today for a follow up of her Left Knee OA. Last injection was administered to the left knee on 04/16/24, she would like to repeat injection today. Allergies ENVIRONMENTAL Allergy (Intermediate, Uncoded 07/09/24 12:57) RUNNY NOSE, ASTHMA FLARE UP HPI HPI Left Knee OA - Injection: Details: Kellie is a 39 year old female who presents today for a follow up of her Left Knee OA. Last injection was administered to the left knee on 04/16/24, she would like to repeat injection today. [facility] Medical History Fatty liver Anxiety Murmur HTN (hypertension) Chest pain Morbid obesity Asthma COVID-19 COPD (chronic obstructive pulmonary disease) Allergic rhinitis TISHA on CPAP Obesity (BMI 30-39.9) Surgical History S/P laparoscopic sleeve gastrectomy Hx of sinus surgery History of loop electrical excision procedure (LEEP) History of carpal tunnel surgery Family History Father HTN (hypertension) Mother HTN (hypertension) Maternal Grandmother Breast cancer Social History Household Members: None Housing: Apartment Are you a primary physician locums urgent care to a significant other at home: No Do you presently have visiting nurse or other home services: No Alcohol intake: current Alcohol intake frequency: does not drink Patient Tobacco Use Status: Never used Tobacco e-Cigarette/Vaping Use: Never Used Second Hand Smoke Exposure: No service: No Current occupational status: employed Current occupation: [employer] Current occupational exposures/hazards: No Gender identity: Female Cognitive needs: No Hearing needs: No Vision needs: No Female Reproductive History Menstrual Age of Menarche: 17 Review of Systems Const All systems reviewed & are unremarkable except as noted in HPI and below Physical Exam Vital Signs: BMI result Body Mass Index 32.6 Office Procedures AMB Joint Injection/Aspiration Joint Injection/Aspiration Primary Site: left knee Prep: site was prepped using aseptic technique, ethochloride spray was applied and injection warnings given Injected: 80 mg of, DepoMedrol, with 8 mL of and 1% plain lidocaine Approach Used: anterolateral Procedure: The patient tolerated the procedure well, but had some pain with the injection and there was some relief with the local anesthesia Coding 62322 - Large joint Procedure code (CPT) selection complete Assessment & Plan Assessment & Plan (1) Patellofemoral arthritis of left knee: Code(s): M17.12 - Unilateral primary osteoarthritis, left knee Category: Medical (2) Osteoarthritis of left knee: Code(s): M17.12 - Unilateral primary osteoarthritis, left knee Category: Medical Plan 1. Patellofemoral arthritis of the left knee The risks and benefits of a steroid injection including but not limited to risk of damage to blood vessels, nerves, tendons, infection, skin bleaching, failure to improve symptoms, increased pain, and possible need for further injections or other intervention were discussed with the patient and the patient wishes to proceed with the steroid injection. Once consent was obtained, I aseptically prepped the area over the anterolateral joint line of the left knee. I then injected the area over the lateral epicondyle with a combination of 80 mg of dexamethasone and 8 mL of 1% lidocaine. The patient tolerated the procedure well with no complications. If the patient continues to experience symptoms over the following few weeks or months, they can make an appointment to return and discuss alternative treatment measures, such as physical therapy. Follow-up prn Coding Level of Care Code Procedure Only Diagnoses Patellofemoral arthritis of left knee M17.12 Osteoarthritis of left knee M17.12 CPT Codes Coding - 14911 Large joint: 90054 - Large joint ([id number])
== END 2024-07-09 13:11 | disposition home or self-care (01) ==
LOC: HO.HOS 12:39
PROVIDERS: PCP Nurse Practitioner Family
DX: M17.12 Unilateral primary osteoarthritis, left knee (principal)
CPT/HCPCS: 20610

== ENCOUNTER → 2024-07-09 12:38 | Outpatient (BNVA) | payer OTHER, SELFPAY | PROVIDERS: PCP Nurse Practitioner Family | DX: M17.12 Unilateral primary osteoarthritis, left knee (principal) | CPT/HCPCS: 20610; J1010; J2003 ==

== ENCOUNTER 2024-09-07 09:01 | Outpatient (RCR) | payer OTHER, SELFPAY ==
--- NOTE | 2024-06-28 16:25 | MHC.PT.EP ---
[facility] [place] Office [place] Office [place] Office [address] Tatyana Dent [address] [phone] F: [phone] F: [phone] F: [phone] F: [phone] Physical Therapy Plan of Care Date of Evaluation: 06/28/24 Date of Surgery: N/A Diagnosis: patellofemoral arthritis of left knee (RL) Assessment: pt is a 39 y/o female presenting to physical therapy w/ referring diagnosis of patellofemoral arthritis of left knee. Her signs and symptoms seem consistent w/ poor patellar tracking and patellar alignment. Impairments include pain, decreased range of motion, decreased strength, impaired functional mobility, impaired postural awareness, and altered ambulation mechanics. pt is a good candidate for skilled PT due to age, potential remediation of impairments, typical disease/condition progression and prognosis, comorbidities, and motivation. pt would benefit from skilled PT intervention to provide a tailored strengthening and stretching exercise program, functional training, gait training, postural re-training, neuromuscular re-education, modalities as needed for pain, equipment safety demonstration. Frequency and Duration: The patient will be seen 2x/wk for 4 wks Short Term Goals: pt will be I w/ HEP to promote self-management of condition. pt will demo at least 25% improved glide for medial and inferior patellar mobility. Prison Goals: pt will report a statistically significant improvement in self-reported outcome measure, LEFI, to promote return to PLOF. pt will improve B knee extension strength to 5/5 to promote ease in stair navigation. Treatment Plan: Modalities to reduce pain, spasms and effusion. Manual therapy to restore motion and function. Therapeutic exercise to improve strength and flexibility. Neuromuscular re-education for posture and balance. Therapeutic activities to return to functional activities of daily living. Electronically signed by: Lizz Stuart PT, DPT Please sign and return to therapist. Thank you for your referral.
--- NOTE | 2024-10-19 08:12 | MHC.PT.DC ---
[facility] [place] Office [place] Office [place] Office [address] Tatyana Dent [address] [phone] F: [phone] F: [phone] F: [phone] F: [phone] Physical Therapy Discharge Report Diagnosis: patellofemoral arthritis of left knee (RL) Date of Surgery: N/A Date of Evaluation: 06/28/24 Date of Discharge: 10/19/24 Treatments to Date: 16 Cancellations to Date: 2 No Shows to Date: 0 Discharge Status: Improved Function Independent with HEP Recommend MD Follow-up Discharge Summary: The patient overall reported minimal improvement with physical therapy intervention. She had fair compliance with her home exercise program recommended by her treating therapists. She found the most relief with application of kinesiotape in a stability pattern for bilateral knees. She does present with significant soft tissue to bilateral thighs which may be provided excessive stress to her knees. She may benefit from evaluation of questionable lipedema to determine impact on her knee pain. She does still present with weakness to lower extremities and was advised to continue with her strengthening program. The patient is discharged from this physical therapy plan of care. Electronically signed by: Lizz Stuart PT, DPT Please sign and return to therapist. Thank you for your referral.
== END 2024-10-19 08:12 | disposition home or self-care (01) ==
LOC: HO.PT 09:01
PROVIDERS: PCP Nurse Practitioner Family
DX: M17.0 Bilateral primary osteoarthritis of knee (principal)
CPT/HCPCS: 97035; 97110; 97112; 97140; 97162; 97530

== ENCOUNTER 2024-10-10 13:58 | Outpatient (AMB) | payer OTHER, SELFPAY ==
[2024-10-10 14:11] VITALS: BMI 32.6
--- NOTE | 2024-10-10 14:11 | MHC.OFFVIS ---
Vital Signs 10/10/24 14:11 Height 5 ft 4 in Weight 190 lb BMI 32.6 Intake Visit Reasons: OV: left knee OA, last inj 07/09/24 Intake Note: Kellie is a 39 year old female who presents today for follow up of her left knee osteoarthritis. She was given a left knee cortisone injection at her last visit, 07/09/24. Patient reports the last injection provided good relief. She is interested on another injection today. Allergies ENVIRONMENTAL Allergy (Intermediate, Uncoded 10/10/24 14:11) RUNNY NOSE, ASTHMA FLARE UP HPI HPI OV: left knee OA, last inj 07/09/24: Details: Kellie is a 39 year old female who presents today for follow up of her left knee osteoarthritis. She was given a left knee cortisone injection at her last visit, 07/09/24. Patient reports the last injection provided good relief. She is interested on another injection today. [facility] Medical History Fatty liver Anxiety Murmur HTN (hypertension) Chest pain Morbid obesity Asthma COVID-19 COPD (chronic obstructive pulmonary disease) Allergic rhinitis TISHA on CPAP Obesity (BMI 30-39.9) Surgical History S/P laparoscopic sleeve gastrectomy Hx of sinus surgery History of loop electrical excision procedure (LEEP) History of carpal tunnel surgery Family History Father HTN (hypertension) Mother HTN (hypertension) Maternal Grandmother Breast cancer Social History Household Members: None Housing: Apartment Are you a primary animal caregiver to a significant other at home: No Do you presently have visiting nurse or other home services: No Alcohol intake: current Alcohol intake frequency: does not drink Patient Tobacco Use Status: Never used Tobacco e-Cigarette/Vaping Use: Never Used Second Hand Smoke Exposure: No service: No Current occupational status: employed Current occupation: [employer] Current occupational exposures/hazards: No Gender identity: Female Cognitive needs: No Hearing needs: No Vision needs: No Female Reproductive History Menstrual Age of Menarche: 17 Review of Systems Const All systems reviewed & are unremarkable except as noted in HPI and below Physical Exam Vital Signs: BMI result Body Mass Index 32.6 Office Procedures AMB Joint Injection/Aspiration Joint Injection/Aspiration Primary Site: left knee Prep: site was prepped using aseptic technique, ethochloride spray was applied and injection warnings given Injected: 80 mg of, DepoMedrol, with 8 mL of and 1% plain lidocaine Approach Used: anterolateral Procedure: The patient tolerated the procedure well and there was some relief with the local anesthesia Coding - Large joint Procedure code (CPT) selection complete Assessment & Plan Assessment & Plan (1) Patellofemoral arthritis of left knee: Code(s): M17.12 - Unilateral primary osteoarthritis, left knee Category: Medical (2) Osteoarthritis of left knee: Code(s): M17.12 - Unilateral primary osteoarthritis, left knee Category: Medical Plan 1. Patellofemoral arthritis of the left knee The risks and benefits of a steroid injection including but not limited to risk of damage to blood vessels, nerves, tendons, infection, skin bleaching, failure to improve symptoms, increased pain, and possible need for further injections or other intervention were discussed with the patient and the patient wishes to proceed with the steroid injection. Once consent was obtained, I aseptically prepped the area over the anterolateral joint line of the left knee. I then injected the area over the lateral epicondyle with a combination of 80 mg of dexamethasone and 8 mL of 1% lidocaine. The patient tolerated the procedure well with no complications. If the patient continues to experience symptoms over the following few weeks or months, they can make an appointment to return and discuss alternative treatment measures, such as physical therapy. Follow-up prn Coding Level of Care Code Procedure Only Diagnoses Patellofemoral arthritis of left knee M17.12 Osteoarthritis of left knee M17.12 CPT Codes Coding - 54782 Large joint: 41208 - Large joint ([id number])
--- OUTSIDE RECORDS SUMMARY | 2024-10-10 14:55 | XMS_ITS | Patient Health Record ---
[facility] Organization [facility] Address [address] [place] [address] Care Team Providers Care Pulp Drier Name Role Phone Bernard Franklin MD Primary Care Provider Shaheen Dodge Unavailable [phone] Reason For Referral No Information Medications Medication SIG (Take, Route, Frequency, Duration) Notes Start Date End Date Status Work Note . . .This patient has a fracture right foot and will be totally disabled from work until further notice .; Duration: . Active Physical Therapy . .dx: fracture of ses amoid right first mtpj and sprain of lateral right ankle and midfoot . 2-3x/week; Duration: 3-4 weeks 08/06/2013 Active Advair Diskus 500-50 MCG/DOSE INHALE 1 PUFF TWICE DAILY. RINSE MOUTH AFTER USE Inhalation; Duration: 30 Active Spiriva HandiHaler 18 MCG INHALE CONTENT S OF 1 CAPSULE ONCE DAILY. Inhalation; Duration: 30 Active Work Note . . .This patient has a fracture right foot and will be totally disabled from work until re-evaluation in 3 weeks .; Duration: . 07/12/2013 Active Naproxen 500 MG TAKE 1 TABLET BY MARIANA TH TWICE A DAY WITH MEALS Oral; Duration: 10 Active Enpresse-28 TAKE 1 TABLET BY MARIANA TH ONCE A DAY Oral; Duration: 28 Active Montelukast Sodium 10 MG TAKE 1 TABLET B Y MOUTH AT BEDTIME Oral; Duration: 30 Active buPROPion HCl ER (XL) 150 MG TAKE 1 TABLET BY MOUTH ONCE A DAY Oral; Duration: 30 Active Social History Tobacco use other than smoking: Question Answer Notes Are you an other tobacco user? No Problems Problem Type SNOMED Code ICD Code Onset Dates Problem Status W/U Status Risk Notes Problem Closed fracture of foot (843763732) Fx Foot (825.20) Active confirmed Problem Pain in limb (84352829) Pain in Limb (729.5) Active confirmed Problem Sprain of foot (58049117) Sprain, Foot (845.10) Active confirmed Plan Of Treatment Pending Test Test Name Order Date X ray : Foot, right 3V 08/06/2013 X ray : Foot, right 3V 09/12/2013 Insurance Providers Payer Name Payer Address Payer Phone Subscriber Number Group Number Insured Name Patient Relationship to Insured Coverage Start Date Coverage End Date [facility] [address] [place] [address] [id number] Kellie Abraham Self - patient is the insured Medical (General) History Medical History History ICD Code asthma Chicken pox Surgical History Surgery Date(Month/Year) Leep procedure
== END 2024-10-10 14:35 | disposition home or self-care (01) ==
LOC: HO.HOS 13:59
PROVIDERS: PCP Nurse Practitioner Family
DX: M17.12 Unilateral primary osteoarthritis, left knee (principal)
CPT/HCPCS: 20610

== ENCOUNTER → 2024-10-10 13:58 | Outpatient (BNVA) | payer OTHER, SELFPAY | PROVIDERS: PCP Nurse Practitioner Family | DX: M17.12 Unilateral primary osteoarthritis, left knee (principal) | CPT/HCPCS: 20610; J1010; J2003 ==

== ENCOUNTER 2025-01-04 08:29 | Outpatient (REF) | payer OTHER, SELFPAY ==
--- NOTE | ~2025-01-04 | XR_ITS ---
EXAMINATION: X-ray bilateral knees CLINICAL INFORMATION: Pain COMPARISON: X-ray knees 06/04/2024, 03/05/2024 TECHNIQUE: AP bilateral knees one view. Right knee 2 views. Left knee 2 views. FINDINGS: Right knee: No fracture or dislocation. Minimal medial compartment narrowing.. No effusion. No abnormal soft tissue calcification. Left knee: No acute fracture or dislocation. Mild medial and lateral compartment marginal spurring. Minimal medial compartment narrowing. No effusion. No abnormal soft tissue calcification. XR/XR Knee Esteban 3V IMPRESSION: Right knee: Minimal medial compartment arthritis Left knee: Mild arthritis Electronically signed by: Lan Courtney MD 01/04/2025 01:51 PM EST
--- OUTSIDE RECORDS SUMMARY | 2025-01-04 08:41 | XMS_ITS | Patient Health Record ---
Author Organization [facility] Address [address] [place] [address] Care Team Providers Care Procurement Cost Coordinator Name Role Phone Bernard Franklin MD Primary Care Provider Unavaila Shaheen Metcalf Unavailable [phone] Reason For Referral No Information Medications Medication [...] Risk Notes Problem Closed fracture of foot (661857062) Fx Foot (825.20) Active confirmed Problem Pain in limb (62954326) Pain in Limb (729.5) Active confirmed Problem Sprain of foot (97657376) Sprain, Foot (845.10) Active confirmed Plan Of Treatment Pending Test Test Name Order Date X ray : Foot, right 3V 08/06/2013 X ray : Foot, right 3V 09/12/2013 Insurance Providers Payer Name Payer Address Payer Phone Subscriber Number Group Number Insured Name Patient Relationship to Insured Coverage Start Date Coverage End Date [facility] [address] [place] [address] [id number] Kellie Abraham Self - patient is the insured Medical (General) History Medical History History ICD Code asthma Chicken pox Surgical History Surgery Date(Month/Year) Leep procedure
== END 2025-01-04 08:30 | disposition home or self-care (01) ==
LOC: HO.HOSX 08:29
DX: M17.0 Bilateral primary osteoarthritis of knee (principal)
CPT/HCPCS: 20610; 73562; J0665; J1100; J2003

== ENCOUNTER 2025-01-04 08:31 | Outpatient (AMB) | payer OTHER, SELFPAY ==
--- NOTE | 2025-01-04 08:39 | MHC.OFFVIS ---
Vital Signs 01/04/25 08:40 Height 5 ft 4 in Weight 190 lb BMI 32.6 Intake Visit Reasons: OV: Esteban Knee Pain, LT Knee Inj 10/10/24 Intake Note: Kellie is a 39 year old female who presents today for a follow up of her bilateral knee OA. She was last seen on 10/10/24 where the left knee was injected. No history of right knee injection. Patient complains today of worsening bilateral knee pains. She feels like her left knee is most bothersome today. She has tried physical therapy without relief. She is interested on gel injections. Patient denies any new injuries. Allergies ENVIRONMENTAL Allergy (Intermediate, Uncoded 01/04/25 08:46) RUNNY NOSE, ASTHMA FLARE UP HPI HPI OV: Esteban Knee Pain, LT Knee Inj 10/10/24: Details: Kellie is a 39 year old female who presents today for a follow up of her bilateral knee OA. She was last seen on 10/10/24 where the left knee was injected. No history of right knee injection. Patient complains today of worsening bilateral knee pains. She feels like her left knee is most bothersome today. She has tried physical therapy without relief. She is interested on gel injections. Patient denies any new injuries. The patient states that the right knee has become significantly more bothersome over the last 3-4 months. No other acute complaints or concerns at this time. [facility] Medical History Fatty liver Anxiety Murmur HTN (hypertension) Chest pain Morbid obesity Asthma COVID-19 COPD (chronic obstructive pulmonary disease) Allergic rhinitis TISHA on CPAP Obesity (BMI 30-39.9) Surgical History S/P laparoscopic sleeve gastrectomy Hx of sinus surgery History of loop electrical excision procedure (LEEP) History of carpal tunnel surgery Family History Father HTN (hypertension) Mother HTN (hypertension) Maternal Grandmother Breast cancer Social History Household Members: None Housing: Apartment Are you a primary ostomy care nurse to a significant other at home: No Do you presently have visiting nurse or other home services: No Alcohol intake: current Alcohol intake frequency: does not drink Patient Tobacco Use Status: Never used Tobacco e-Cigarette/Vaping Use: Never Used Second Hand Smoke Exposure: No service: No Current occupational status: employed Current occupation: [employer] Current occupational exposures/hazards: No Gender identity: Female Cognitive needs: No Hearing needs: No Vision needs: No Female Reproductive History Menstrual Age of Menarche: 17 Review of Systems Const All systems reviewed & are unremarkable except as noted in HPI and below Physical Exam Vital Signs: BMI result Body Mass Index 32.6 Office Procedures Joint Inj/Aspir; Non-Pain Clin Joint Injection/Drain Prep: site was prepped using aseptic technique and injection warnings given Approach Used: anterolateral Procedure: The patient tolerated the procedure well and there was some relief with the local anesthesia Shoulders, Hips, Knees, Knee Large Joint Injection 38859: Right Knee Coding Procedure code (CPT) selection complete Assessment & Plan Assessment & Plan (1) Pain in both knees: Code(s): M25.561 - Pain in right knee; M25.562 - Pain in left knee Category: Medical (2) Patellofemoral arthritis of right knee: Code(s): M17.11 - Unilateral primary osteoarthritis, right knee Category: Medical (3) Patellofemoral arthritis of left knee: Code(s): M17.12 - Unilateral primary osteoarthritis, left knee Category: Medical Plan History of Present Illness The patient is a 39-year-old female presenting with bilateral knee pain. The knee pain has been alternating between the left and right knees, with the right knee currently experiencing more severe symptoms. The patient reports that the pain was significant enough to prevent her from going to work on one occasion. Previously, the patient received a steroid injection which provided some relief after a delay of one to two weeks. The patient is considering gel injections, as her uncle had positive results with them. The patient has not had an injection in the right knee before, and the plan is to try a steroid injection there first. If ineffective, gel injections will be considered, and an MRI may be performed if the gel injections do not provide relief. The patient uses tape as advised by her physical therapist, which helps during long work shifts. Review of Systems - Musculoskeletal: Reports bilateral knee pain, more severe on the right side. Denies any other musculoskeletal symptoms. Systems reviewed and are negative except as per HPI and below Physical Exam On inspection, there is no visible deformity of the right knee No edema, erythema, ecchymosis noted No lacerations, abrasions, open areas No evidence of infection Patient reports no tenderness to palpation in the patella, parapatellar region, medial and lateral joint line, posterior knee Patient is able to extend the right knee to 0 degrees and flex to approximately 120 degrees without difficulty No ligamentous laxity noted Distal sensation intact Capillary refill brisk Mildly positive Gallo's Results Procedure - Steroid injection: Informed consent obtained, patient agreed to proceed. Injection administered to the right knee after cleaning and numbing the area with cold spray. Plan Patient was informed and verbally consented to the use of an ambient scribe for clinic note documentation during this visit. 1. Pain in right knee M25.561 The plan includes administering a steroid injection to the right knee, as the patient has not had an injection there before. The risks and benefits of a steroid injection including but not limited to risk of damage to blood vessels, nerves, tendons, infection, skin bleaching, failure to improve symptoms, increased pain, and possible need for further injections or other intervention were discussed with the patient and the patient wishes to proceed with the steroid injection. Once consent was obtained, I aseptically prepped the area over the anterolateral joint line of the right knee. I then injected the area over the lateral epicondyle with a combination of 80 mg of dexamethasone and 8 mL of 1% lidocaine. The patient tolerated the procedure well with no complications. If the patient continues to experience symptoms over the following few weeks or months, they can make an appointment to return and discuss alternative treatment measures, such as physical therapy. Follow-up prn 2. Pain in left knee M25.562 With regards to the left knee, we will start the process of obtaining authorization for gel injections, as steroid injections have not been helpful for her. we will follow-up after we get off for these injections Discussion Notes During the visit, we discussed the patient's bilateral knee pain and the potential benefits of steroid and gel injections. I explained that a steroid injection would be administered to the right knee first, as the patient has not had one there before. If the steroid injection is ineffective, we will consider gel injections and possibly an MRI if needed. The patient was informed about the use of tape as a supportive measure during long work shifts, as advised by her physical therapist. Patient Instructions - Monitor knee pain and report any significant changes or lack of improvement. - Continue using tape as advised by the physical therapist during long work shifts. - Follow up if the pain persists or worsens after the steroid injection. Orders: Orders XR Knee Esteban 3V Today M25.569 - Pain in unspecified knee Coding Level of Care Code Est Pt Level 3 (13180) Diagnoses Pain in both knees M25.561; M25.562 Patellofemoral arthritis of right knee M17.11 Patellofemoral arthritis of left knee M17.12 CPT Codes Shoulders, Hips, Knees, - Knee Large Joint Injection : Right Knee ([id number])
[2025-01-04 08:40] VITALS: BMI 32.6
== END 2025-01-04 08:55 | disposition home or self-care (01) ==
LOC: HO.HOS 08:32
PROVIDERS: PCP Nurse Practitioner Family
DX: M25.561 Pain in right knee (principal); M25.562 Pain in left knee; M17.0 Bilateral primary osteoarthritis of knee
CPT/HCPCS: 20610; 99213

== ENCOUNTER → 2025-01-04 08:39 | Outpatient (BNV) | payer OTHER, SELFPAY | PROVIDERS: Visit Provider Radiology Diagnostic Ultrasound | DX: M17.12 Unilateral primary osteoarthritis, left knee (principal) | CPT/HCPCS: 73562 ==

== ENCOUNTER 2025-02-04 15:04 | Outpatient (AMB) | payer OTHER, SELFPAY ==
--- NOTE | 2025-02-04 15:09 | A.OFFPC_ITS ---
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 Required: No Accompanied by: Self / Same As Patient Allergies ENVIRONMENTAL Allergy (Intermediate, Uncoded 02/04/25 15:32) RUNNY NOSE, ASTHMA FLARE UP Medication List - Last Reconciled 02/04/25 by JOSEFA HamlinP- albuterol sulfate 90 mcg/actuation (ProAir HFA) 2 puffs inhalation Q4-6H PRN biotin 10 mg PO DAILY Breo Ellipta 100-25 mcg/dose (fluticasone furoate-vilanterol) 1 inh inhalation DAILY MDD ASTHMA/COPD NS cetirizine (Zyrtec) 10 mg PO DAILY PRN etonogestrel (Nexplanon) subdermal montelukast 10 mg PO BEDTIME 90 days multivitamin (Daily Multi-Vitamin tablet) 1 tab PO DAILY Tobacco use date assessed: 02/04/25 Dental Screening Dental Screen Date: 02/04/25 Did you have a dental visit in the last 12 months?: Yes Did you have a dental problem in the last 6 months where you did not have access to dental care?: No Was dental information given to patient?: Patient has dentist HPI Annual PE HPI Details History of Present Illness The patient is a 39 year old female presenting for a physical exam. She has a history of asthma and follows up with a pe teacher for this condition. She is also followed by a director of corporate responsibility. Health Maintenance - The patient is due for labs, which she will have drawn fasting in the near future. - The patient has a DIRECTOR SPECIAL EDUCATION provider. - The patient is due for a flu vaccine a nd will receive it today. - The patient will get her pneumonia vac cine at her pharmacy. Social History Review of Systems - Cardiovascular: Denies chest pain. - Respiratory: Denies shortness of breat h. - Gastrointestinal: Denies bowel pain, b lood in stool, constipation, or diarrhea. - Psychiatric: Denies suicidal ideation or homicidal ideation. Physical Exam General: Cooperative, healthy appearing, comfortable, no acute distress and well developed, obese Orientation: Patient oriented x3 Limitations: No limitations Head: Normal to inspection Ears: Hearing grossly normal bilaterally Nose: Normal external nose present Face and sinus: Normal facial exam Eyes: Appearance normal, both eyes and all related structures Neck: Normal visual inspection and Yes full ROM Respiratory: Normal respiratory effort and able to speak in complete sentences. Clear to auscultation bilaterally Cardiovascular: Regular rate and rhythm. Normal S1 and S2. Faint systolic murmur noted GI: Normal to inspection. Soft to palpation and nontender Skin: No rashes or lesions noted Neuro: Patient oriented x3 Extremities: Normal to inspection Results Plan 1. Encounter for general adult medical e xamination without abnormal findings Z00.00 The patient presented for a physical exam. 2. Asthma The patient will continue to follow up with her pe teacher for management of her asthma. 3. Preventative Care She will receive the influenza vaccine today and was advised to get the pneumonia vaccine at her pharmacy. She is due for lab work and will have it done fasting soon. Discussion Notes I discussed the patient's upcoming health maintenance tasks with her. I advised her that she will receive her flu vaccine today, and she should obtain her pneumonia vaccine from a pharmacy. We also noted that she is due for fasting labs, which she will get in the near future. Patient Instructions - You will receive your flu shot today i n the office. - Please go to your pharmacy to get your pneumonia vaccine. - You are due for lab tests. Please go t o a lab to have your blood drawn after fasting (nothing to eat or drink except water for 8-12 hours). - Continue to see your lung doctor (pulm onologist) for your asthma. - Continue to see your DIRECTOR SPECIAL EDUCATION provider for regular check-ups. [facility] Medical History Fatty liver Anxiety Murmur HTN (hypertension) Chest pain Morbid obesity Asthma COVID-19 COPD (chronic obstructive pulmonary disease) Allergic rhinitis TISHA on CPAP Obesity (BMI 30-39.9) Surgical History S/P laparoscopic sleeve gastrectomy Hx of sinus surgery History of loop electrical excision procedure (LEEP) History of carpal tunnel surgery Family History Father HTN (hypertension) Mother HTN (hypertension) Maternal Grandmother Breast cancer Social History Household Members: None Housing: Apartment Are you a primary resident care manager to a significant other at home: No Do you presently have visiting nurse or other home services: No Alcohol intake: current Alcohol intake frequency: does not drink Patient Tobacco Use Status: Never used Tobacco e-Cigarette/Vaping Use: Never Used Second Hand Smoke Exposure: No service: No Current occupational status: employed Current occupation: [employer] Current occupational exposures/hazards: No Gender identity: Female Cognitive needs: No Hearing needs: No Vision needs: No Female Reproductive History Menstrual Age of Menarche: 17 Questionnaire PHQ-9 Over the last 2 weeks, how often have you been bothered by any of the following problems? 1. Little interest or pleasure in doing things: not at all 2. Feeling down, depressed, or hopeless: not at all 3. Trouble falling or staying asleep, or sleeping too much: not at all 4. Feeling tired or having little energy: not at all 5. Poor appetite or overeating: not at all 6. Feeling bad about yourself - or that you are a failure or have let yourself or your family down: not at all 7. Trouble concentrating on things, such as reading the newspaper or watching television: not at all 8. Moving or speaking so slowly that other people could have noticed. Or the opposite - being so fidgety or restless that you have been moving around a lot more than usual: not at all 9. Thoughts that you would be better off or of hurting yourself in some way: not at all Total score: 0 Source: Developed by Drs. Kevin Domingo, Roxanna Fernandez, Joe Charles and colleagues, with an educational zoraida from [employer]. Thrive Questionnaire Date Thrive assessed: 01/31/24 I am a: Patient What is your living situation today?: I have a steady place to live Within the past 12 months, did the food you bought not last and you didn't have the money to get more?: Never true Within the past 12 months, did you worry whether your food would run out before you got money to buy more?: Never true Do you have trouble paying for medicines?: No Do you have trouble getting transportation to medical appointments?: No Do you have trouble paying your heating and electricity bill?: No Do you have trouble taking care of your child, family member or friend?: No Do you have trouble with day-to-day activities such as bathing, preparing meals, shopping, managing finances, etc.?: No Are you currently unemployed and looking for a job?: No Are you interested in more education?: No Please select the resources that you would like help with: None Currently or been in a relationship where the following occur: No concerns reported THRIVE Score: 0 AUDIT C Alcohol Use Questionnaire (AUDIT-C) 1. How often do you have a drink containing alcohol?: 2-3 times a week 2. How many drinks containing alcohol do you have on a typical day when you are drinking?: 1 or 2 3. How often do you have six or more drinks on one occasion?: Never Total Score: 3 ATIF-7 AMB Questionnaire ATIF-7 Date ATIF - 7 assessed: 01/31/24 Feeling nervous, anxious, or on edge: 0 = Not at all Not being able to stop or control worryin = Not at all Worrying too much about different things: 0 = Not at all Trouble relaxin = Not at all Being so restless that it is hard to sit still: 0 = Not at all Becoming easily annoyed or irritable: 1 = Several days Feeling afraid as if something awful might happen: 1 = Several days Total ATIF-7 score (0-4 normal; 5-9 mild; 10-14 moderate; 15-21 severe): 2 Source: Developed by Drs. Kevin Domingo, Roxanna Fernandez, Joe Charles and colleagues, with an educational zoraida from [employer]. Physical exam (Primary Care) Vital Signs: Last Vital Signs Pulse 104 H 02/04/25 15:15 Resp 16 02/04/25 15:15 BP 140/78 H 02/04/25 15:15 Pulse Ox 98 02/04/25 15:15 Oxygen Delivery Method Room Air 02/04/25 15:15 Tobacco/Smoking Status: Tobacco use Status Tobacco use date assessed 02/04/25 02/04/25 15:17 Patient Tobacco Use Status Never used Tobacco 02/04/25 15:11 e-Cigarette/Vaping Use Never Used 02/04/25 15:11 PHQ-9: PHQ-9 Score PHQ-9: Total score 0 02/04/25 15:11 Thrive Assessment: Date of Thrive Assessment Date Thrive assessed 01/31/24 02/04/25 15:11 Currently or been in a relationship where the following occur: No concerns reported Coding Level of Care Code Est Pt Prev Care 18-39y(24553) Diagnoses Physical exam Z00.00 Assessment & Plan Assessment & Plan (1) Physical exam: Code(s): Z00.00 - Encounter for general adult medical examination without abnormal findings Category: Medical Plan . Orders: Orders Lipid Panel Today Z00.00 - Encounter for general adult medical examination without abnormal findings Complete Blood Count Auto Diff Today Z00.00 - Encounter for general adult medical examination without abnormal findings Comprehensive [place]. Panel Fast Today Z00.00 - Encounter for general adult medical examination without abnormal findings TSH reflex Free T4 Today Z00.00 - Encounter for general adult medical examination without abnormal findings UA CC w/rflx Micro + Cult Today Z00.00 - Encounter for general adult medical examination without abnormal findings
[2025-02-04 15:15] VITALS: BP 140/78; PULSE 104; RESP 16; O2SAT 98
[2025-02-04 15:33] VITALS: BP 130/76
--- OUTSIDE RECORDS SUMMARY | 2025-02-04 21:37 | XMS_ITS | Patient Health Record ---
Author Organization [facility] Address [address] [place] [address] Care Team Providers Care Senior Landscape Architect Name Role Phone Bernard Franklin MD Primary Care Provider Unavaila Shaheen Metcalf Unavailable [phone] Reason For Referral No Information Medications Medication [...] Risk Notes Problem Closed fracture of foot (045013420) Fx Foot (825.20) Active confirmed Problem Pain in limb (90449916) Pain in Limb (729.5) Active confirmed Problem Sprain of foot (98748410) Sprain, Foot (845.10) Active confirmed Plan Of Treatment Pending Test Test Name Order Date X ray : Foot, right 3V 08/06/2013 X ray : Foot, right 3V 09/12/2013 Insurance Providers Payer Name Payer Address Payer Phone Subscriber Number Group Number Insured Name Patient Relationship to Insured Coverage Start Date Coverage End Date [facility] [address] [place] [address] [id number] Kellie Abraham Self - patient is the insured Medical (General) History Medical History History ICD Code asthma Chicken pox Surgical History Surgery Date(Month/Year) Leep procedure
== END 2025-02-04 16:38 | disposition home or self-care (01) ==
LOC: HO.HMCC 15:05
PROVIDERS: PCP Nurse Practitioner Family; Visit Provider Nurse Practitioner Family
DX: Z00.00 Encounter for general adult medical examination without abnormal findings (principal); Z23 Encounter for immunization

== ENCOUNTER → 2025-02-04 15:04 | Outpatient (BNVA) | payer OTHER, SELFPAY | PROVIDERS: PCP Nurse Practitioner Family; Visit Provider Nurse Practitioner Family | DX: Z00.00 Encounter for general adult medical examination without abnormal findings (principal); Z23 Encounter for immunization | CPT/HCPCS: 90471; 90656; 96127 ==